=== PATIENT | female | born 1960 | race Caucasian/White ===

== ENCOUNTER 2016-03-16 12:59 | Emergency (ER) | payer MEDICARE, MEDICAID ==
[2016-03-16 13:22] VITALS: BP 153/80
--- NOTE | 2016-03-16 13:22 | UC ---
Respiratory Complaint HPI - HPI Summary HPI Summary: Sob and pain with inspiration for 2 days. Patient reports fever of 102/101 last night and this morning. States she got a flu vaccine in November - History of Current Complaint Chief Complaint: UCRespiratory Stated Complaint: RESP Time Seen by Provider: 03/16/16 13:15 Hx Obtained From: Patient Hx Last Menstrual Period: MENOPAUSE ?: No Onset/Duration: Gradual Onset, Lasting Days - 2, Still Present Timing: Constant Severity Initially: Moderate Severity Currently: Moderate Pain Intensity: 5 Character: Cough: Nonproductive Aggravating Factors: Deep Breaths Alleviating Factors: Bronchodilator - neb Associated Signs And Symptoms: Positive: Fever, Chills, Pleuritic Chest Pain, URI, Sinus Discomfort - Allergies/Home Medications Allergies/Adverse Reactions: Allergies Allergy/AdvReac Type Severity Reaction Status Date / Time Codeine Allergy Difficulty Verified 03/16/16 13:23 Breathing, FACE RED AND SWOLLEN Levofloxacin [From Levaquin] Allergy STOP Verified 03/16/16 13:23 BREATHING Penicillins Allergy Rash Verified 03/16/16 13:23 Sulfa Drugs Allergy Rash Verified 03/16/16 13:23 Tetracycline Allergy Rash Verified 03/16/16 13:23 Azithromycin AdvReac Diarrhea Verified 03/16/16 13:23 Home Medications: Home Medications Acetaminophen [Acetaminophen Extra Stren] 1,000 mg PO PRN 03/16/16 [History] Dextromethorphan Polistirex [Robitussin 12 Hour Cough] 30 mg PO PRN 03/16/16 [ History] PMH/Surg Hx/FS Hx/Imm Hx Previously Healthy: No Endocrine History Of: Reports: Dyslipidemia Denies: Diabetes Cardiovascular History Of: Reports: Hypertension - ON MEDS Denies: Pacemaker/ICD, Congestive Heart Failure Respiratory History Of: Reports: COPD, Asthma GI/ History Of: Reports: Gastrointestinal Bleed Denies: Renal Disease Psychological History Of: Reports: Anxiety, Depression, Bipolar Disorder Cancer History Of: Denies: Breast Cancer Other History Of: Negative For: Anticoagulant Therapy - Surgical History Surgical History: Yes Surgery Procedure, Year, and Place: fusion cervical spine(PART OF METAL REMOVED BUT DOES STILL HAVE METAL IN NECK),. BILATERAL SHOULDER REPAIRS 4 YRS AGO,. laparoscopy of bowel,. both elbows PINCHED NERVES - Family History Known Family History: Positive: Cardiac Disease - father [place] >55 y/o, Hypertension, Respiratory Disease - COPD in mother - Social History Occupation: Disabled Lives: Alone Alcohol Use: Rare Substance Use Type: None Smoking Status (MU): Heavy Every Day Tobacco Smoker Type: Cigarettes Have You Smoked in the Last Year: Yes - "I smoked my last cigarette this morning 03/16/16" "I have patches" Household Exposure Type: Cigarettes - Immunization History Most Recent Influenza Vaccination: 11/2015 Most Recent Tetanus Shot: last 10 years Most Recent Pneumonia Vaccination: none Review of Systems Constitutional: Fever, Chills, Fatigue Skin: Negative Eyes: Negative ENT: Nasal Discharge Respiratory: Shortness Of Breath, Cough Cardiovascular: Chest Pain Gastrointestinal: Negative Genitourinary: Negative Motor: Negative Neurovascular: Negative Musculoskeletal: Negative Neurological: Negative Psychological: Negative All Other Systems Reviewed And Are Negative: Yes Physical Exam Triage Information Reviewed: Yes Appearance: Well-Appearing, No Pain Distress, Obese Vital Signs Reviewed: Yes Eye Exam: Normal Eyes: Positive: Conjunctiva Clear ENT Exam: Normal ENT: Positive: Normal ENT inspection, Hearing grossly normal, Pharynx normal, TMs normal. Negative: Nasal congestion, Nasal drainage, Tonsillar swelling, Tonsillar exudate, Trismus, Muffled/hoarse voice Dental Exam: Normal Neck exam: Normal Neck: Positive: Supple, Nontender, No Lymphadenopathy Respiratory Exam: Normal Respiratory: Positive: Chest non-tender, No respiratory distress, No accessory muscle use, Decreased breath sounds Cardiovascular Exam: Normal Cardiovascular: Positive: RRR, No Murmur, Pulses Normal, Brisk Capillary Refill Musculoskeletal Exam: Normal Musculoskeletal: Positive: Strength Intact, ROM Intact, No Edema Neurological Exam: Normal Neurological: Positive: Alert, Muscle Tone Normal Psychological Exam: Normal Skin Exam: Normal Respiratory Course/Dx - Course Course Of Treatment: biaxin, prednisone, continue nebs, smoking cesation information and support, follow with pcp - Differential Dx/Diagnosis Differential Diagnosis/HQI/PQRI: Asthma, Bronchitis, Exacerbation Of COPD, Influenza, Laryngitis, Lower Resp Infection Provider Diagnoses: Acute exacebation of chronic bronchitis, Nicotine Dependant Discharge - Discharge Plan Condition: Stable Disposition: HOME Prescriptions: Clarithromycin TAB* [Biaxin TAB*] 500 mg PO BID #14 tab predniSONE TAB* [Deltasone TAB*] 10 mg PO DAILY #20 tab Patient Education Materials: How to Stop Smoking (ED), Cigarette Smoking and Your Health (GEN), COPD (Chronic Obstructive Pulmonary Disease) (ED), Chronic Bronchitis (ED), How to Use a Nebulizer (ED) Referrals: Yvoana Montoya MD [Primary Care Provider] - 7 Days Additional Instructions: Good [place] on continuing to be cigarette Free!!! Great Job!!!
--- NOTE | 2016-03-16 14:06 | RAD ---
INDICATION: Fever, shortness of breath, chest congestion. Anterior and posterior chest pain multiple days. COMPARISON: February 04, 2016 chest radiograph and October 31, 2015 CT. TECHNIQUE: Dual energy PA and routine lateral views of the chest were obtained. REPORT: Negative for alveolar consolidation, focal pulmonary lesions, pleural effusion, pneumothorax. Negative for cardiomegaly. Unremarkable central pulmonary vasculature. Mild RIGHT hilar fullness corresponds with borderline enlarged lymph nodes on prior CT. LEFT posterior cervical fusion hardware noted. Multilevel mild thoracic degenerative spondylosis. IMPRESSION: 1. No evidence for pneumonia or pulmonary edema. 2. Mild RIGHT hilar fullness corresponds with borderline enlarged lymph nodes on prior CT.
== END 2016-03-16 14:25 | disposition home or self-care (01) ==
LOC: UCEAST 12:59
DX: J42 Unspecified chronic bronchitis (principal); I10 Essential (primary) hypertension; Z88.5 Allergy status to narcotic agent; Z88.1 Allergy status to other antibiotic agents; Z88.0 Allergy status to penicillin; Z88.2 Allergy status to sulfonamides; F17.210 Nicotine dependence, cigarettes, uncomplicated
CPT/HCPCS: 71020; 99212; G0463

== ENCOUNTER → 2016-05-21 06:59 | Day surgery (SDC) | payer MEDICARE, MEDICAID ==
[~2016-05-21 06:59] MED LIST: Buffered Lidocaine 1% SYRIN* 3 ML/SYR SYRINGE INTRADERM ONE; Dexamethasone IV* 4 MG/ML 1 ML (4 MG) IV SLOW PU ONE; Dexamethasone IV* 4 MG/ML 1 ML (4 MG) ONE; DiMENhydriNATE IV* 50 MG/ML VIAL IV PUSH PRN; Famotidine IV* 10 MG/ML 2 ML (20 mg) IV ONE; Famotidine IV* 10 MG/ML 2 ML (20 mg) ONE; HYDROmorphone* 1 MG/ML 1 ML SYR ONE; Ketorolac INJ* 30 MG/ML 1 ML VIAL ONE; Levalbuterol 1.25MG/0.5ML NEB ONE; Lidocaine 2% PF* 5 ML VIAL ONE; Midazolam* 1 MG/ML 2 ML VIAL (2 MG) ONE; Ondansetron INJ* 2 MG/ML VIAL IV PRN; Ondansetron INJ* 2 MG/ML VIAL ONE; PROCHLORPERAZINE INJ 5 MG/ML 2 ML VIAL IV PRN; Propofol* 10 MG/ML 20 ML BTL IV PUSH ONE; Scopolamine 1.5 mg* PATCH TRANSDERM PRN; Scopolomine PATCH Remove* 1 NOTE MISC PATCH OFF ONE; ceFOXitin 2 GM IVPREMIX* 2 GM/50 ML BAG ONE; fentaNYL* 50 MCG/ML 2 ML VIAL (100 MCG VIAL) IV PRN; fentaNYL* 50 MCG/ML 2 ML VIAL (100 MCG VIAL) ONE
[2016-05-21 11:55] VITALS: BP 121/68
--- NOTE | 2016-05-21 16:16 | OP ---
OPERATIVE REPORT: DATE OF OPERATION: 05/21/16 DATE OF : 62 SURGEON: Brittney Figueroa MD ANESTHESIOLOGIST: Dr. Zavala. ANESTHESIA: General endotracheal. PRE-OP DIAGNOSIS: Endometrial mass. POST-OP DIAGNOSIS: Endometrial polyp. OPERATIVE PROCEDURE: Dilation and curettage, hysteroscopic resection of endometrial polyp. ESTIMATED BLOOD LOSS: Minimal. URINE OUTPUT: 200 cc of yellow urine. FLUIDS: A 1000 cc of crystalloid. Deficit 185 cc. FINDINGS: Reveal normal tubal ostia bilaterally. Normal-appearing fundus. A small endometrial polyp extending off the left posterolateral uterine wall. Normal- appearing cervix. COMPLICATIONS: None apparent. DISPOSITION: Stable to recovery room. SPECIMENS: Endometrial polyp and curettings. DESCRIPTION OF PROCEDURE: The patient was placed in dorsal lithotomy position. Legs were placed in universal Tavon stirrups. The perineum and vagina were prepped and dapped in the sterile standard fashion. The patient was then identified with universal protocol for correct procedure, patient, and position. A straight cath was then used to drain the bladder for approximately 200 cc of yellow urine. Straight cath was removed, sterile speculum was inserted. Cervix was visualized and the anterior lip grasped with a single- tooth tenaculum and dilated to a #23 Prat dilator. A MyoSure hysteroscope was then inserted conforming normal tubal ostia and small 1 cm endometrial polyp. The resection of the polyp was carried out with standard technique. The hysteroscope was then removed. A curettage was performed with good sampling in all 4 quadrants. Single-tooth tenaculum was removed. Hemostasis noted. Sterile speculum removed. All sponge, instrument, and blade counts were correct throughout the case. The patient tolerated the procedure well and went to recovery room in stable condition. [id number]/[facility] #: [id number] [facility]
== END | disposition home or self-care (01) ==
LOC: OR 06:59
PROVIDERS: ATTEND Obstetrics & Gynecology
DX: N84.0 Polyp of corpus uteri (principal); F17.210 Nicotine dependence, cigarettes, uncomplicated; I10 Essential (primary) hypertension; J45.909 Unspecified asthma, uncomplicated
CPT/HCPCS: 88305; A9270-GY; J0694; J1100; J1170; J1885; J2250; J2405; J2704; J3010

== ENCOUNTER 2016-08-13 18:33 | Emergency (ER) | payer MEDICARE, MEDICAID ==
[2016-08-13] MEDS ORDERED: Ketorolac INJ* 60 MG/2 ML VIAL IM ONE (20:03)
[2016-08-13 20:14] LABS: Hematocrit 43 % (35-47); Hemoglobin 14.2 g/dl (12.0-16.0); Mean Corpuscular HGB Conc 33 g/dl (31-36); Mean Corpuscular Hemoglobin 30 pg (27-31); Mean Corpuscular Volume 91 fL (80-97); Mean Platelet Volume 8 um3 (7.4-10.4); Red Blood Count 4.72 10^6/ul (4.0-5.4); Red Cell Distribution Width 15 % (10.5-15); White Blood Count 13.1 10^3/ul (3.5-10.8)
--- NOTE | 2016-08-13 20:34 | RAD ---
Indication: Chest pain for the last month. Shortness of breath. History of COPD and tobacco use. Comparison: August 06, 2016 Technique: Sitting AP and lateral chest views. Report: Elevated lung volumes and both diffuse mild prominence of the interstitial markings and patchy rarefaction of the mid to upper lung zone interstitial markings. No alveolar consolidation, focal pulmonary lesion, pleural effusion, pneumothorax. The heart, pulmonary vasculature, and mediastinal contours are unremarkable. LEFT posterior element spinal fixation hardware at C6-C7. Chronic postsurgical or gross traumatic osteolysis change at the distal clavicles. IMPRESSION: Stigmata of obstructive lung disease. No acute pulmonary or cardiac process evident.
[2016-08-13] MEDS ORDERED: Ondansetron ODT TAB* 4 MG ONE (20:41)
[2016-08-13 20:49] LABS: Albumin 3.7 g/dL (3.2-5.2); BUN/Creatinine Ratio 17.6 (8-20); Calcium 9.1 mg/dL (8.6-10.3); EGFR African American 105.2 (>60); EGFR Non-African American 81.8 (>60); Total Bilirubin 0.2 mg/dL (0.2-1.0); Total Protein 6.7 g/dL (6.4-8.9)
[2016-08-13 20:52] LABS: Potassium 3.9 mmol/L (3.5-5.0)
[2016-08-13] MEDS ORDERED: Ondansetron ODT TAB* 4 MG PO ONE (20:52)
--- NOTE | 2016-08-13 20:54 | ED ---
Fredi Pack Thomas, scribed for Nael Caballero MD on 08/13/16 at 2000 . HPI Chest Pain - HPI Summary HPI Summary: The pt is a 55 y/o F presenting to the ED c/o CP that began 1 month ago. Her pain is described as "pressure, knotlike" and is worse since this AM. The pt takes Tylenol, Advil and Oxycodone for her pain, and she claims that her pain is unaffected by these Tx. She additionally c/o fevers at night, Tmax 102. Recently she went to her PCP who diagnosed her with Lyme Disease and treated her with Abx. She was called by her PCP today and told that she was negative for Lyme Disease. The pt took Advil earlier in the day. SHx: tobacco use, 1 PPD. - History of Current Complaint Chief Complaint: EDChestPainROMI Time Seen by Provider: 08/13/16 19:54 Hx Obtained From: Patient Onset/Duration: Started Weeks Ago - 1 month ago, Still Present, Worse Since - this AM Timing: Constant Current Severity: Severe Pain Intensity: 10 Pain Scale Used: 0-10 Numeric Character: Pressure/Squeezing, Other: - "knotlike" Aggravating Factor(s): Nothing Alleviating Factor(s): Nothing, Other: - NEG: Oxycodone, Tylenol, Advil Associated Signs and Symptoms: Positive: Fever - at night, Tmax 102 - Additional Pertinent History Primary Care Physician: [id number] - Allergy/Home Medications Allergies/Adverse Reactions: Allergies Allergy/AdvReac Type Severity Reaction Status Date / Time Codeine Allergy Difficulty Verified 08/13/16 20:22 Breathing, FACE RED AND SWOLLEN Levofloxacin [From Levaquin] Allergy STOP Verified 08/13/16 20:22 BREATHING Penicillins Allergy Rash Verified 08/13/16 20:22 Sulfa Drugs Allergy Rash Verified 08/13/16 20:22 Tetracycline Allergy Rash Verified 08/13/16 20:22 Azithromycin AdvReac Diarrhea Verified 08/13/16 20:22 PMH/Surg Hx/FS Hx/Imm Hx Previously Healthy: No Endocrine/Hematology History: Denies: Hx Anticoagulant Therapy, Hx Blood Disorders, Hx Diabetes Cardiovascular History: Reports: Hx Hypercholesterolemia, Hx Hypertension - ON MEDICATION Denies: Hx Congestive Heart Failure, Hx Pacemaker/ICD, Other Cardiovascular Problems/Disorders Respiratory History: Reports: Hx Asthma, Hx Chronic Obstructive Pulmonary Disease (COPD), Other Respiratory Problems/Disorders - PNEUMONIA Denies: Hx Sleep Apnea GI History: Reports: Hx Diverticulosis, Hx Gastroesophageal Reflux Disease, Hx Gastrointestinal Bleed, Hx Hiatal Hernia Denies: Other GI Disorders History: Reports: Other Problems/Disorders - UTI's in past Denies: Hx Renal Disease Musculoskeletal History: Reports: Hx Arthritis - bilateral SHOULDER Denies: Other Musculoskeletal History Sensory History: Reports: Hx Cataracts - tammy, Hx Contacts or Glasses - for reading Denies: Hx Hearing Aid Opthamlomology History: Reports: Hx Cataracts - tammy, Hx Contacts or Glasses - for reading Neurological History: Denies: Other Neuro Impairments/Disorders Psychiatric History: Reports: Hx Anxiety, Hx Depression, Hx Bipolar Disorder Denies: Hx Panic Disorder - Cancer History Hx Chemotherapy: No Hx Radiation Therapy: No - Surgical History Surgery Procedure, Year, and Place: fusion cervical spine(PART OF METAL REMOVED BUT DOES STILL HAVE METAL IN NECK),. BILATERAL SHOULDER REPAIRS 4 YRS AGO,. laparoscopy of bowel,. both elbows PINCHED NERVES Hx Anesthesia Reactions: No Infectious Disease History: Reports: Hx of Known/Suspected MRSA - 10 yrs ago- pt states in urine Denies: Traveled Outside the [place] in Last 30 Days - Family History Known Family History: Positive: Cardiac Disease - father [place] >55 y/o, Hypertension, Respiratory Disease - COPD in mother - Social History Alcohol Use: Rare Alcohol Amount: 2 per year Substance Use Type: Reports: None Hx Tobacco Use: Yes Smoking Status (MU): Heavy Every Day Tobacco Smoker Type: Cigarettes Amount Used/How Often: 1/2 ppd Length of Time of Smoking/Using Tobacco: since age 17 Have You Smoked in the Last Year: Yes - "I smoked my last cigarette this morning 03/16/16" "I have patches" Review of Systems Positive: Fever - at night, Tmax 102 Eyes: Negative ENT: Negative Positive: Chest Pain - onset 1 month ago, "pressure and knotlike" Respiratory: Negative Gastrointestinal: Negative Genitourinary: Negative Musculoskeletal: Negative Skin: Negative Neurological: Negative Psychological: Normal All Other Systems Reviewed And Are Negative: Yes Physical Exam Triage Information Reviewed: Yes Vital Signs On Initial Exam: Initial Vitals Temp Pulse Resp BP Pulse Ox 98.5 F 96 20 162/81 92 08/13/16 18:34 08/13/16 18:34 08/13/16 18:34 08/13/16 18:34 08/13/16 18:34 Vital Signs Reviewed: Yes Appearance: Positive: Well-Appearing, Pain Distress - mild discomfort Skin: Positive: Warm, Mottled @ Eyes: Positive: BRYANNA ENT: Positive: Hearing grossly normal Neck: Positive: Supple, Nontender Respiratory/Lung Sounds: Positive: Clear to Auscultation, Breath Sounds Present Cardiovascular: Positive: RRR Abdomen Description: Positive: Nontender, Soft Bowel Sounds: Positive: Present Musculoskeletal: Positive: Strength/ROM Intact Neurological: Positive: Alert, Oriented to Person Place, Time, Normal Gait Psychiatric: Positive: Affect/Mood Appropriate Diagnostics - Vital Signs Vital Signs Temp Pulse Resp BP Pulse Ox 08/13/16 18:34 98.5 F 96 20 162/81 92 - Laboratory Lab Results: Lab Results 08/13/16 08/13/16 08/13/16 Range/Units 20:06 20:06 20:06 WBC 13.1 H (3.5-10.8) 10^3/ul RBC 4.72 (4.0-5.4) 10^6/ul Hgb 14.2 (12.0-16.0) g/dl Hct 43 (35-47) % MCV 91 (80-97) fL MCH 30 (27-31) pg MCHC 33 (31-36) g/dl RDW 15 (10.5-15) % Plt Count 304 (150-450) 10^3/ul MPV 8 (7.4-10.4) um3 Neut % (Auto) 69.7 (38-83) % Lymph % (Auto) 20.9 L (25-47) % [place] % (Auto) 8.1 (1-9) % Eos % (Auto) 0.6 (0-6) % Baso % (Auto) 0.7 (0-2) % Absolute Neuts (auto) 9.2 H (1.5-7.7) 10^3/ul Absolute Lymphs (auto) 2.7 (1.0-4.8) 10^3/ul Absolute Monos (auto) 1.1 H (0-0.8) 10^3/ul Absolute Eos (auto) 0.1 (0-0.6) 10^3/ul Absolute Basos (auto) 0.1 (0-0.2) 10^3/ul Absolute Nucleated RBC 0.01 10^3/ul Nucleated RBC % 0.1 Sodium 137 (133-145) mmol/L Potassium 3.9 (3.5-5.0) mmol/L Chloride 107 (101-111) mmol/L Carbon Dioxide 26 (22-32) mmol/L Anion Gap 4 (2-11) mmol/L BUN 13 (6-24) mg/dL Creatinine 0.74 (0.51-0.95) mg/dL Est GFR ( Amer) 105.2 (>60) Est GFR (Non-Af Amer) 81.8 (>60) BUN/Creatinine Ratio 17.6 (8-20) Glucose 91 (70-100) mg/dL Lactic Acid 0.6 (0.5-2.0) mmol/L Calcium 9.1 (8.6-10.3) mg/dL Total Bilirubin 0.20 (0.2-1.0) mg/dL AST 18 (13-39) U/L ALT 12 (7-52) U/L Alkaline Phosphatase 68 (34-104) U/L Troponin I 0.00 (<0.04) ng/mL Total Protein 6.7 (6.4-8.9) g/dL Albumin 3.7 (3.2-5.2) g/dL Globulin 3.0 (2-4) g/dL Albumin/Globulin Ratio 1.2 (1-3) Result Diagrams: 08/13/16 20:06 08/13/16 20:06 Lab Statement: Any lab studies that have been ordered have been reviewed, and results considered in the medical decision making process. - Radiology CXR Xray Interpretation: No Acute Changes - Stigmata of obstructive lung disease. No acute pulmonary or cardiac process evident. Radiology Interpretation Completed By: Radiologist - EKG 18:44 Cardiac Rate: NL - 88 EKG Interpretation: RBBB Re-Evaluation - Re-Evaluation First Eval Re-Evaluation Time: 20:58 Change: Improved - results d/w pt Chest Pain Course/Dx - Diagnoses Provider Diagnoses: Chest pain Discharge - Discharge Plan Condition: Stable Disposition: HOME Patient Education Materials: Chest Pain (ED) Referrals: Yovana Montoya MD [Primary Care Provider] - 3 Days The documentation as recorded by the Fredi hagan Thomas accurately reflects the service I personally performed and the decisions made by me, Nael Caballero MD.
[2016-08-13 22:58] LABS: Urine Bacteria Absent (Absent); Urine Bilirubin Negative (Negative); Urine Glucose Negative (Negative); Urine Nitrite Negative (Negative)
[2016-08-13 23:55] VITALS: BP 162/80
== END 2016-08-13 23:50 | disposition home or self-care (01) ==
LOC: ED 18:33
DX: R07.9 Chest pain, unspecified (principal); F17.210 Nicotine dependence, cigarettes, uncomplicated
CPT/HCPCS: 36415; 71020; 80053; 81003; 81015; 83605; 84484; 85025; 93005; 96372; 99283; A9270-GY; J1885

== ENCOUNTER 2017-03-09 15:48 | Emergency (ER) | payer MEDICARE, MEDICAID ==
[2017-03-09 16:01] VITALS: BP 150/72
--- NOTE | 2017-03-09 16:11 | UC ---
Upper Extremity HPI - HPI Summary HPI Summary: Pt presents with left shoulder, elbow, and wrist pain s/p fall yesterday. She tells me that yesterday she was downtown waiting for her cab and stepped off the curb onto a patch of ice, her foot slipped forward and she fell onto her left side. Did not hit her head. Woke up this morning with pain in left shoulder , elbow, and wrist. She takes oxycodone for other pain and says this has been helping for this new injury. Denies SOB, chest pain, headaches, dizziness, numbness, tingling, or weakness. - History of Current Complaint Chief Complaint: UCUpperExtremity Stated Complaint: ARM INJURY Time Seen by Provider: 03/09/17 16:04 Hx Obtained From: Patient Hx Last Menstrual Period: MENOPAUSE Onset/Duration: Sudden Onset Severity Initially: Severe Severity Currently: Severe Pain Intensity: 9 Pain Scale Used: 0-10 Numeric Aggravating Factor(s): Movement, Lifting - Allergies/Home Medications Allergies/Adverse Reactions: Allergies Allergy/AdvReac Type Severity Reaction Status Date / Time Codeine Allergy Difficulty Verified 03/09/17 15:57 Breathing, FACE RED AND SWOLLEN Levofloxacin [From Levaquin] Allergy STOP Verified 03/09/17 15:57 BREATHING Penicillins Allergy Rash Verified 03/09/17 15:57 Sulfa Drugs Allergy Rash Verified 03/09/17 15:57 Tetracycline Allergy Rash Verified 03/09/17 15:57 Azithromycin AdvReac Diarrhea Verified 03/09/17 15:57 PMH/Surg Hx/FS Hx/Imm Hx Cardiovascular History: Hypertension Respiratory History: COPD Psychological History: Anxiety, Depression, Bipolar Disorder Other History Of: Negative For: Anticoagulant Therapy - Surgical History Surgical History: Yes Surgery Procedure, Year, and Place: fusion cervical spine(PART OF METAL REMOVED BUT DOES STILL HAVE METAL IN NECK),. BILATERAL SHOULDER REPAIRS 4 YRS AGO,. laparoscopy of bowel,. both elbows PINCHED NERVES - Family History Known Family History: Positive: Cardiac Disease - father [place] >55 y/o, Hypertension, Respiratory Disease - COPD in mother - Social History Alcohol Use: Rare Alcohol Amount: 2 per year Substance Use Type: None Smoking Status (MU): Heavy Every Day Tobacco Smoker Type: Cigarettes Amount Used/How Often: 1/2 ppd Length of Time of Smoking/Using Tobacco: since age 17 Have You Smoked in the Last Year: Yes - "I smoked my last cigarette this morning 03/16/16" "I have patches" Household Exposure Type: Cigarettes Cessation Counseling: Counseled 3+Min - 10 Min - Immunization History Most Recent Influenza Vaccination: 11/2015 Most Recent Tetanus Shot: last 10 years Most Recent Pneumonia Vaccination: none Review of Systems Constitutional: Negative Skin: Negative Respiratory: Negative Cardiovascular: Negative Gastrointestinal: Negative Musculoskeletal: Decreased ROM - Left shoulder and wrist, Other: - Pain left shoulder, elbow, and wrist Neurological: Negative Psychological: Negative All Other Systems Reviewed And Are Negative: Yes Physical Exam Triage Information Reviewed: Yes Appearance: Well-Appearing, No Pain Distress, Well-Nourished Vital Signs: Initial Vital Signs Temp 98 F 03/09/17 15:57 Pulse 87 03/09/17 15:57 Resp 15 03/09/17 15:57 BP 150/72 03/09/17 15:57 Pulse Ox 97 03/09/17 15:57 Vital Signs Reviewed: Yes Neck: Positive: Supple, No Lymphadenopathy, Other: - NTTP. FROM. Respiratory: Positive: No respiratory distress, No accessory muscle use Cardiovascular: Positive: RRR, No Murmur, Pulses Normal - Left UE Musculoskeletal: Positive: ROM Intact - Left wrist and elbow, No Edema, Strength Limited @ - Left shoulder due to pain, ROM Limited @ - Left shoulder due to pain, Other: - TTP over volar aspect of left wrist. TTP over lateral aspect of proximal left forearm. TTP over lateral left shoulder. No obvious bony deformities. Neurological: Positive: Alert, Other: - Sensations intact C4-T1 left UE Psychological: Positive: Age Appropriate Behavior Skin: Positive: Other - No ecchymosis or abrasions left UE Upper Extremity Course/Dx - Course Course Of Treatment: Wrist XR: IMPRESSION: NO FRACTURE OF THE WRIST IS NOTED. PROBABLE OLD ULNAR STYLOID PROCESS FRACTURE. Shoulder XR: IMPRESSION: Widening of AC joint likely due to old injury. No fracture of the left shoulder is noted. Elbow XR: IMPRESSION: No fracture of the left elbow is noted. Suspect her pain is due to soft tissue contusions. Advised to continue taking her at home pain medication as needed. Sling and wrist brace were provided for use for comfort. - Differential Dx/Diagnosis Provider Diagnoses: Left shoulder pain. Left elbow pain. Left wrist pain. Fall Discharge - Discharge Plan Condition: Stable Disposition: HOME Patient Education Materials: Wrist Sprain (ED) Referrals: Yovana Montoya MD [Primary Care Provider] - Additional Instructions: If you develop a fever, shortness of breath, chest pain, new or worsening symptoms - please call your PCP or go to the ED. Your blood pressure was high at todays visit. Please see your primary provider within 4 weeks for recheck and re-evaluation. 1) Rest, Ice, and Elevate your wrist and arm as much as possible over the next 24-48hours 2) Use the brace and sling as needed for discomfort, but try to be out of the sling when at home or when relaxing. Activities as tolerated. 3) May take ibuprofen 400mg every 6-8 hours as needed for pain.
--- NOTE | 2017-03-09 17:05 | RAD ---
Indication: Fall, left elbow pain. 4 views of left elbow demonstrates no fracture. No joint effusion is noted. No other bone or joint abnormality is noted. IMPRESSION: No fracture of the left elbow is noted.
--- NOTE | 2017-03-09 17:07 | RAD ---
Indication: Fall, left shoulder injury. 4 views of left shoulder demonstrates no fracture. There is evidence of prior AC joint surgery. IMPRESSION: Widening of AC joint likely due to old injury. No fracture of the left shoulder is noted.
--- NOTE | 2017-03-09 17:07 | RAD ---
Indication: Left wrist injury 3 views of the wrist demonstrates no fracture. There is likely degenerative changes of the radiocarpal joint. Evidence of old ulnar styloid fracture is noted.. IMPRESSION: NO FRACTURE OF THE WRIST IS NOTED. PROBABLE OLD ULNAR STYLOID PROCESS FRACTURE.
== END 2017-03-09 17:40 | disposition home or self-care (01) ==
LOC: UCEAST 15:48
DX: M25.512 Pain in left shoulder (principal); M25.522 Pain in left elbow; M25.532 Pain in left wrist; W00.0XXA Fall on same level due to ice and snow, initial encounter; Y92.480 Sidewalk as the place of occurrence of the external cause; I10 Essential (primary) hypertension; J44.9 Chronic obstructive pulmonary disease, unspecified; F31.9 Bipolar disorder, unspecified
CPT/HCPCS: 99213; G0463

== ENCOUNTER 2017-05-08 11:56 | Emergency (ER) | payer MEDICARE, MEDICAID ==
[2017-05-08 12:05] VITALS: BP 152/71
--- NOTE | 2017-05-08 12:37 | UC ---
Respiratory Complaint HPI - HPI Summary HPI Summary: This is a 56 yo female with COPD who presents with c/o 4d of cough, fever and mild SOB. She has been using her inhalers as prescribed including Breo and Incruse. She has a nebulizer machine at home, which she has been using but reports little improvement in symptoms. She had fever x 2d up to 102. No body aches. No n/v/d. Current smoker. - History of Current Complaint Chief Complaint: UCRespiratory Stated Complaint: COUGH,FEVER Hx Last Menstrual Period: MENOPAUSE Pain Intensity: 7 - Allergies/Home Medications Allergies/Adverse Reactions: Allergies Allergy/AdvReac Type Severity Reaction Status Date / Time azithromycin Allergy Diarrhea Verified 05/08/17 12:08 codeine Allergy Difficulty Verified 05/08/17 12:08 Breathing levofloxacin [From Levaquin] Allergy See Comment Verified 05/08/17 12:08 MS Codeine [Codeine] Allergy Difficulty Verified 04/26/17 15:49 Breathing, FACE RED AND SWOLLEN MS Levofloxacin Allergy STOP Verified 04/26/17 15:49 [From Levaquin] BREATHING MS Penicillins [Penicillins] Allergy Rash Verified 04/26/17 15:49 MS Sulfa Drugs [Sulfa Drugs] Allergy Rash Verified 04/26/17 15:49 MS Tetracycline Allergy Rash Verified 04/26/17 15:49 [Tetracycline] Penicillins Allergy Rash Verified 05/08/17 12:08 Sulfa (Sulfonamide Allergy Rash Verified 05/08/17 12:08 Antibiotics) tetracycline Allergy Rash Verified 05/08/17 12:08 MS Azithromycin AdvReac Diarrhea Verified 04/26/17 15:49 [Azithromycin] Home Medications: Home Medications Mirtazapine 7.5 mg PO 05/08/17 [History] Sertraline HCl [Zoloft] 200 mg PO 05/08/17 [History] PMH/Surg Hx/FS Hx/Imm Hx Respiratory History: COPD Other History Of: Negative For: Anticoagulant Therapy - Surgical History Surgical History: Yes Surgery Procedure, Year, and Place: fusion cervical spine(PART OF METAL REMOVED BUT DOES STILL HAVE METAL IN NECK),. BILATERAL SHOULDER REPAIRS 4 YRS AGO,. laparoscopy of bowel,. both elbows PINCHED NERVES REPAIRED. UTERINE POLYP REMOVED- - Family History Known Family History: Positive: Cardiac Disease - father [place] >55 y/o, Hypertension, Respiratory Disease - COPD in mother - Social History Alcohol Use: Rare Alcohol Amount: 2 per year Substance Use Type: None Smoking Status (MU): Light Every Day Tobacco Smoker Type: Cigarettes Amount Used/How Often: 1/2 ppd Length of Time of Smoking/Using Tobacco: since age 17 Have You Smoked in the Last Year: Yes - "I smoked my last cigarette this morning 03/16/16" "I have patches" Household Exposure Type: Cigarettes - Immunization History Most Recent Influenza Vaccination: 11/2015 Most Recent Tetanus Shot: last 10 years Most Recent Pneumonia Vaccination: none Review of Systems Constitutional: Fever, Fatigue Skin: Negative Eyes: Negative ENT: Sore Throat Respiratory: Shortness Of Breath, Cough Cardiovascular: Negative Gastrointestinal: Negative Genitourinary: Negative Motor: Negative Neurovascular: Negative Musculoskeletal: Negative Neurological: Negative Psychological: Negative Is Patient Immunocompromised?: No All Other Systems Reviewed And Are Negative: Yes Physical Exam Triage Information Reviewed: Yes Appearance: Ill-Appearing - mildly Vital Signs: Initial Vital Signs Temp 98.3 F 05/08/17 12:02 Pulse 92 05/08/17 12:02 Resp 18 05/08/17 12:02 BP 152/71 05/08/17 12:02 Pulse Ox 97 05/08/17 12:02 Vital Signs Reviewed: Yes Eye Exam: Normal ENT: Positive: Pharyngeal erythema - mild, TM dull Neck: Positive: Supple, Nontender, No Lymphadenopathy Respiratory: Positive: Wheezing - faint in upper airways. Negative: Crackles, Rhonchi Cardiovascular: Positive: RRR, No Murmur Abdomen Description: Positive: Nontender Musculoskeletal Exam: Normal Neurological Exam: Normal Psychological Exam: Normal Skin Exam: Normal UC Diagnostic Evaluation - Laboratory O2 Sat by Pulse Oximetry: 97 Diagnostic Studies Comment: Rapid flu - neg. CXR - no evidence of PNA or other acute process Respiratory Course/Dx - Course Course Of Treatment: 56 yo female with cough/fever. CXR neg for PNA, influenza testing neg. Treat for COPD exacerbation with doxycycline and short course of prednisone - Differential Dx/Diagnosis Differential Diagnosis/HQI/PQRI: Bronchitis, Exacerbation Of COPD, Lower Resp Infection Provider Diagnoses: COPD exacerbation Discharge - Sign-Out/Discharge Documenting (check all that apply): Discharge - Discharge Plan Condition: Stable Disposition: HOME Prescriptions: DOXYcycline CAP(*) [DOXYcycline 100MG CAP(*)] 100 mg PO BID #14 cap predniSONE TAB* [Deltasone TAB*] 40 mg PO DAILY #10 tab Patient Education Materials: Acute Bronchitis (ED) Referrals: Yovana Montoya MD [Primary Care Provider] - If Needed Additional Instructions: Instructions: 1. Cont your usual inhaled medications 2. Take antibiotics and prednisone as directed 3. Follow up with your PCP if symptoms do not improve - Billing Disposition and Condition Condition: STABLE Disposition: HOME
--- NOTE | 2017-05-08 13:04 | RAD ---
INDICATION: Cough, fever, chest pain. COMPARISON: January 10, [address] TECHNIQUE: Dual energy PA and routine lateral views of the chest were obtained. REPORT: Elevated lung volumes and both diffuse mild prominence of the interstitial markings and patchy rarefaction of the mid to upper lung zone interstitial markings. No focal pulmonary lesion, compelling alveolar consolidation, pleural effusion, pneumothorax. The heart, pulmonary vasculature, and mediastinal contours are unremarkable. LEFT side cervical spine posterior element fusion hardware. IMPRESSION: Stigmata of obstructive lung disease. No acute pulmonary or cardiac process evident.
== END 2017-05-08 13:23 | disposition home or self-care (01) ==
LOC: UCEAST 11:56
DX: J44.1 Chronic obstructive pulmonary disease with (acute) exacerbation (principal); Z88.1 Allergy status to other antibiotic agents; Z88.5 Allergy status to narcotic agent; Z88.0 Allergy status to penicillin; Z88.2 Allergy status to sulfonamides; F17.210 Nicotine dependence, cigarettes, uncomplicated
CPT/HCPCS: 71046; 87502; 99212; G0463

== ENCOUNTER 2017-07-10 18:47 | Emergency (ER) | payer MEDICARE, MEDICAID ==
[2017-07-10] MEDS ORDERED: diPHENhydraMINE IV* 50 MG/ML 1 ml VIAL (BENADRYL) IV ONE (19:08)
[2017-07-10] MEDS ORDERED: methylPREDNISolone 125 MG* 2 ML VIAL IV ONE (19:08)
[2017-07-10] MEDS ORDERED: Metoclopramide IV* 5 MG/ML 2 ML VIAL IV ONE (19:13)
[2017-07-10 19:29] LABS: ABS Basophils 0.2 10^3/ul (0-0.2); ABS Eosinophils 0.4 10^3/ul (0-0.6); ABS Monocytes 0.9 10^3/ul (0-0.8); ABS Neutrophils 6.8 10^3/ul (1.5-7.7); ABS Nucleated RBC 0 10^3/ul; Eosinophil % 3.4 % (0-6); Hematocrit 38 % (35-47); Hemoglobin 12.8 g/dl (12.0-16.0); Mean Corpuscular HGB Conc 34 g/dl (31-36); Mean Corpuscular Hemoglobin 30 pg (27-31); Mean Corpuscular Volume 90 fL (80-97); Mean Platelet Volume 6.9 um3 (7.4-10.4); Nucleated Red Blood Cells % 0.2; Platelet Count 284 10^3/ul (150-450); Red Blood Count 4.24 10^6/ul (4.0-5.4); Red Cell Distribution Width 14 % (10.5-15); White Blood Count 11.2 10^3/ul (3.5-10.8)
--- NOTE | 2017-07-10 19:39 | RAD ---
INDICATION: Headaches COMPARISON: July 17, 2008 TECHNIQUE: Noncontrast axial source images were acquired from the skull base to the vertex. FINDINGS: Ventricles/sulci: The ventricles and cisterns are normal in size and configuration for age. Brain parenchyma: There is no focal parenchymal finding, evidence of intracranial mass, or intracranial mass effect. Intracranial hemorrhage:None. Extra-axial spaces: There are no abnormal extra axial fluid collections or evidence of extra-axial mass. Calvarium: There is no calvarial fracture or other calvarial abnormality. Scalp: There is no evidence of scalp or extracalvarial soft tissue abnormality. Paranasal sinuses/mastoid: The paranasal sinuses and mastoid air cells are clear. Other: None. IMPRESSION: No acute intracranial findings or significant changes relative to the 2009 examinations
[2017-07-10 19:44] LABS: EGFR Non-African American 68.5 (>60)
--- NOTE | 2017-07-10 19:46 | RAD ---
INDICATION: Short of breath COMPARISON: May 08, 2017 TECHNIQUE: PA and lateral dual-energy views were obtained. FINDINGS: Bones/Soft Tissues: There are no acute bony findings. Cardiomediastinal: The cardiomediastinal silhouette is normal. Lungs: There are no infiltrates. Pleura: There are no pleural effusions. Other: None IMPRESSION: NO ACTIVE DISEASE.
[2017-07-10] MEDS ORDERED: Albuterol/Ipratropium NEB.SOL* Albuterol 2.5 MG/Ipratropium 0.5 MG 3 ML INH SCH (20:00)
[2017-07-10] MEDS ORDERED: oxyCODONE TAB* 5 MG TAB PO ONE (20:42)
[2017-07-10 21:05] VITALS: BP 154/91
--- NOTE | 2017-07-10 21:07 | ED ---
Iron Pack Stephanie, scribed for Allen Moreno MD on 07/10/17 at 1917 . Complex/Multi-Sys Presentation - HPI Summary HPI Summary: The pt is a 56 y/o F presenting to the ED with c/o SHEN that began 2 weeks ago. Symptoms include SOB, nausea, fever (101 F on 07/09/17) and L ear ache. She reports her prolactin was 7.5. - History Of Current Complaint Chief Complaint: EDHeadache Time Seen by Provider: 07/10/17 19:02 Hx Obtained From: Patient Onset/Duration: Gradual Onset, Lasting Weeks - 2, Still Present Timing: Constant Severity Currently: Moderate Character: Migraine Associated Signs And Symptoms: Positive: Headache, SOB, Nausea, Fever, Other - L ear ache - Allergies/Home Medications Allergies/Adverse Reactions: Allergies Allergy/AdvReac Type Severity Reaction Status Date / Time azithromycin Allergy Diarrhea Verified 05/08/17 12:08 codeine Allergy Difficulty Verified 05/08/17 12:08 Breathing levofloxacin [From Levaquin] Allergy See Comment Verified 05/08/17 12:08 Penicillins Allergy Rash Verified 05/08/17 12:08 Sulfa (Sulfonamide Allergy Rash Verified 05/08/17 12:08 Antibiotics) tetracycline Allergy Rash Verified 05/08/17 12:08 PMH/Surg Hx/FS Hx/Imm Hx Endocrine/Hematology History: Denies: Hx Anticoagulant Therapy, Hx Blood Disorders, Hx Diabetes Cardiovascular History: Reports: Hx Hypercholesterolemia, Hx Hypertension - ON MEDICATION Denies: Hx Congestive Heart Failure, Hx Pacemaker/ICD, Other Cardiovascular Problems/Disorders Respiratory History: Reports: Hx Asthma, Hx Chronic Obstructive Pulmonary Disease (COPD), Other Respiratory Problems/Disorders - PNEUMONIA Denies: Hx Sleep Apnea GI History: Reports: Hx Diverticulosis, Hx Gastroesophageal Reflux Disease, Hx Gastrointestinal Bleed, Hx Hiatal Hernia Denies: Other GI Disorders History: Reports: Other Problems/Disorders - UTI's in past Denies: Hx Renal Disease Musculoskeletal History: Reports: Hx Arthritis - bilateral SHOULDER Denies: Other Musculoskeletal History Sensory History: Reports: Hx Cataracts - tammy, Hx Contacts or Glasses - for reading Denies: Hx Hearing Aid Opthamlomology History: Reports: Hx Cataracts - tammy, Hx Contacts or Glasses - for reading Neurological History: Denies: Other Neuro Impairments/Disorders Psychiatric History: Reports: Hx Anxiety, Hx Depression, Hx Bipolar Disorder Denies: Hx Panic Disorder - Cancer History Hx Chemotherapy: No Hx Radiation Therapy: No - Surgical History Surgery Procedure, Year, and Place: fusion cervical spine(PART OF METAL REMOVED BUT DOES STILL HAVE METAL IN NECK),. BILATERAL SHOULDER REPAIRS 4 YRS AGO,. laparoscopy of bowel,. both elbows PINCHED NERVES REPAIRED. UTERINE POLYP REMOVED- Hx Anesthesia Reactions: No - Immunization History Date of Tetanus Vaccine: due now Date of Influenza Vaccine: utd Infectious Disease History: Yes Infectious Disease History: Reports: Hx of Known/Suspected MRSA - 10 yrs ago- pt states in urine Denies: Traveled Outside the [place] in Last 30 Days - Family History Known Family History: Positive: Cardiac Disease - father [place] >55 y/o, Hypertension, Respiratory Disease - COPD in mother - Social History Occupation: Disabled Lives: Alone Alcohol Use: Rare Alcohol Amount: 2 per year Substance Use Type: Reports: None Hx Tobacco Use: Yes Smoking Status (MU): Light Every Day Tobacco Smoker Type: Cigarettes Amount Used/How Often: 1/2 ppd Length of Time of Smoking/Using Tobacco: since age 17 Have You Smoked in the Last Year: Yes - "I smoked my last cigarette this morning 03/16/16" "I have patches" Review of Systems Positive: Fever Positive: Ear Ache - L Positive: Shortness Of Breath Positive: Nausea Positive: Headache All Other Systems Reviewed And Are Negative: Yes Physical Exam - Summary Physical Exam Summary: VITAL SIGNS: Reviewed. GENERAL: Patient is a well-developed and nourished FEMALE who is lying comfortable in the stretcher. Patient is not in any acute respiratory distress. HEAD AND FACE: No signs of trauma. No ecchymosis, hematomas or skull depressions. No sinus tenderness. EYES: PERRLA, EOMI x 2, No injected conjunctiva, no nystagmus. EARS: Hearing grossly intact. Ear canals and tympanic membranes are within normal limits. MOUTH: Oropharynx within normal limits. NECK: Supple, trachea is midline, no adenopathy, no JVD, no carotid bruit, no c- spine tenderness, neck with full ROM. CHEST: Symmetric, no tenderness at palpation LUNGS: Wheezing, decreased breath sounds bilaterally CVS: Regular rate and rhythm, S1 and S2 present, no murmurs or gallops appreciated. ABDOMEN: Soft, non-tender. No signs of distention. No rebound no guarding, and no masses palpated. Bowel sounds are normal. EXTREMITIES: FROM in all major joints, no edema, no cyanosis or clubbing. NEURO: Alert and oriented x 3. No acute neurological deficits. Speech is normal and follows commands. SKIN: Dry and warm Triage Information Reviewed: Yes Vital Signs On Initial Exam: Initial Vitals Temp Pulse Resp BP Pulse Ox 98.5 F 77 22 164/105 96 07/10/17 18:56 07/10/17 18:56 07/10/17 18:56 07/10/17 18:56 07/10/17 18:56 Vital Signs Reviewed: Yes Diagnostics - Vital Signs Vital Signs Temp Pulse Resp BP Pulse Ox 07/10/17 18:56 98.5 F 77 22 164/105 96 - Laboratory Lab Results: Lab Results 07/10/17 07/10/17 07/10/17 Range/Units 19:21 19:21 19:21 WBC 11.2 H (3.5-10.8) 10^3/ul RBC 4.24 (4.0-5.4) 10^6/ul Hgb 12.8 (12.0-16.0) g/dl Hct 38 (35-47) % MCV 90 (80-97) fL MCH 30 (27-31) pg MCHC 34 (31-36) g/dl RDW 14 (10.5-15) % Plt Count 284 (150-450) 10^3/ul MPV 6.9 L (7.4-10.4) um3 Neut % (Auto) 60.5 (38-83) % Lymph % (Auto) 27.0 (25-47) % [place] % (Auto) 7.7 H (0-7) % Eos % (Auto) 3.4 (0-6) % Baso % (Auto) 1.4 (0-2) % Absolute Neuts (auto) 6.8 (1.5-7.7) 10^3/ul Absolute Lymphs (auto) 3.0 (1.0-4.8) 10^3/ul Absolute Monos (auto) 0.9 H (0-0.8) 10^3/ul Absolute Eos (auto) 0.4 (0-0.6) 10^3/ul Absolute Basos (auto) 0.2 (0-0.2) 10^3/ul Absolute Nucleated RBC 0 10^3/ul Nucleated RBC % 0.2 APTT 29.7 (26.0-36.3) seconds Sodium 137 L (139-145) mmol/L Potassium 3.7 (3.5-5.0) mmol/L Chloride 105 (101-111) mmol/L Carbon Dioxide 23 (22-32) mmol/L Anion Gap 9 (2-11) mmol/L BUN 16 (6-24) mg/dL Creatinine 0.86 (0.51-0.95) mg/dL Est GFR ( Amer) 88.1 (>60) Est GFR (Non-Af Amer) 68.5 (>60) BUN/Creatinine Ratio 18.6 (8-20) Glucose 112 H (70-100) mg/dL Calcium 9.1 (8.6-10.3) mg/dL Total Bilirubin 0.20 (0.2-1.0) mg/dL AST 16 (13-39) U/L ALT 16 (7-52) U/L Alkaline Phosphatase 70 (34-104) U/L Troponin I 0.00 (<0.04) ng/mL C-Reactive Protein 5.58 H (< 5.00) mg/L B-Natriuretic Peptide ( - 100) pg/mL Total Protein 7.1 (6.4-8.9) g/dL Albumin 3.9 (3.2-5.2) g/dL Globulin 3.2 (2-4) g/dL Albumin/Globulin Ratio 1.2 (1-3) //18 Range/Units 19:21 WBC (3.5-10.8) 10^3/ul RBC (4.0-5.4) 10^6/ul Hgb (12.0-16.0) g/dl Hct (35-47) % MCV (80-97) fL MCH (27-31) pg MCHC (31-36) g/dl RDW (10.5-15) % Plt Count (150-450) 10^3/ul MPV (7.4-10.4) um3 Neut % (Auto) (38-83) % Lymph % (Auto) (25-47) % [place] % (Auto) (0-7) % Eos % (Auto) (0-6) % Baso % (Auto) (0-2) % Absolute Neuts (auto) (1.5-7.7) 10^3/ul Absolute Lymphs (auto) (1.0-4.8) 10^3/ul Absolute Monos (auto) (0-0.8) 10^3/ul Absolute Eos (auto) (0-0.6) 10^3/ul Absolute Basos (auto) (0-0.2) 10^3/ul Absolute Nucleated RBC 10^3/ul Nucleated RBC % APTT (26.0-36.3) seconds Sodium (139-145) mmol/L Potassium (3.5-5.0) mmol/L Chloride (101-111) mmol/L Carbon Dioxide (22-32) mmol/L Anion Gap (2-11) mmol/L BUN (6-24) mg/dL Creatinine (0.51-0.95) mg/dL Est GFR ( Amer) (>60) Est GFR (Non-Af Amer) (>60) BUN/Creatinine Ratio (8-20) Glucose (70-100) mg/dL Calcium (8.6-10.3) mg/dL Total Bilirubin (0.2-1.0) mg/dL AST (13-39) U/L ALT (7-52) U/L Alkaline Phosphatase (34-104) U/L Troponin I (<0.04) ng/mL C-Reactive Protein (< 5.00) mg/L B-Natriuretic Peptide 14 ( - 100) pg/mL Total Protein (6.4-8.9) g/dL Albumin (3.2-5.2) g/dL Globulin (2-4) g/dL Albumin/Globulin Ratio (1-3) Result Diagrams: 07/10/17 19:21 07/10/17 19:21 Lab Statement: Any lab studies that have been ordered have been reviewed, and results considered in the medical decision making process. - Radiology CXR Xray Interpretation: No Acute Changes Radiology Interpretation Completed By: Radiologist - NO ACTIVE DISEASE. ED physician has reviewed this report. - CT Brain CT Interpretation: No Acute Changes CT Interpretation Completed By: Radiologist - No acute intracranial findings or significant changes relative to the 2009 examinations. ED physician has reviewed this report. - EKG 20:16 Cardiac Rate: NL EKG Rhythm: Sinus Rhythm - 95 BPM EKG Interpretation: RBBB EKG Comparison: No Significant Change - unchanged from 08/13/16 Complex Multi-Symp Course/Dx Assessment/Plan: This patient is a 56-year-old female who presents to the emergency room with a chief complaint of having headache especially in the left temporal area. The patient reports that shes been having these symptoms for the last couple weeks. She has seen the primary care physician who thinks that she shell follow with solutions market consultant for possible workup with an MRI. She also reports that she is having shortness of breath secondary to a COPD exacerbation. He denies any fever, denies any chills. Denies any blurred vision, denies any fever, denies any neck pain or photophobia. She also denies any chest pain or palpitations. In the ED course initially we obtained IV access the patient was given Reglan, Benadryl for the headache as well as for nausea. She was also given duonebs and Solu-Medrol for COPD exacerbation. Blood test results without any significant abnormality except for Webrils account of 11.2, sodium 137, glucose of 112 and CRP of 5.5. Chest x-ray impression: no active disease. Head CT impression: No acute intracranial findings or significant changes relative to 2009 examination. After the patient was given medications the symptoms have improved. Since all results and images are within normal limits the patient will be discharged home with follow-up with PCP. I discussed all the findings and test results with the patient. Patient was instructed to return to the emergency room immediately if any of the symptoms return or worsens. Plan of care was discussed with the patient and understands and agrees. All questions were answered at patient satisfaction. There were no further complaints or concerns. Lung exam before discharge: CTA B/L. Good air exchange. No wheezing or crackles heard. CVS: S1 and S2 present. No murmurs appreciated. Patient is alert and oriented x 3. Patient is hemodynamically stable. Patient will be discharged home with follow up PCP in the next 2-3 days - Diagnoses Provider Diagnoses: Headache, COPD exacerbation Discharge - Sign-Out/Discharge Documenting (check all that apply): Discharge/Admit/Transfer - Discharge - Discharge Plan Condition: Stable Disposition: HOME Patient Education Materials: COPD (Chronic Obstructive Pulmonary Disease) (DC) , Acute Headache (ED) Referrals: Yovana Montoya MD [Primary Care Provider] - 3 Days Additional Instructions: Follow-up with primary care physician. Attending with oxygen at home Return to the emergency department if she develops any other symptoms. - Billing Disposition and Condition Condition: STABLE Disposition: HOME The documentation as recorded by the Iron hagan Stephanie accurately reflects the service I personally performed and the decisions made by , Allen Moreno MD.
== END 2017-07-10 21:03 | disposition home or self-care (01) ==
LOC: ED 18:47
DX: J44.1 Chronic obstructive pulmonary disease with (acute) exacerbation (principal); R51 Headache; F31.9 Bipolar disorder, unspecified; F41.9 Anxiety disorder, unspecified; E78.00 Pure hypercholesterolemia, unspecified; I10 Essential (primary) hypertension; F17.210 Nicotine dependence, cigarettes, uncomplicated; I45.10 Unspecified right bundle-branch block
CPT/HCPCS: 36415; 70450; 71046; 80053; 83880; 84484; 85025; 85730; 86140; 93005; 96374; 96375; 99284; A9270-GY; J1200; J2765; J2930

== ENCOUNTER 2017-08-21 21:52 | Emergency (ER) | payer MEDICARE, MEDICAID ==
[2017-08-21] MEDS ORDERED: Magnesium Sulfate 2 GM IV* 2 GM/50 ML BAG IVPB ONE (22:18)
[2017-08-21] MEDS ORDERED: methylPREDNISolone 125 MG* 2 ML VIAL IV ONE (22:18)
--- OUTSIDE RECORDS SUMMARY | 2017-08-21 22:34 | XMS REPORT ---
:1960 External Reference #:[id number] Author Organization [facility] Address [address] [place] [address] Phone [phone] Care Team Providers Name Role Phone Yovana Montoya M.D. Primary Care Physician Unavailable Payers Type Date Identification Numbers Payment Provider Subscriber Medicare Primary Policy Number: [id number] Medicare - [facility] Kat Umanzor PayID: [id number] [address] [place] [address] Medicaid Policy Number: [id number] Medicaid Kat Umanzor PayID: [id number] [address] [place] [address] Problems Date Description Provider Status Onset: Asthma Active Onset: Right bundle branch block Active Onset: Bipolar disorder Active Onset: Environmental allergy Active Onset: 06/05/2014 Toxic diffuse goiter with no crisis Jolie Kilgore O.D. Active Onset: 06/05/2014 Nuclear senile cataract Jolie Kilgore O.D. Active Onset: 06/05/2014 Tear film insufficiency Jolie Kilgore O.D. Active Onset: 06/05/2014 Presbyopia Jolie Kilgore O.D. 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 Active Onset: 08/31/2016 Exophthalmos Bouchra Wen O.D. 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 Hydration 016 both eyes Oltz, O.D. 3-4 times a day Clonazepam Active Tablets 0.5mg take 1 Unknown 000 tablet three times a day Oxycodone HCL Active Tablets 10mg Jan, 000 Yovana M.D. Sertraline HCL Active Tablets 200mg take 1 Unknown 000 tablet once daily Ziprasidone Active Capsules 100mg Take 1 Unknown HCL 000 Capsule Before Bed Daily Trazodone HCL Active Tablets 100mg take 1 Unknown 000 tablet by mouth at bedtime Lisinopril Active Tablets 20mg Jan, 000 Yovana M.D. Amlodipine Active Tablets 5mg Jan, Besylate 000 Yovana M.DKamla Restasis Hx Emulsion 0.05% 180uni 1 drops H04.123 Jolie C. 016 - ts both eyes Oltz, O.D. twice a 016 day Restasis Hx Emulsion 0.05% 90Day 1 drops Jolie C. 015 - both eyes Oltz, O.D. twice a 016 day Vesicare 0 Hx Tablets 10mg take 1 Unknown 000 - tablet at bedtime 016 Omeprazole 0 Hx Capsules 20mg Unknown 000 - DR 017 Simvastatin 0 Hx Tablets 20mg take 1 Unknown 000 - tablet at bedtime 016 Tizanidine HCL 0 Hx Tablets 4mg Unknown 000 - 016 Proair HFA Hx Aerosol 108(90Base Inhale 2 Unknown 000 - ) mcg/Act Puffs Every 2 016 To 4 Hours as Needed For Cough, Wheeze And Shor Vital Signs Date Vital Result Comment 08/18/2017 BP Systolic 143 mmHg BP Diastolic 83 mmHg Heart Rate 63 /min Results Description No Information Procedures Date CPT Code Description Status 09/17/2016 31743 Determination Of Refractive State Completed 08/31/2016 02900 Est Patient Comprehensive Exam Completed 08/31/2016 46370 Close Lacrimal Punctum, Plug Completed 05/14/2015 49931 Est Patient Intermediate Exam Completed 03/25/2015 19876 Est Patient Comprehensive Exam Completed 06/05/2014 48465 Determination Of Refractive State Completed 06/05/2014 04303 New Patient Comprehensive Exam Completed 02/21/2009 99101 New Patient Comprehensive Exam Completed Plan of Care No Information Available
--- OUTSIDE RECORDS SUMMARY | 2017-08-21 22:34 | XMS REPORT ---
:1960 External Reference #:[id number] Author Organization [facility] Address [address] [place] [address] [place] [address] Phone [phone] Care Team Providers Name Role Phone Yovana Montoya MD Primary Care Physician Unavailable Payers Type Date Identification Numbers Payment Provider Subscriber Medicare Primary Effective: Policy Number: Medicare Kat Umanzor 2000 [id number] PayID: [id number] [address] [place] [address] [place] Policy Number: [id number] Medicaid Kat Umanzor Group Name: 1 1 [address] PayID: [id number] [place] [address] Problems Date Description Provider Status Onset: 10/29/2014 Dyspnea Melania Morfin MD Active Onset: 10/29/2014 Chronic obstructive lung disease Melania Morfin MD Active Onset: 10/29/2014 Tobacco user Melania Morfin MD Active Onset: 10/29/2014 Sleep disorder Melania Morfin MD Active Onset: 01/20/2015 Neck pain Eugenio Villegas M.D. 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 Active myelopathy Family History Date Family Member(s) Problem(s) Comments General Heart Disease Father Lung Cancer Father Emphysema Father Heart Disease Mother due to at age 67 COPD () Siblings 3 Siblings 1 Brother COPD , Others Healthy Social History Type Date Description Comments Lives With Son Occupation Disabled Cigarette Use Currently smokes 1-5 Cigarettes Daily Smokeless Tobacco Never Used Smokeless Tobacco ETOH Use Occasionally consumes alcohol Recreational Drug Use Denies Drug Use Smoking Light tobacco smoker (10 or fewer 3 per day cigarettes/day) Daily Caffeine Consumes on average 3 cups of regular coffee per day Exercise Type/Frequency Does not exercise Allergies, Adverse Reactions, Alerts Date Description Reaction Status Severity Comments 11/02/2011 Sulfa active 10/29/2014 Codeine active 10/29/2014 Levofloxacin active 10/29/2014 Penicillin active 10/29/2014 Sulfa Antibiotics active 10/29/2014 Tetracycline active 10/29/2014 Zithromax active 10/29/2014 Buspirone active 10/29/2014 Tetracycline active 08/11/2017 Bee Sting Anaphylaxis active Severe Medications Medication Date Status Form Strength Qnty SIG Indications Ordering Provider Cogentin 08/11/ Active Solution 1mg/ml 1 mg by mouth Melania 2018 two times per Shelbie, day Doxycycline 08/11/ Active Capsules 100mg 14caps 1 tablet by J44.1 Melania Monohydrate 2018 mouth every Shelbie, 12 hours Prednisone 08/11/ Active Tablets 10mg 30tabs 30mg daily J44.1 Melania 2018 for 1 week, Shelbie, 20mg daily MD for 1 week, 10 mg daily for 1 week Voltaren 07/12/ Active Gel 1% 900gm apply 4 gm to M25.561 Brock 2018 the affected F area 4 times Vickie, a day as MD needed for pain Chantix 05/11/ Active Tablets 0.5mg X 11 53tabs take 0.5 mg F17.210 Melania Starting 2018 & 1 mg X tab days 1-3, Shelbie, Month Kai 42 0.5 mg twice MD daily days 4-7, day 8 to end of pack take 1 mg twice daily Oxygen 10/27/ Active Misc 1units please use o2 J44.9 Melaina 2017 at 2l/min Shelbie, with exertion. pls provide pt with simply Pocket portable concentrator R09.02 Incruse 10/08/2016 Active Aerosol 62.5mcg/Inh 30units inhale one Melania Ellipta puff by Shelbie, mouth every MD day Besolate 09/21/2016 Active 2mg bid Melania Morfin MD Albuterol 06/24/2015 Active Nebulizer (2.5mg/3ML) 4units 1 unit nebl Melania Sulfate 0.083% every 6 Shelbie, hours as MD needed Epipen 2-Kai 10/28/2014 Active Solution 0.3mg/0.3ML use as Unknown Auto-Inject directed Oxycodone HCL 10/28/2014 Active Tablets 10mg 1 by mouth Unknown every 6 hours as needed pain Miralax 10/28/2014 Active Packet 3350NF 17 gm every Unknown day as needed Amlodipine 10/28/2014 Active Tablets 5mg 1 by mouth Unknown Besylate every day Clonazepam 10/28/2014 Active Tablets 0.5mg tid Unknown Lisinopril 10/28/2014 Active Tablets 20mg 1 by mouth Unknown every day Trazodone HCL 10/28/2014 Active Tablets 150mg 1 by mouth Unknown every night at bedtime Sertraline 10/28/2014 Active Tablets 200mg 1 by mouth Unknown HCL every day Ventolin HFA Active Aerosol 108(90Base) 2 puffs by Unknown mcg/Act mouth four times a day as needed Breo Ellipta Active Aerosol 200-25mcg/Inh inhale 1 Unknown puff by mouth once daily Baclofen Active Tablets 10mg take 1/2 tab Unknown every tid Detrol LA Active Caps ER 4mg take one Unknown 24HR capsule by mouth every hs Geodon Active 1 tab qhs Unknown Mirtazapine Active Tablets 7.5mg one tab at Unknown hs Spiriva 05/05/2015 - Hx Aerosol 2.5mcg/Act 4gm 2 puffs Melania Respimat 05/06/2015 every day MD Shelbie Incruse 05/05/2015 - Hx Aerosol 62.5mcg/Inh 30units 1 inhalation Melania Ellipta 09/20/2016 once daily MD Shelbie Symbicort 01/20/2015 - Hx Aerosol 80-4.5mcg/Act 3units 2 puff twice J Melania 09/20/2016 a day 4 Renan Morfin MD . 9 R06.02 Tudorvivian Pressair 01/20/2015 - Hx Aerosol 400mcg/Act 2units 1 puff Melania 05/06/2015 puff Shelbie twice a MD day Cogentin 10/29/2014 - Hx Solution 2mg 1 bid Melania 08/10/2017 MD Rupa Morfin Pressair 10/29/2014 - Hx Aerosol 400mcg/Act 2units 1 puff 496 Melania 01/20/2015 puff Shelbie, twice a MD day Symbicort 10/29/2014 - Hx Aerosol 80-4.5mcg/Ac 3units 2 puff 496 Melania 01/20/2015 t twice a Shelbie, day Nicotine Polacrilex 10/29/2014 - Hx Lozenges 4mg 60units 1 by 305. Melania 01/20/2015 mouth 1 Shelbie, every 4 MD hours as needed Prozac 10/28/2014 - Hx Capsules 20mg 1 by Unknown 10/29/2014 mouth every day Prilosec 10/28/2014 - Hx Capsules 20mg 1 by Unknown 09/20/2016 DR mouth every day Vesicare 10/28/2014 - Hx Tablets 10mg 1 by Unknown 09/20/2016 mouth every day Tizanidine HCL 10/28/2014 - Hx Capsules 4mg 1 three Unknown 09/20/2016 times a day as needed Proair HFA 10/28/2014 - Hx Aerosol 108(90Base) 2 puffs Unknown 09/20/2016 mcg/Act by mouth every 4 hours as needed Equate 10/28/2014 - Hx Tablet As Unknown 10/11/2016 Directed Flovent HFA 10/28/2014 - Hx Aerosol 110mcg/Act 2 puffs Unknown 09/20/2016 twice daily Simvastatin 10/28/2014 - Hx Tablets 20mg 1 by Unknown 10/28/2014 mouth every day Restasis 10/28/2014 - Hx Emulsion 0.05% one drops Unknown 09/20/2016 both eyes twice a day Zocor 10/28/2014 - Hx Tablets 20mg 1 by Unknown 09/20/2016 mouth every night at bedtime Norvasc 10/28/2014 - Hx Tablets 5mg 1 by Unknown 10/11/2016 mouth every day Naproxen 04/06/2013 - Hx Tablets 500mg 40tabs 1 tablet Kerry 09/20/2016 with food Segundo, po bid M.D. Percocet 10/26/2011 - Hx Tablets 5-325mg 60tabs 1-2 tabs Eliu 09/20/2016 po q4-6 Young, prn pain M.D. Cefdinir - Hx Capsules 300mg take 1 Unknown 10/30/2016 capsule by mouth twice a day Methylprednisolone - Hx TBPK 4mg take as Unknown 05/10/2017 directed Benztropine Mesylate - Hx Tablets 2mg Take 1 Unknown 05/10/2017 Tablet Twice Daily Ziprasidone HCL - Hx Capsules 80mg Sheila, 05/10/2017 MD Flaco Ranitidine HCL - Hx Tablets 150mg Jan, 05/10/2017 Yovana Henson MD Trazodone HCL - Hx Tablets 150mg Sheila, 05/10/2017 MD Flaco Sertraline HCL - Hx Tablets 100mg Sheila, 05/10/2017 MD Flaco Clarithromycin - Hx Tablets 500mg Jan, 05/10/2017 Yovana Henson MD 2ND Skin Scargel - Hx Gel Unknown 04/06/2017 Doxycycline Hyclate - Hx Capsules 100mg take 1 Unknown 08/10/2017 capsule by mouth twice a day for 7 days Prednisone - Hx Tablets 20mg take 2 Unknown 08/10/2017 tablets by mouth once daily for 5 days Medications Administered in Office Medication Date Status Form Strength Qnty SIG Indications Ordering Provider No Injection Administered Injection Brock F 018 MD Vickie Depomedrol Administered Injection Brock F 40MG 018 MD Vickie Depomedrol Administered Injection Kerry 80MG 014 Keya Raymond Depomedrol Administered Injection Eliu 80MG 012 Keya Busch Depomedrol Administered Injection Eliu 80MG 012 Keya Busch Depomedrol Administered Injection Eliu 40MG 012 Keya Busch Depomedrol Administered Injection Eliu 80MG 011 Keya Busch Depomedrol Administered Injection Eliu 40MG 011 Keya Busch Depomedrol Administered Injection Eliu 80MG 011 Keya Busch Depomedrol Administered Injection Eliu 80MG Olga Busch M.D. Immunizations CPT Code Status Date Vaccine Lot # [id number] Given 01/24/2008 Influenza Virus 3Yrs & Over 98376 Given 01/24/2008 Influenza Virus 3Yrs & Over 47480 Given 04/26/2007 Tdap - Tetanus/Diptheria/Acellular Pertussis 66098 Given 12/06/2006 Influenza Virus 3Yrs & Over 29181 Given 12/03/2005 Influenza Virus 3Yrs & Over Vital Signs Date Vital Result Comment 08/11/2017 Height 60 inches 5'0" Weight 158.38 lb Heart Rate 76 /min BP Systolic Sitting 152 mmHg Lue reg cuff BP Diastolic Sitting 92 mmHg Lue reg cuff Respiratory Rate 20 /min O2 % BldC Oximetry 93 % On 2L O2 BMI (Body Mass Index) 30.9 kg/m2 07/12/2017 Height 60 inches 5'0" Heart Rate 75 /min BP Systolic 124 mmHg BP Diastolic 84 mmHg Respiratory Rate 16 /min Body Temperature 98.0 F Pain Level 8 05/12/2017 Height 60 inches 5'0" Heart Rate 94 /min BP Systolic 136 mmHg BP Diastolic 90 mmHg Respiratory Rate 16 /min Body Temperature 98.0 F Pain Level 5 05/11/2017 Height 60 inches 5'0" Weight 160.00 lb Heart Rate 80 /min BP Systolic Sitting 132 mmHg BP Diastolic Sitting 78 mmHg Respiratory Rate 14 /min O2 % BldC Oximetry 95 % on 2L BMI (Body Mass Index) 31.2 kg/m2 04/07/2017 Height 60 inches 5'0" Weight 164.00 lb Heart Rate 97 /min Respiratory Rate 16 /min Body Temperature 97.6 F Pain Level 9 BMI (Body Mass Index) 32.0 kg/m2 12/30/2016 Height 60 inches 5'0" Weight 165.00 lb w/ shoes Heart Rate 90 /min reg BP Systolic Sitting 114 mmHg Lue, reg cuff BP Diastolic Sitting 70 mmHg Lue, reg cuff Respiratory Rate 16 /min Pain Level 7 right clavicle BMI (Body Mass Index) 32.2 kg/m2 11/11/2016 Height 60 inches 5'0" Weight 160.00 lb w/ shoes Heart Rate 70 /min reg BP Systolic Sitting 124 mmHg Rue, reg cuff BP Diastolic Sitting 84 mmHg Rue, reg cuff Respiratory Rate 16 /min O2 % BldC Oximetry 91 % on Ra BMI (Body Mass Index) 31.2 kg/m2 11/03/2016 Height 60 inches 5'0" Weight 160.00 lb Heart Rate 78 /min BP Systolic Sitting 134 mmHg BP Diastolic Sitting 82 mmHg Pain Level 7 BMI (Body Mass Index) 31.2 kg/m2 09/21/2016 Height 60 inches 5'0" Weight 160.00 lb Heart Rate 76 /min BP Systolic Sitting 116 mmHg BP Diastolic Sitting 64 mmHg Respiratory Rate 14 /min O2 % BldC Oximetry 95 % BMI (Body Mass Index) 31.2 kg/m2 01/20/2015 Height 60 inches 5'0" Weight 155.00 lb Heart Rate 82 /min BP Systolic Sitting 160 mmHg BP Diastolic Sitting 100 mmHg Pain Level 8 BMI (Body Mass Index) 30.3 kg/m2 10/29/2014 Height 60 inches 5'0" Weight 154.50 lb Heart Rate 98 /min BP Systolic 128 mmHg BP Diastolic 70 mmHg Respiratory Rate 14 /min Body Temperature 98.9 F O2 % BldC Oximetry 96 % BMI (Body Mass Index) 30.2 kg/m2 Neck Circumference in inches 15 04/06/2013 Height 60 inches 5'0" Weight 148.00 lb Heart Rate 120 /min BMI (Body Mass Index) 28.9 kg/m2 Results Test Date Test Result H/L Range Note Xray 09/23/2016 CT Lung Screening-Low Dose <pending> Procedures Date CPT Code Description Status 04/07/201765255 Inject/Drain Joint/Bursa Major W/O US Completed 10/27/2016 48661 Diffusing Capacity Completed 10/27/2016 14928 Plethysmography Determination Lung Volumes & Per Airway Completed Resist 10/27/2016 91145 Pulmonary Stress Test Simple Completed 10/27/2016 39546 Pulmonary Function><Bronchodil Completed 02/05/2016 88359 EKG, Interpretation Only Completed 10/27/2015 41009 Treadmill Interp/Report Only Completed 10/27/2015 03310 Stress Test Supervsn W/Out I/R Completed 04/06/2013 76230 Inject/Drain Joint/Bursa Major W/O US Completed 04/06/2013 66438 Xray Knee 3 Views Completed 01/19/2012 24780 Arthroscopy Shoulder Debridement Extensive Completed 01/19/2012 25168 Arthroscopy Shoulder Debridement Extensive Completed 01/11/2012 16195 EKG, Interpretation Only Completed 11/12/2011 26856 Inject/Drain Joint/Bursa Major W/O US Completed 11/03/2011 83416 Arthroscopy,Shoulder,Distal Claviculectomy Incl Dist Completed Articular SR 11/03/2011 96399 Arthroscopy,Shoulder,Distal Claviculectomy Incl Dist Completed Articular SR 11/03/2011 59573 Arthroscopy,Shoulder Decompression Of Subacromial Space Completed W/Acromio 11/03/2011 31571 Arthroscopy,Shoulder Decompression Of Subacromial Space Completed W/Acromio 11/03/2011 29922 Arthroscopy,Unlisted Procedure Completed 11/03/2011 04623 Arthroscopy,Unlisted Procedure Completed 09/02/2011 87466 Inject/Drain Joint/Bursa Major W/O US Completed 09/02/2011 51017 Inject/Drain Joint/Bursa Intermediate W/O US Completed 08/21/2011 31011 Treadmill Interp/Report Only Completed 08/21/2011 00780 Stress Test Supervsn W/Out I/R Completed 01/14/201151963 Inject/Drain Joint/Bursa Intermediate W/O US Completed 12/02/2010 37225 Inject/Drain Joint/Bursa Intermediate W/O US Completed 11/04/2010 82381 Inject/Drain Joint/Bursa Major W/O US Completed 09/30/2010 18070 Rad Shoulder Comp, Min. 2 Views Completed 04/26/2007 42916 EKG Tracing & Interpretation Completed 04/26/2007 98965 EKG Tracing & Interpretation Completed Encounters Type Date Location Provider CPT E/M Dx Office Visit 05/12/2017 [facility] 64604 M25.511 11:00a Senia ROBERTSON Office Visit 05/11/2017 [facility] [address] J44.9 10:45a [facility] R09.02 Z01.811 F17.210 Office Visit 04/07/2017 2:00p [facility] Johnston 47260 M25.511 Of Senia ROBERTSON M75.51 Office Visit 12/30/2016 10:00a [facility] Mcintsoh 22250 M25.511 Senia Johnston MD Office Visit 11/11/2016 10:00a [facility] [address] J44.9 Services [facility] R09.02 F17.210 Office Visit 11/03/2016 1:20p Neurosurgery Services Tim Bradley, 47290 M47.812 Of [facility] Keya Z98.1 Office Visit 09/21/2016 12:30p [facility] Melania Morfin MD G9695 R06.02 Services [facility] J44.9 F17.210 Z12.2 R05 Office Visit 02/05/2016 11:01a [facility] Denita Lackey, 66992 R07.89 Assoc, Hospitalists [place] J41.0 F41.9 Office Visit 02/04/2016 11:00a [facility] Denita Lackey, 63483 R07.89 Assoc,pc Hospitalists [place] J41.0 F41.9 Office Visit 10/27/2015 [facility] Morelia Jones, 27688 D72.829 9:49a Assoc,[facility] Hospitalists J44.1 R07.9 I10 Office Visit 01/20/2015 2:00p Neurosurgery Services Eugenio Villegas, 61473 M54.2 Of [facility] [place] Office Visit 10/29/2014 10:15a [facility] [place] [address] 786.05 Services Of [facility] 496 305.1 307.49 Office Visit 10/25/2014 1:33p [facility] Assoc,pc Luis Carlos Rivera M.D. 45702 578.9 Hospitalists Office Visit 04/06/2013 2:45p [facility] Kerry Raymond M.D. 77386 715.36 C.M.A. 727.51 844.1 Office Visit 10/20/2012 9:27a [facility] [place], [address] 557.1 Assoc,pc Hospitalists [place] 578.9 296.60 305.1 Office Visit 10/19/2012 9:25a [facility] Assoc,pc Lina Palacios, 42573 557.1 Hospitalists [place] 578.9 296.60 305.1 Office Visit 10/18/2012 9[facility] 25120 562.11 Assoc, Hospitalists M.Lidia 578.9 296.60 305.1 Office Visit 12/21/2011 10:15a [facility] Eliu Busch M.D. 15942 719.81 C.M.A. Office Visit 12/10/2011 11:15a [facility] Busch M.D. 64923 726.61 C.M.A. Office Visit 11/12/2011 11:30a [facility] Busch M.D. 21365 716.91 C.M.A. 726.10 719.41 Office Visit 09/14/2011 10:00a [facility] Eliu Busch M.D. 28569 726.2 C.M.A. Office Visit 09/02/2011 9:15a [facility] Busch M.D. 72034 726.2 C.M.A. 716.91 Office Visit 01/14/2011 9:00a [facility] Busch M.D. 12546 726.10 C.M.A. 716.91 Office Visit 12/02/2010 8:30a [facility] Busch M.D. 08446 726.10 C.M.A. 716.91 Office Visit 11/04/2010 10:45a [facility]u Busch M.D. 23284 726.10 C.M.A. Office Visit 09/30/2010 8:00a [facility]u Busch M.D. 75873 726.10 C.M.A. Office Visit 02/20/2009 3:45a [facility] Assoc, Lina Palacios, 43301 372.30 Hospitalists M.DKamla V72.83 Office Visit 06/27/2008 2:15a [facility] Assoc, Jewel Thomson, 58995 780.2 Hospitalists M.D. Office Visit 06/26/2008 2:15a [facility] Assoc, Jewel Thomson, 90376 780.2 Hospitalists M.D. Office Visit 06/25/2008 3:30a [facility], Jewel Thomson, 74716 780.2 Hospitalists M.D. Office Visit 06/17/2008 4:00p DO Not Use Jodi Martinez M.D., 46164 719.41 [employer] FACP 782.3 Office Visit 06/14/2008 3:30p DO Not Use RadAme jenkins, 40270 719.42 [employer] [place] M.D. 300.00 Office Visit 06/06/2008 10:15a DO Not Use RadAme jenkins, 89095 782.3 [employer] [place] M.D. 300.00 Office Visit 05/24/2008 4:15p DO Not Use [employer] Lisa Stoner, 93270 461.9 N.P. 719.42 719.41 401.1 Office Visit 01/17/2008 1:30p DO Not Use RadAme jenkins, 41982 461.9 [employer] [place] M.D. Office Visit 12/27/2007 10:15a DO Not Use RadAme jenkins, 62692 461.9 [employer] [place] M.D. 401.1 780.52 Office Visit 08/28/2007 10:45a DO Not Use RadAme jenkins, 02431 780.52 [employer] [place] M.D. Office Visit 08/01/2007 11:30a DO Not Use RadAme jenkins, 86485 780.52 [employer] [place] M.D. 311 Office Visit 07/19/2007 11:30a DO Not Use Ame Torres, 08426 786.50 [employer] [place] M.D. 311 Office Visit 04/26/2007 10:45a DO Not Use RadAme jenkins, 25170 719.46 [employer] [place] M.D. 722.52 722.4 272.4 401.1 V06.1 Office Visit 03/20/2007 11:30a DO Not Use Ame Torres, 29154 466.0 [employer] [place] M.D. 461.9 493.92 Office Visit 02/27/2007 9:30a DO Not Use RadAme jenkins, 19415 272.0 [employer] [place] M.D. 401.1 959.7 Office Visit 01/13/2007 11:30a DO Not Use [employer] [place] Jodi Martinez, 92396 380.10 M.D., FACP 466.0 Office Visit 12/28/2006 3:45p DO Not Use RadomsAme pichardo, 80340 461.9 [employer] [place] M.D. 380.10 Office Visit 12/08/2006 1:30p [facility]surgery Services Christiano Ugarte, 53332 338.29 Of [employer] M.D. Office Visit 11/24/2006 3:15p DO Not Use RadomsKenya pichardoa, 24164 724.2 [employer] [place] M.D. 461.9 Office Visit 11/09/2006 1:45p DO Not Use RadAme jenkins, 39395 724.2 [employer] [place] M.D. 724.4 788.41 Office Visit 11/04/2006 3:45p DO Not Use RadAme jenkins, 48355 729.5 [employer] [place] M.D. 786.50 Office Visit 07/27/2006 9:30a DO Not Use RadomsAme pichardo, 93248 401.1 [employer] [place] M.D. 272.0 253.1 Office Visit 04/25/2006 11:15a DO Not Use RadAme jenkins, 61238 401.1 [employer] [place] M.D. 722.4 311 300.00 Office Visit 02/23/2006 10:15a DO Not Use RadAme jenkins, 87852 461.9 [employer] [place] M.D. 401.1 786.50 Office Visit 01/13/2006 1:15p DO Not Use RadomsAme pichardo, 80431 401.1 [employer] [place] M.D. 300.00 311 Office Visit 12/15/2005 11:15a DO Not Use RadAme jenkins, 25121 401.1 [employer] [place] M.D. Office Visit 11/03/2005 11:45a DO Not Use RadAme jenkins, 45299 461.9 [employer] [place] M.D. Plan of Care Future Appointment(s):09/12/2017 11:30 am - Mireya Casillas N.P. at [facility]09/13/2017 11:15 am - Brock Johnston MD at [facility].08/11/2017 - Melania Morfin MDJ44.1 Chronic obstructive pulmonary disease w (acute) exacerbationNew Medication:Doxycycline Monohydrate 100 mgPrednisone 10 mgNew Labs:CBC Auto DiffC Reactive ProteinNew Xrays:Chest PA & Lat 2 VWSFollow up:2 diavwF59.210 Nicotine dependence, cigarettes, zbbwzaomsapsuN76.02 Hypoxemia
[2017-08-21] MEDS ORDERED: Levofloxacin 750 MG IVPREMIX(* 750 MG/150 ML BAG IVPB ONE (22:51)
[2017-08-21] MEDS ORDERED: Magnesium Sulfate IV* 2 GM in NS 0.9% 100 ML* 100 ML IVPB ONE (23:00)
[2017-08-21 23:43] LABS: INR 0.78 (0.77-1.02)
[2017-08-21 23:45] LABS: ABS Basophils 0 10^3/ul (0-0.2); ABS Eosinophils 0 10^3/ul (0-0.6); ABS Lymphocytes 3.3 10^3/ul (1.0-4.8); ABS Monocytes 1.2 10^3/ul (0-0.8); ABS Neutrophils 10.4 10^3/ul (1.5-7.7); ABS Nucleated RBC 0 10^3/ul; Eosinophil % 0.1 % (0-6); Hematocrit 38 % (35-47); Hemoglobin 12.7 g/dl (12.0-16.0); Lymphocyte % 22.1 % (25-47); Mean Corpuscular HGB Conc 33 g/dl (31-36); Mean Corpuscular Hemoglobin 30 pg (27-31); Mean Corpuscular Volume 90 fL (80-97); Mean Platelet Volume 7.1 um3 (7.4-10.4); Nucleated Red Blood Cells % 0; Platelet Count 301 10^3/ul (150-450); Red Blood Count 4.26 10^6/ul (4.00-5.40); Red Cell Distribution Width 14 % (10.5-15); White Blood Count 14.9 10^3/ul (3.5-10.8)
[2017-08-21 23:51] LABS: EGFR Non-African American 77.8 (>60)
[2017-08-22] MEDS ORDERED: Ketorolac INJ* 30 MG/ML 1 ML VIAL IV PUSH ONE (00:08)
[2017-08-22] MEDS: Albuterol 2.5 MG/3 ML NEB.SOL* (0.083%) INH SCH ×2 (00:12→00:23)
[2017-08-22] MEDS ORDERED: ceFUROXime 500 mg TAB(NF) 500 MG TAB PO ONE (00:58)
[2017-08-22] MEDS ORDERED: Ondansetron INJ* 2 MG/ML VIAL IV ONE (00:59)
[2017-08-22] MEDS ORDERED: ceFUROXime TAB(*) 250 MG PO ONE (01:15)
[2017-08-22 03:20] VITALS: BP 144/73
--- NOTE | 2017-08-22 03:57 | ED ---
Anthony Pack Tariq, scribed for Efren Morel MD on 08/21/17 at 2223 . HPI Chest Pain - HPI Summary HPI Summary: A 56 y/o female MONIQUE presents to ED c/o chest pain. According to the patient, the sharp chest pain started around 1500. The pain has radiated to her left shoulder and left leg. Additional symptoms include cough and SOB. Currently, her chest pain is 10/10 in severity. It was noted that the patient is on oxygen at home. The patient stated that the sharp pain has been present for a couple months, but it has not been as bad as it is today. PMHx of COPD. EMS gave Albuterol x2. SHx of smoking, however, is trying to quit. - History of Current Complaint Chief Complaint: EDChestPainROMI Time Seen by Provider: 08/21/17 21:57 Hx Obtained From: Patient Hx Last Menstrual Period: MENOPAUSE Onset/Duration: Still Present, Worse Since - Couple months ago Timing: Constant Initial Severity: Severe Current Severity: Severe Pain Intensity: 10 Pain Scale Used: 0-10 Numeric Chest Pain Radiates: Yes Chest Pain Radiates To:: Shoulder - Left, Other - Left leg Character: Sharp/Stabbing Aggravating Factor(s): Nothing Alleviating Factor(s): Nothing Associated Signs and Symptoms: Positive: Chest Pain, Shortness of Breath, Cough - Additional Pertinent History Primary Care Physician: [id number] - Allergy/Home Medications Allergies/Adverse Reactions: Allergies Allergy/AdvReac Type Severity Reaction Status Date / Time azithromycin Allergy Diarrhea Verified 08/22/17 00:59 codeine Allergy Difficulty Verified 08/22/17 00:59 Breathing Penicillins Allergy Rash Verified 08/22/17 00:59 Sulfa (Sulfonamide Allergy Rash Verified 08/22/17 00:59 Antibiotics) tetracycline Allergy Rash Verified 08/22/17 00:59 levofloxacin [From Levaquin] AdvReac Unknown Verified 08/22/17 03:03 Reaction Details PMH/Surg Hx/FS Hx/Imm Hx Endocrine/Hematology History: Denies: Hx Anticoagulant Therapy, Hx Blood Disorders, Hx Diabetes Cardiovascular History: Reports: Hx Hypercholesterolemia, Hx Hypertension - ON MEDICATION Denies: Hx Congestive Heart Failure, Hx Pacemaker/ICD, Other Cardiovascular Problems/Disorders Respiratory History: Reports: Hx Asthma, Hx Chronic Obstructive Pulmonary Disease (COPD), Other Respiratory Problems/Disorders - PNEUMONIA Denies: Hx Sleep Apnea GI History: Reports: Hx Diverticulosis, Hx Gastroesophageal Reflux Disease, Hx Gastrointestinal Bleed, Hx Hiatal Hernia Denies: Other GI Disorders History: Reports: Other Problems/Disorders - UTI's in past Denies: Hx Renal Disease Musculoskeletal History: Reports: Hx Arthritis - bilateral SHOULDER Denies: Other Musculoskeletal History Sensory History: Reports: Hx Cataracts - tammy, Hx Contacts or Glasses - for reading Denies: Hx Hearing Aid Opthamlomology History: Reports: Hx Cataracts - tammy, Hx Contacts or Glasses - for reading Neurological History: Denies: Other Neuro Impairments/Disorders Psychiatric History: Reports: Hx Anxiety, Hx Depression, Hx Bipolar Disorder Denies: Hx Panic Disorder - Cancer History Hx Chemotherapy: No Hx Radiation Therapy: No - Surgical History Surgery Procedure, Year, and Place: fusion cervical spine(PART OF METAL REMOVED BUT DOES STILL HAVE METAL IN NECK),. BILATERAL SHOULDER REPAIRS 4 YRS AGO,. laparoscopy of bowel,. both elbows PINCHED NERVES REPAIRED. UTERINE POLYP REMOVED- Hx Anesthesia Reactions: No - Immunization History Date of Tetanus Vaccine: due now Date of Influenza Vaccine: utd Infectious Disease History: No Infectious Disease History: Reports: Hx of Known/Suspected MRSA - 10 yrs ago- pt states in urine Denies: Traveled Outside the [place] in Last 30 Days - Family History Known Family History: Positive: Cardiac Disease - father [place] >55 y/o, Hypertension, Respiratory Disease - COPD in mother - Social History Alcohol Use: Rare Alcohol Amount: 2 per year Substance Use Type: Reports: None Hx Tobacco Use: Yes Smoking Status (MU): Light Every Day Tobacco Smoker Type: Cigarettes Amount Used/How Often: 1/2 ppd Length of Time of Smoking/Using Tobacco: since age 17 Have You Smoked in the Last Year: Yes - "I smoked my last cigarette this morning 03/16/16" "I have patches" Review of Systems Negative: Fever Positive: Chest Pain Positive: Shortness Of Breath, Cough All Other Systems Reviewed And Are Negative: Yes Physical Exam - Summary Physical Exam Summary: VITAL SIGNS: Reviewed. GENERAL: Patient is a well-developed and nourished FEMALE who is lying comfortable in the stretcher. Patient is not in any acute respiratory distress. HEAD AND FACE: No signs of trauma. No ecchymosis, hematomas or skull depressions. No sinus tenderness. EYES: PERRLA, EOMI x 2, No injected conjunctiva, no nystagmus. EARS: Hearing grossly intact. Ear canals and tympanic membranes are within normal limits. MOUTH: Oropharynx within normal limits. NECK: Supple, trachea is midline, no adenopathy, no JVD, no carotid bruit, no c- spine tenderness, neck with full ROM. CHEST: Symmetric, no tenderness at palpation LUNGS: Decreased breathe sounds bilaterally. CVS: Regular rate and rhythm, S1 and S2 present, no murmurs or gallops appreciated. ABDOMEN: Soft, non-tender. No signs of distention. No rebound no guarding, and no masses palpated. Bowel sounds are normal. EXTREMITIES: FROM in all major joints, no edema, no cyanosis or clubbing. NEURO: Alert and oriented x 3. No acute neurological deficits. Speech is normal and follows commands. SKIN: Dry and warm Triage Information Reviewed: Yes Vital Signs On Initial Exam: Initial Vitals Temp Pulse Resp BP Pulse Ox 97.6 F 80 18 143/75 95 08/21/17 22:03 08/21/17 22:03 08/21/17 22:03 08/21/17 22:03 08/21/17 22:03 Vital Signs Reviewed: Yes Diagnostics - Vital Signs Vital Signs Temp Pulse Resp BP Pulse Ox 08/21/17 22:03 97.6 F 80 18 143/75 95 - Laboratory Lab Results: Lab Results 08/21/17 08/21/17 08/21/17 Range/Units 23:18 23:18 23:18 WBC 14.9 H (3.5-10.8) 10^3/ul RBC 4.26 (4.00-5.40) 10^6/ul Hgb 12.7 (12.0-16.0) g/dl Hct 38 (35-47) % MCV 90 (80-97) fL MCH 30 (27-31) pg MCHC 33 (31-36) g/dl RDW 14 (10.5-15) % Plt Count 301 (150-450) 10^3/ul MPV 7.1 L (7.4-10.4) um3 Neut % (Auto) 69.6 (38-83) % Lymph % (Auto) 22.1 L (25-47) % [place] % (Auto) 7.9 H (0-7) % Eos % (Auto) 0.1 (0-6) % Baso % (Auto) 0.3 (0-2) % Absolute Neuts (auto) 10.4 H (1.5-7.7) 10^3/ul Absolute Lymphs (auto) 3.3 (1.0-4.8) 10^3/ul Absolute Monos (auto) 1.2 H (0-0.8) 10^3/ul Absolute Eos (auto) 0 (0-0.6) 10^3/ul Absolute Basos (auto) 0 (0-0.2) 10^3/ul Absolute Nucleated RBC 0 10^3/ul Nucleated RBC % 0 INR (Anticoag Therapy) 0.78 (0.77-1.02) APTT 26.2 (26.0-36.3) seconds D-Dimer, Quantitative < 200 (Less Than 230) ng/mL Sodium 136 (135-145) mmol/L Potassium 3.9 (3.5-5.0) mmol/L Chloride 102 (101-111) mmol/L Carbon Dioxide 29 (22-32) mmol/L Anion Gap 5 (2-11) mmol/L BUN 21 (6-24) mg/dL Creatinine 0.77 (0.51-0.95) mg/dL Est GFR ( Amer) 94.2 (>60) Est GFR (Non-Af Amer) 77.8 (>60) BUN/Creatinine Ratio 27.3 H (8-20) Glucose 149 H (70-100) mg/dL Lactic Acid (0.5-2.0) mmol/L Calcium 9.5 (8.6-10.3) mg/dL Magnesium 2.5 (1.9-2.7) mg/dL Total Bilirubin 0.20 (0.2-1.0) mg/dL AST 15 (13-39) U/L ALT 18 (7-52) U/L Alkaline Phosphatase 76 (34-104) U/L Troponin I 0.00 (<0.04) ng/mL Total Protein 6.7 (6.4-8.9) g/dL Albumin 3.8 (3.2-5.2) g/dL Globulin 2.9 (2-4) g/dL Albumin/Globulin Ratio 1.3 (1-3) 08/21/17 Range/Units 23:18 WBC (3.5-10.8) 10^3/ul RBC (4.00-5.40) 10^6/ul Hgb (12.0-16.0) g/dl Hct (35-47) % MCV (80-97) fL MCH (27-31) pg MCHC (31-36) g/dl RDW (10.5-15) % Plt Count (150-450) 10^3/ul MPV (7.4-10.4) um3 Neut % (Auto) (38-83) % Lymph % (Auto) (25-47) % [place] % (Auto) (0-7) % Eos % (Auto) (0-6) % Baso % (Auto) (0-2) % Absolute Neuts (auto) (1.5-7.7) 10^3/ul Absolute Lymphs (auto) (1.0-4.8) 10^3/ul Absolute Monos (auto) (0-0.8) 10^3/ul Absolute Eos (auto) (0-0.6) 10^3/ul Absolute Basos (auto) (0-0.2) 10^3/ul Absolute Nucleated RBC 10^3/ul Nucleated RBC % INR (Anticoag Therapy) (0.77-1.02) APTT (26.0-36.3) seconds D-Dimer, Quantitative (Less Than 230) ng/mL Sodium (135-145) mmol/L Potassium (3.5-5.0) mmol/L Chloride (101-111) mmol/L Carbon Dioxide (22-32) mmol/L Anion Gap (2-11) mmol/L BUN (6-24) mg/dL Creatinine (0.51-0.95) mg/dL Est GFR ( Amer) (>60) Est GFR (Non-Af Amer) (>60) BUN/Creatinine Ratio (8-20) Glucose (70-100) mg/dL Lactic Acid 1.3 (0.5-2.0) mmol/L Calcium (8.6-10.3) mg/dL Magnesium (1.9-2.7) mg/dL Total Bilirubin (0.2-1.0) mg/dL AST (13-39) U/L ALT (7-52) U/L Alkaline Phosphatase (34-104) U/L Troponin I (<0.04) ng/mL Total Protein (6.4-8.9) g/dL Albumin (3.2-5.2) g/dL Globulin (2-4) g/dL Albumin/Globulin Ratio (1-3) Result Diagrams: 08/21/17 23:18 08/21/17 23:18 Lab Statement: Any lab studies that have been ordered have been reviewed, and results considered in the medical decision making process. - Radiology CXR Radiology Interpretation Completed By: ED Physician - RIGHT LOWER LOBE INFILTRATE. Pending official report - EKG 9605 Cardiac Rate: NL - 89 BPM EKG Rhythm: Sinus Rhythm EKG Interpretation: Right Bundle Branch Block Re-Evaluation - Re-Evaluation First Eval Re-Evaluation Time: 00:29 Comment: DISCUSSED RESULTS AND DISCHARGE WITH PATIENT. Chest Pain Course/Dx - Course Course Of Treatment: A 56 y/o female MONIQUE presents to ED c/o chest pain. According to the patient, the sharp chest pain started around 1500. The pain has radiated to her left shoulder and left leg. Additional symptoms include cough and SOB. Currently, her chest pain is 10/10 in severity. It was noted that the patient is on oxygen at home. The patient stated that the sharp pain has been present for a couple months, but it has not been as bad as it is today. A CXR reveals right lower lobe infiltrate. A EKG reveals a rate of 89 BPM , normal rhythm and right bundle branch block. In the ED course, patient was given Albuterol, Toradol, Levaquin, Magnesium Sulfate in Sodium Chloride, Methylprednisolone . Patient stated that Levaquin makes her nauseous , Levaquin stopped. Patient was given Ceftin by mouth. Patient will be discharged with a diagnosis of COPD and pneumonia. Patient was prescribed Ceftin and prednisone. Pt is agreeable with this plan. - Diagnoses Provider Diagnoses: COPD (chronic obstructive pulmonary disease), Pneumonia Discharge - Sign-Out/Discharge Documenting (check all that apply): Discharge/Admit/Transfer - DISCHARGE - Discharge Plan Condition: Stable Disposition: HOME Prescriptions: ceFUROXime TAB(*) [Ceftin TAB 250 MG(*)] 500 mg PO BID 10 Days tab ceFUROXime TAB(*) [Ceftin TAB 250 MG(*)] 500 mg PO BID #40 tab predniSONE TAB* [Deltasone 20 MG TAB*] 40 mg PO DAILY #10 tab Patient Education Materials: Viral Pneumonia (ED), COPD (Chronic Obstructive Pulmonary Disease) (ED) Referrals: Yovana Montoya MD [Primary Care Provider] - 2 Days (FOLLOW UP WITH PRIMARY CARE PHYSICIAN IN 1-2 DAYS.) Additional Instructions: RETURN TO ED FOR ANY NEW OR WORSENING SYMPTOMS. - Billing Disposition and Condition Condition: STABLE Disposition: Home The documentation as recorded by the Anthony hagan Tariq accurately reflects the service I personally performed and the decisions made by , Efren Morel MD.
--- NOTE | 2017-08-22 07:34 | RAD ---
INDICATION: Shortness of breath. COMPARISON: Comparison is made with a prior study from August 11, 2017. TECHNIQUE: A portable view of the chest was obtained. FINDINGS: Cardiac and mediastinal contours appear to be within normal limits. The lungs are underinflated. There is a small infiltrate at the medial right lung base. No pleural effusion is seen. IMPRESSION: SMALL RIGHT BASILAR INFILTRATE. NO DISCREPANCY
== END 2017-08-22 03:30 | disposition home or self-care (01) ==
LOC: ED 21:52
DX: J18.9 Pneumonia, unspecified organism (principal); J44.9 Chronic obstructive pulmonary disease, unspecified; R07.9 Chest pain, unspecified; I45.10 Unspecified right bundle-branch block; I10 Essential (primary) hypertension; F17.210 Nicotine dependence, cigarettes, uncomplicated; Z99.81 Dependence on supplemental oxygen; Z79.899 Other long term (current) drug therapy; Z82.49 Family history of ischemic heart disease and other diseases of the circulatory system; Z88.3 Allergy status to other anti-infective agents; Z88.5 Allergy status to narcotic agent; Z88.0 Allergy status to penicillin; Z88.2 Allergy status to sulfonamides
CPT/HCPCS: 36415; 71045; 80053; 83605; 83735; 84484; 85025; 85379; 85610; 85730; 87040; 93005; 96374; 96375; 99285; J1885; J2405; J2930; J3475

== ENCOUNTER 2017-10-28 18:12 | Emergency (ER) | payer MEDICARE, MEDICAID ==
--- NOTE | 2017-10-28 18:25 | UC ---
Respiratory Complaint HPI - HPI Summary HPI Summary: 56 yo female presents with sinus pain/pressure/congestion, sore throat, and cough for the last 5 days. She tells me that her symptoms began with sinus symptoms with a sore throat. Since that time has developed a dry cough and feels tightness in her chest when she breathes. Has not been taking anything OTC. Denies fever, chills, SOB, chest pain, n/v. Hx of COPD. - History of Current Complaint Chief Complaint: UCRespiratory Stated Complaint: URI Time Seen by Provider: 10/28/17 18:24 Hx Obtained From: Patient Hx Last Menstrual Period: MENOPAUSE Onset/Duration: Gradual Onset Severity Initially: Moderate Severity Currently: Moderate Pain Intensity: 7 Pain Scale Used: 0-10 Numeric Character: Cough: Nonproductive - Allergies/Home Medications Allergies/Adverse Reactions: Allergies Allergy/AdvReac Type Severity Reaction Status Date / Time azithromycin Allergy Diarrhea Verified 10/28/17 18:24 codeine Allergy Difficulty Verified 10/28/17 18:24 Breathing Penicillins Allergy Rash Verified 10/28/17 18:24 Sulfa (Sulfonamide Allergy Rash Verified 10/28/17 18:24 Antibiotics) tetracycline Allergy Rash Verified 10/28/17 18:24 levofloxacin [From Levaquin] AdvReac Unknown Verified 10/28/17 18:24 Reaction Details Bees Allergy Anaphylatic Uncoded 09/21/17 14:25 Shock PMH/Surg Hx/FS Hx/Imm Hx - Additional Past Medical History Additional PMH: Chronic pain Endocrine History: Dyslipidemia Cardiovascular History: Hypertension Respiratory History: COPD Psychological History: Bipolar Disorder Other History Of: Negative For: Anticoagulant Therapy - Surgical History Surgical History: Yes Surgery Procedure, Year, and Place: fusion cervical spine(PART OF METAL REMOVED BUT DOES STILL HAVE METAL IN NECK),. BILATERAL SHOULDER REPAIRS 4 YRS AGO,. laparoscopy of bowel,. both elbows PINCHED NERVES REPAIRED. UTERINE POLYP REMOVED- - Family History Known Family History: Positive: Cardiac Disease - father [place] >55 y/o, Hypertension, Respiratory Disease - COPD in mother - Social History Lives: With Family Alcohol Use: None Alcohol Amount: 2 per year Substance Use Type: None Smoking Status (MU): Light Every Day Tobacco Smoker Type: Cigarettes Amount Used/How Often: 5 cigarettes/day Length of Time of Smoking/Using Tobacco: since age 17 Have You Smoked in the Last Year: Yes - "I smoked my last cigarette this morning 03/16/16" "I have patches" Household Exposure Type: Cigarettes - Immunization History Most Recent Influenza Vaccination: 11/2015 Most Recent Tetanus Shot: last 10 years Most Recent Pneumonia Vaccination: none Review of Systems Constitutional: Negative Skin: Negative Eyes: Negative ENT: Sore Throat, Nasal Discharge, Sinus Congestion, Sinus Pain/Tenderness Respiratory: Cough Cardiovascular: Negative Gastrointestinal: Negative Neurological: Negative Psychological: Negative All Other Systems Reviewed And Are Negative: Yes Physical Exam - Summary Physical Exam Summary: GENERAL: NAD. WDWN. No pain distress. SKIN: No rashes, sores, lesions, or open wounds. HEENT: Head: AT/NC Eyes: Conjunctiva clear without inflammation or discharge. Ears: Hearing grossly normal. TMs intact, no bulging, erythema, or edema. Nose: Nasal mucosa pink and moist without erythema or edema. TTP maxillary and frontal sinus. Throat: Posterior oropharynx without exudates, erythema, or tonsillar enlargement. Uvula midline. NECK: Supple. Nontender. No lymphadenopathy. CHEST: Decreased and distant breath sounds throughout. No r/r appreciated. No accessory muscle use. Breathing comfortably and in no distress. CV: RRR. Without m/r/g. Pulses intact. Cap refill <2seconds NEURO: Alert. PSYCH: Age appropriate behavior. Triage Information Reviewed: Yes Vital Signs: Initial Vital Signs Temp 98.5 F 10/28/17 18:18 Pulse 80 10/28/17 18:18 Resp 18 10/28/17 18:18 BP 136/57 10/28/17 18:18 Pulse Ox 94 10/28/17 18:18 Vital Signs Reviewed: Yes Diagnostic Evaluation - Laboratory O2 Sat by Pulse Oximetry: 94 Respiratory Course/Dx - Course Course Of Treatment: CXR: IMPRESSION: SMALL RIGHT BASILAR INFILTRATE. Pt states that the only antibiotics she can take without reaction are Ceclor and Biaxin. Therefore will rx Biaxin and have her f/u with her PCP for recheck - Differential Dx/Diagnosis Provider Diagnoses: RLL PNA Discharge - Sign-Out/Discharge Documenting (check all that apply): Patient Departure All imaging exams completed and their final reports reviewed: No - Discharge Plan Condition: Stable Disposition: HOME Prescriptions: Clarithromycin TAB* [Biaxin 250 MG TAB*] 250 mg PO BID #20 tab Patient Education Materials: Sinusitis (ED), Acute Cough (ED) Referrals: Yovana Montoya MD [Primary Care Provider] - 1 Week Additional Instructions: If you develop a fever, shortness of breath, chest pain, new or worsening symptoms - please call your PCP or go to the ED. 1) Please schedule a follow up appointment with your PCP in 1-2weeks for a recheck - Billing Disposition and Condition Condition: STABLE Disposition: Home
[2017-10-28 18:30] VITALS: BP 136/57
[2017-10-28] MEDS ORDERED: Albuterol/Ipratropium NEB.SOL* Albuterol 2.5 MG/Ipratropium 0.5 MG 3 ML INH ONE (18:37)
--- NOTE | 2017-10-28 19:04 | RAD ---
INDICATION: Cough. COMPARISON: Comparison is made with a prior chest x-ray study from August 11, 2017. TECHNIQUE: Dual-energy PA and lateral views of the chest were obtained. FINDINGS: The heart is within normal limits in size. Mediastinal and hilar contours appear within normal limits. There is a small infiltrate at the medial right lung base which appears new. No pleural effusion is seen. IMPRESSION: SMALL RIGHT BASILAR INFILTRATE.
--- NOTE | 2017-10-31 10:52 | UC ---
Discharge - Sign-Out/Discharge Documenting (check all that apply): Post-Discharge Follow Up All imaging exams completed and their final reports reviewed: Yes - Discharge Plan Condition: Stable Disposition: HOME Prescriptions: Clarithromycin TAB* [Biaxin 250 MG TAB*] 250 mg PO BID #20 tab Patient Education Materials: Sinusitis (ED), Acute Cough (ED) Referrals: Yovana Montoya MD [Primary Care Provider] - 1 Week Additional Instructions: If you develop a fever, shortness of breath, chest pain, new or worsening symptoms - please call your PCP or go to the ED. 1) Please schedule a follow up appointment with your PCP in 1-2weeks for a recheck - Billing Disposition and Condition Condition: STABLE Disposition: Home
== END 2017-10-28 19:23 | disposition home or self-care (01) ==
LOC: UCEAST 18:12
DX: J18.9 Pneumonia, unspecified organism (principal); J44.9 Chronic obstructive pulmonary disease, unspecified; F17.210 Nicotine dependence, cigarettes, uncomplicated; Z88.3 Allergy status to other anti-infective agents; Z88.0 Allergy status to penicillin; Z88.2 Allergy status to sulfonamides; Z88.5 Allergy status to narcotic agent
CPT/HCPCS: 71046; 99212; A9270-GY; G0463

== ENCOUNTER 2018-04-25 13:26 | Emergency (ER) | payer MEDICARE, MEDICAID ==
--- OUTSIDE RECORDS SUMMARY | 2018-04-25 13:38 | XMS REPORT | Continuity of Care Document ---
:1960 External Reference #:[id number] Author Name Jolie Canseco Care Team Providers Name Role Phone Yovana Montoya MD Primary Care Physician Unavailable Payers Date Identification Numbers Payment Provider Subscriber Policy Number: [id number] Medicare Kat Umanzor PayID: [id number] [address] [place] [address] Effective: 2000 Policy Number: [id number] Medicare Kat Umanzor Expires: 2017 PayID: [id number] [address] [place] [address] Policy Number: [id number] Medicaid Kat Umanzor Group Name: 1 1 [address] PayID: [id number] [place] [address] Advance Directives Description No Information Available Problems Date Description Provider Status Onset: 10/29/2014 Dyspnea Melania Morfin MD Active Onset: 10/29/2014 Chronic obstructive lung disease Melania Morfin MD Active Onset: 10/29/2014 Tobacco user Melania Morfin MD Active Onset: 10/29/2014 Sleep disorder Melania Morfin MD Active Onset: 01/20/2015 Neck pain Eugenio Villegas M.D. 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 Active myelopathy Onset: 11/16/2017 Closed fracture of phalanx of foot Gus Godinez MD Active Family History Date Family Member(s) Observation Comments General Heart Disease Father Lung Cancer Father Emphysema Father Heart Disease Mother due to at age 67 COPD () Siblings 3 Siblings 1 Brother COPD , Others Healthy Social History Type Date Description Comments Sex Unknown Lives With Son Occupation Disabled Tobacco Use Start: Unknown Currently smokes 1-5 Cigarettes Daily Smokeless Tobacco Never Used Smokeless Tobacco ETOH Use Occasionally consumes alcohol Recreational Drug Use Denies Drug Use Tobacco Use Start: Unknown Light tobacco smoker (10 or 3 per day fewer cigarettes/day) Smoking Used to smoke 1 pack per day prior to this past year. Tobacco Use Start: Unknown Patient is getting ready to quit smoking Smoking Status Reviewed: 04/05/18 Patient is getting ready to quit smoking Exercise Type/Frequency Does not exercise Allergies, Adverse Reactions, Alerts Date Description Reaction Status Severity Comments 11/02/2011 Sulfa Active 10/29/2014 Codeine Active 10/29/2014 Levofloxacin Active 10/29/2014 Penicillin Active 10/29/2014 Sulfa Antibiotics Active 10/29/2014 Tetracycline Active 10/29/2014 Zithromax Active 10/29/2014 Buspirone Active 10/29/2014 Tetracycline Active 08/11/2017 Bee Sting Anaphylaxis Active Severe Medications Medication Date Status Form Strength Qnty SIG Indications Ordering Provider Fco Ovalle 12/26/ Active Aerosol 200-25mcg/ 60unit inhale 1 puff Melania 2018 Inh s by mouth once MD Shelbie daily Voltaren 07/12/ Active Gel 1% 900gm apply 4 gm to M25.561 Brock F 2018 the affected Vickie, area 4 times a MD day as needed for pain Oxygen 10/27/ Active Misc 1units please use o2 J44.9 Melania 2016 at 2l/min with MD Shelbie exertion. pls provide pt with simply mini portable concentrator R09.02 Incruse Ellipta 10/08/2016 Active Aerosol 62.5mcg/Inh 30units inhale one Melania puff by Shelbie, mouth every MD day Besolate 09/21/2016 Active 2mg bid Melania MD Shelbie Albuterol 06/24/2015 Active Nebulizer (2.5mg/3ML) 4units 1 unit nebl Melania Sulfate 0.083% every 6 Shelbie, hours as MD needed Epipen 2-Kai 10/28/2014 Active Solution 0.3mg/0.3ML use as Unknown Auto-Injec directed t Oxycodone HCL 10/28/2014 Active Tablets 10mg 1 [...] mouth Unknown every night at bedtime Sertraline HCL 10/28/2014 Active Tablets 200mg 1 by mouth Unknown every day Ventolin HFA Active Aerosol 108(90Base) 2 puffs by Unknown mcg/Act mouth four times a day as needed Baclofen Active Tablets 10mg take 1/2 Unknown tab every tid Detrol LA Active Caps ER 4mg take one Unknown 24HR capsule by mouth every hs Mirtazapine Active Tablets 7.5mg one tab at Unknown hs Latuda Active Tablets 40mg 1 by mouth Unknown every, day after dinner Embeda Active Capsules 20-0.8mg 1 by mouth Unknown ER every day Clarithromycin 02/20/2018 - Hx Tablets ER 500mg 7tabs 1 tab daily Cinthia Velázquez ER 03/20/2018 24HR 4 Sheblie, 4 MD . 9 Cogentin 08/11/2017 - Hx Solution 1mg/ml 1 mg by Melania 11/20/2017 mouth two Shelbie, times per MD day Doxycycline 08/11/2017 - Hx Capsules 100mg 14caps 1 tablet by Cinthia Velázquez Monohydrate 11/20/2017 mouth every 4 Shelbie, 12 hours 4 MD . 1 Prednisone 08/11/2017 - Hx Tablets 10mg 30tabs 30mg daily Cinthia Velázquez 11/20/2017 for 1 week, 4 Shelbie, 20mg daily 4 MD for 1 week, . 10 mg daily 1 for 1 week Chantix Starting 05/11/2017 - Hx Tablets 0.5mg X 11 & 53tabs take 0.5 mg Dayna Christian Kai 11/20/2017 1 mg X 42 tab days 1 Shelbie, 1-3, 0.5 mg 7 MD twice daily . days 4-7, 2 day 8 to 1 end of pack 0 take 1 mg twice daily Spiriva Respimat 05/05/2015 - Hx Aerosol 2.5mcg/Act 4gm 2 puffs Emlania 05/06/2015 every day MD Shelbie Incruse Ellipta 05/05/2015 - Hx Aerosol 62.5mcg/Inh 30units 1 Melania 09/20/2016 inhalation Shelbie, once daily Symbico 01/20/2015 - Hx Aerosol 80-4.5mcg/Ac 3units 2 puff J Melania 09/20/2016 t twice a day 4 Shelbie, Renan ROBERTSON . 9 R06.02 Rupa Pressair 01/20/2015 - Hx Aerosol 400mcg/Act 2units 1 puff Melania 05/06/2015 puff Shelbie, twice a MD day Cogentin 10/29/2014 - [...] Hx Capsules 20mg 1 by Unknown 09/20/2016 mouth every day Vesicare 10/28/2014 - Hx [...] 09/20/2016 po q4-6 Young, prn pain M.D. Geodon - Hx 1 tab qhs Unknown 11/20/2017 Cefdinir - Hx Capsules 300mg take 1 [...] Form Strength Qnty SIG Indications Ordering Provider Dexamethasone 07/12/ Administered Injection Brock F Sodium 2018 Oniel Johnston, 1 MG Depomedrol 40MG 04/07/ Administered Injection Brock F 2017 MD Vickie Depomedrol 80MG 04/06/ Administered Injection Kerry 2013 Keya Raymond Depomedrol 80MG 11/11/ Administered Injection Eliu 2011 Keya Busch Depomedrol 80MG 09/01/ Administered Injection Eliu 2011 [place]a Busch Depomedrol 40MG 09/01/ Administered Injection Eliu 2011 [place]a Busch Depomedrol 80MG 01/14/ Administered Injection Eliu 2010 [place]a Busch Depomedrol 40MG 01/14/ Administered Injection Eliu 2010 [place]a Busch Depomedrol 80MG 12/02/ Administered Injection Eliu 2010 [place] Busch Depomedrol 80MG 11/04/ Administered Injection Eliu 2010 [place] Busch Immunizations CPT Code Status Date Vaccine Lot # [id number] Given 01/24/2008 Influenza Virus 3Yrs & Over 38926 Given 01/24/2008 Influenza Virus 3Yrs & Over 38815 Given 04/26/2007 Tdap - Tetanus/Diptheria/Acellular Pertussis 38726 Given 12/06/2006 Influenza Virus 3Yrs & Over 38301 Given 12/03/2005 Influenza Virus 3Yrs & Over Vital Signs Date Vital Result Comment 04/05/2018 11:32am Height 60 inches 5'0" Heart Rate 80 /min BP Systolic 122 mmHg BP Diastolic 78 mmHg Body Temperature 98.2 F Pain Level 5 03/21/2018 9:33am Height 60 inches 5'0" Weight 186.00 lb Heart Rate 81 /min BP Systolic Sitting 118 mmHg BP Diastolic Sitting 82 mmHg O2 % BldC Oximetry 92 % 2L BMI (Body Mass Index) 36.3 kg/m2 03/02/2018 10:06am Height 60 inches 5'0" Heart Rate 84 /min BP Systolic 140 mmHg BP Diastolic 78 mmHg Respiratory Rate 19 /min Pain Level 5 02/20/2018 12:44pm Height 60 inches 5'0" Weight 183.25 lb Heart Rate 88 /min BP Systolic Sitting 130 mmHg Lue regular cuff BP Diastolic Sitting 80 mmHg Lue regular cuff Respiratory Rate 12 /min O2 % BldC Oximetry 93 % 2LPM BMI (Body Mass Index) 35.8 kg/m2 01/26/2018 10:34am Height 60 inches 5'0" Weight 173.00 lb Heart Rate 102 /min BP Systolic 140 mmHg BP Diastolic 72 mmHg Respiratory Rate 22 /min Body Temperature 97.2 F Pain Level 9 BMI (Body Mass Index) 33.8 kg/m2 12/28/2017 1:56pm Height 60 inches 5'0" Weight 170.00 lb BP Systolic 134 mmHg BP Diastolic 84 mmHg Body Temperature 97.6 F BMI (Body Mass Index) 33.2 kg/m2 11/21/2017 10:42am Height 60 inches 5'0" Weight 177.00 lb Heart Rate 76 /min BP Systolic Sitting 122 mmHg BP Diastolic Sitting 80 mmHg Respiratory Rate 14 /min O2 % BldC Oximetry 95 % 2 L pules BMI (Body Mass Index) 34.6 kg/m2 11/16/2017 1:44pm Weight 174.00 lb Heart Rate 88 /min BP Systolic 136 mmHg BP Diastolic 74 mmHg Respiratory Rate 16 /min Body Temperature 98.0 F Pain Level 7 08/11/2017 11:15am Height 60 inches 5'0" Weight 158.38 lb Heart Rate 76 /min BP Systolic Sitting 152 mmHg Lue reg cuff BP Diastolic Sitting 92 mmHg Lue reg cuff Respiratory Rate 20 /min O2 % BldC Oximetry 93 % On 2L O2 BMI (Body Mass Index) 30.9 kg/m2 07/12/2017 1:26pm Height 60 inches 5'0" Heart Rate 75 /min BP Systolic 124 mmHg BP Diastolic 84 mmHg Respiratory Rate 16 /min Body Temperature 98.0 F Pain Level 8 05/12/2017 10:59am Height 60 inches 5'0" Heart Rate 94 /min BP Systolic 136 mmHg BP Diastolic 90 mmHg Respiratory Rate 16 /min Body Temperature 98.0 F Pain Level 5 05/11/2017 10:15am Height 60 inches 5'0" Weight 160.00 lb Heart Rate 80 /min BP Systolic Sitting 132 mmHg BP Diastolic Sitting 78 mmHg Respiratory Rate 14 /min O2 % BldC Oximetry 95 % on 2L BMI (Body Mass Index) 31.2 kg/m2 04/07/2017 1:47pm Height 60 inches 5'0" Weight 164.00 lb Heart Rate 97 /min Respiratory Rate 16 /min Body Temperature 97.6 F Pain Level 9 BMI (Body Mass Index) 32.0 kg/m2 12/30/2016 10:06am Height 60 inches 5'0" Weight 165.00 lb w/ shoes Heart Rate 90 /min reg BP Systolic Sitting 114 mmHg Lue, reg cuff BP Diastolic Sitting 70 mmHg Lue, reg cuff Respiratory Rate 16 /min Pain Level 7 right clavicle BMI (Body Mass Index) 32.2 kg/m2 11/11/2016 10:03am Height 60 inches 5'0" Weight 160.00 lb w/ shoes Heart Rate 70 /min reg BP Systolic Sitting 124 mmHg Rue, reg cuff BP Diastolic Sitting 84 mmHg Rue, reg cuff Respiratory Rate 16 /min O2 % BldC Oximetry 91 % on Ra BMI (Body Mass Index) 31.2 kg/m2 11/03/2016 1:08pm Height 60 inches 5'0" Weight 160.00 lb Heart Rate 78 /min BP Systolic Sitting 134 mmHg BP Diastolic Sitting 82 mmHg Pain Level 7 BMI (Body Mass Index) 31.2 kg/m2 09/21/2016 12:33pm Height 60 inches 5'0" Weight 160.00 lb Heart Rate 76 /min BP Systolic Sitting 116 mmHg BP Diastolic Sitting 64 mmHg Respiratory Rate 14 /min O2 % BldC Oximetry 95 % BMI (Body Mass Index) 31.2 kg/m2 01/20/2015 1:28pm Height 60 inches 5'0" Weight 155.00 lb Heart Rate 82 /min BP Systolic Sitting 160 mmHg BP Diastolic Sitting 100 mmHg Pain Level 8 BMI (Body Mass Index) 30.3 kg/m2 10/29/2014 10:05am Height 60 inches 5'0" Weight 154.50 lb Heart Rate 98 /min BP Systolic 128 mmHg BP Diastolic 70 mmHg Respiratory Rate 14 /min Body Temperature 98.9 F O2 % BldC Oximetry 96 % BMI (Body Mass Index) 30.2 kg/m2 Neck Circumference in inches 15 04/06/2013 2:57pm Height 60 inches 5'0" Weight 148.00 lb Heart Rate 120 /min BMI (Body Mass Index) 28.9 kg/m2 Results Test Date Facility Test Result H/L Range Note Laboratory test 08/11/2017 [facility] C Reactive 4.98 mg/L N < 8.[address] [place] [address] [phone] CBC Auto Diff 08/11/2017 [facility] White Blood 10.0 10^3/uL N 3.5-10.[address] [place] [address] [phone] Red Blood Count 4.37 10^6/uL N 4.00-5.40 Hemoglobin 13.3 g/dL N 12.0-16.0 Hematocrit 39 % N 35-47 Mean Corpuscular Volume 88 fL N 80-97 Mean Corpuscular Hemoglobin 30 pg N 27-31 Mean Corpuscular HGB Conc 34 g/dL N 31-36 Red Cell Distribution Width 14 % N 10.5-15 Platelet Count 316 10^3/uL N 150-450 Mean Platelet Volume 6.7 um3 Low 7.4-10.4 Abs Neutrophils 6.7 10^3/uL N 1.5-7.7 Abs Lymphocytes 2.2 10^3/uL N 1.0-4.8 Abs Monocytes 0.8 10^3/uL N 0-0.8 Abs Eosinophils 0.3 10^3/uL N 0-0.6 Abs Basophils 0 10^3/uL N 0-0.2 Abs Nucleated RBC 0 10^3/uL Granulocyte % 66.8 % N 38-83 Lymphocyte % 22.2 % Low 25-47 Monocyte % 8.1 % High 0-7 Eosinophil % 2.6 % N 0-6 Basophil % 0.3 % N 0-2 Nucleated Red Blood Cells % 0 Xray 09/23/2016 [facility] CT Lung Screening-Low Dose <pending> [address] [place] [address] [phone] Procedures Date Code Description Status 03/24/2018 98016 Neuroplasty/Transposition, Ulnar Nerve AT Wrist Completed 03/24/2018 44809 Neuroplasty/Transposition, Ulnar Nerve AT Wrist Completed 01/11/2018 80435 Polysomnography Sleep Staging 4+ Parameters W/Cpap Completed 10/23/2017 46315 Polysomnography Sleep Staging 4+ Parameters Completed 07/12/2017 35093 Admin Of Inj Completed 04/07/2017 62459 Inject/Drain Joint/Bursa Major W/O US Completed 10/27/2016 03560 Pulmonary Function><Bronchodil Completed 10/27/2016 09008 Pulmonary Stress Test Simple Completed 10/27/2016 67652 Plethysmography Determination Lung Volumes & Per Airway Completed Resist 10/27/2016 63844 Diffusing Capacity Completed 02/05/2016 68987 EKG, Interpretation Only Completed 10/27/2015 03621 Treadmill Interp/Report Only Completed 10/27/2015 84134 Stress Test Supervsn W/Out I/R Completed 04/06/2013 85966 Xray Knee 3 Views Completed 04/06/2013 15806 Inject/Drain Joint/Bursa Major W/O US Completed 01/19/2012 67011 Arthroscopy Shoulder Debridement Extensive Completed 01/19/2012 16153 Arthroscopy Shoulder Debridement Extensive Completed 01/11/2012 68499 EKG, Interpretation Only Completed 11/12/2011 76631 Inject/Drain Joint/Bursa Major W/O US Completed 11/03/2011 80480 Arthroscopy,Unlisted Procedure Completed 11/03/2011 17099 Arthroscopy,Unlisted Procedure Completed 11/03/2011 29966 Arthroscopy,Shoulder Decompression Of Subacromial Space Completed W/Acromio 11/03/2011 31437 Arthroscopy,Shoulder Decompression Of Subacromial Space Completed W/Acromio 11/03/2011 77441 Arthroscopy,Shoulder,Distal Claviculectomy Incl Dist Completed Articular SR 11/03/2011 39280 Arthroscopy,Shoulder,Distal Claviculectomy Incl Dist Completed Articular SR 09/02/2011 61512 Inject/Drain Joint/Bursa Intermediate W/O US Completed 09/02/2011 32694 Inject/Drain Joint/Bursa Major W/O US Completed 08/21/2011 88529 Treadmill Interp/Report Only Completed 08/21/2011 24159 Stress Test Supervsn W/Out I/R Completed 01/14/2011 66797 Inject/Drain Joint/Bursa Intermediate W/O US Completed 12/02/2010 93346 Inject/Drain Joint/Bursa Intermediate W/O US Completed 11/04/2010 79449 Inject/Drain Joint/Bursa Major W/O US Completed 09/30/2010 34898 Rad Shoulder Comp, Min. 2 Views Completed 04/26/2007 28477 EKG Tracing & Interpretation Completed 04/26/2007 58632 EKG Tracing & Interpretation Completed Encounters Type Date Location Provider Dx Diagnosis Office Visit 03/21/2018 Pulmonology And Cinthia Gonzalez44.9 Chronic obstructive 9:30a Sleep Services Of pulmonary disease, Journeyman Lineman unspecified R09.02 Hypoxemia F17.210 Nicotine dependence, cigarettes, uncomplicated E66.09 Other obesity due to excess calories Z12.2 Encntr screen for malignant neoplasm of respiratory organs Z01.811 Encounter for preprocedural respiratory examination Office Visit 03/02/2018 Orthopedic Michelle G56.22 Lesion of ulnar 10:45a Services Of [place] Rashid nerve, left upper C.M.A. limb Office Visit 02/20/2018 Pulmonology And Cinthia Gonzalez44.9 Chronic 1:15p Sleep Services Of MD gee Journeyman Lineman pulmonary disease, unspecified R09.02 Hypoxemia F17.210 Nicotine dependence, cigarettes, uncomplicated E66.09 Other obesity due to excess calories Z12.2 Encntr screen for malignant neoplasm of respiratory organs G47.33 Obstructive sleep apnea (adult) (pediatric) Office Visit 01/26/2018 10:30a Orthopedic Michelle Rashid G56.22 Lesion of Services Of [place]ia Laura ulnar nerve, left upper limb M67.432 Ganglion, left wrist Office Visit 12/28/2017 Orthopedic Gus Godinez, S92.534A Nondisp fx of 2:15p Services Of distal phalanx C.M.A. of right lesser toe(s), init Office Visit 11/21/2017 Pulmonology And Cinthia Gonzalez44.9 Chronic 11:00a Sleep Services Of MD gerard Diallo pulmonary disease, unspecified R09.02 Hypoxemia F17.210 Nicotine dependence, cigarettes, uncomplicated G47.33 Obstructive sleep apnea (adult) (pediatric) E66.09 Other obesity due to excess calories Z12.2 Encntr screen for malignant neoplasm of respiratory organs Office Visit 11/16/2017 Roxanne Godinez, S92.534A Nondisp fx of 1:30p Services Of distal phalanx of C.M.A. right lesser toe(s), init Office Visit 08/11/2017 PulmonPoly Vicente44.1 Chronic 11:30a Sleep Services Of MD gerard Morfin Journeyman Lineman pulmonary disease w (acute) exacerbation F17.210 Nicotine dependence, cigarettes, uncomplicated R09.02 Hypoxemia R06.83 Snoring Office Visit 07/12/2017 Orthopedic Brock Mcintosh M25.561 Pain in right 1:15p Services Of MD Vickie knee C.M.A. Office Visit 05/12/2017 Orthopedic Brock Mcintosh M25.511 Pain in right 11:00a Services Of MD Vickie shoulder C.M.A. Office Visit 05/11/2017 Pulmonology And Melania J44.9 Chronic 10:45a Sleep Services Of MD Shelbie obstructive Journeyman Lineman pulmonary disease, unspecified R09.02 Hypoxemia Z01.811 Encounter for preprocedural respiratory examination F17.210 Nicotine dependence, cigarettes, uncomplicated Office Visit 04/07/2017 2:00p Orthopedic Brock Mcintosh M25.511 Pain in right Services Of MD Vickie shoulder C.M.A. M75.51 Bursitis of right shoulder Office Visit 12/30/2016 Orthopedic Brock Mcintosh M25.511 Pain in right 10:00a Services Of MD Vickie shoulder C.M.A. Office Visit 11/11/2016 Pulmonology And Melania J44.9 Chronic 10:00a Sleep Services Of MD Shelbie obstructive Journeyman Lineman pulmonary disease, unspecified R09.02 Hypoxemia F17.210 Nicotine dependence, cigarettes, uncomplicated Office Visit 11/03/2016 Neurosurgery Tim M47.812 Spondylosis w/o 1:20p Services Of Yoel Bradley M.D. myelopathy or radiculopathy, cervical region Z98.1 Arthrodesis status Office Visit 09/21/2016 12:30p Pulmonology And Melania R06.02 Shortness of Sleep Services Of MD Shelbie breath Journeyman Lineman J44.9 Chronic obstructive pulmonary disease, unspecified F17.210 Nicotine dependence, cigarettes, uncomplicated Z12.2 Encntr screen for malignant neoplasm of respiratory organs R05 Cough Office Visit 02/05/2016 11:01a [facility] Denita Lackey, R07.89 Other chest Assoc,pc M.D. pain Hospitalists J41.0 Simple chronic bronchitis F41.9 Anxiety disorder, unspecified Office Visit 02/04/2016 11:00a [facility] Denita Lackey, R07.89 Other chest Assoc,pc M.D. 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 Office Visit 10/29/2014 Pulmonology And Melania 786.05 Shortness Of 10:15a Sleep Services Of MD Shelbie Breath [facility] 496 COPD Airway Obstruction Chronic Not Class Elsewhere 305.1 Tobacco Use Disorder 307.49 Sleep Disorder Other Office Visit 10/25/2014 [facility] Luis Carlos Jesusko, 578.9 Hemorrhage 1:33p Assoctimothy M.D. Gastrointestinal Hospitalists Tract Unspec Office Visit 04/06/2013 Orthopedic Kerry 715.36 Osteoarthrosis 2:45p Services Of [place] Raymond Localzd Not Spec C.M.A. Prime Or 2Ndy Lower Leg 727.51 Cyst Synovial Popliteal Space 844.1 Sprains & Strains Knee Medial Collateral Ligament Office Visit 10/20/2012 [facility] Paul Alexenberg 557.1 Vascular 9:27a Assoctimothy II, M.D. Insufficiency Of Hospitalists Intestine Chronic 578.9 Hemorrhage Gastrointestinal Tract Unspec 296.60 Bipolar I Disorder Current Mixed NOS 305.1 Tobacco Use Disorder Office Visit 10/19/2012 [facility] Lina 557.1 Vascular 9:25a Assoctimothy M.D. Insufficiency Of Hospitalists Intestine Chronic 578.9 Hemorrhage Gastrointestinal Tract Unspec 296.60 Bipolar I Disorder Current Mixed NOS 305.1 Tobacco Use Disorder Office Visit 10/18/2012 [facility] Denita 562.11 Diverticulitis 9:25a Assoctimothy M.D. Colon W/O Hospitalists Hemorrhage 578.9 Hemorrhage Gastrointestinal Tract Unspec 296.60 Bipolar I Disorder Current Mixed NOS 305.1 Tobacco Use Disorder Office Visit 12/21/2011 10:15a Orthopedic Eliu Busch, 719.81 Joint Disorder Services Of [place] Other Spec C.M.AKamla Shoulder Region Office Visit 12/10/2011 11:15a Orthopedic Eliu Busch 726.61 Bursitis Services Of [place] Tendinitis Pes Senia Anserinus Office Visit 11/12/2011 11:30a Roxanne Busch, 716.91 Arthropathy Unspec Services Of [place] Shoulder Region Senia 726.10 Bursae & Tendon Disorders Shoulder Region Unspec 719.41 Pain Joint Shoulder Region Office Visit 09/14/2011 10:00a Roxanne Busch 726.2 Shoulder Region Services Of Adria.Kiko Laura Affections Other Not Elsewhere Class Office Visit 09/02/2011 9:15a Roxanne Busch 726.2 Shoulder Region Services Of Senia Laura Affections Other Not Elsewhere Class 716.91 Arthropathy Unspec Shoulder Region Office Visit 01/14/2011 9:00a Roxanne Busch 726.10 Bursae & Tendon Services Of Adria.Kiko Laura Disorders Shoulder Region Unspec 716.91 Arthropathy Unspec Shoulder Region Office Visit 12/02/2010 8:30a Roxanne Busch 726.10 Bursae & Tendon Services Of C.Kiko Laura Disorders Shoulder Region Unspec 716.91 Arthropathy Unspec Shoulder Region Office Visit 11/04/2010 Roxanne Busch 726.10 Bursae & Tendon 10:45a Services Of CDayna Laura Disorders Shoulder Region Unspec Office Visit 09/30/2010 Roxanne Busch 726.10 Bursae & Tendon 8:00a Services Of CDayna Laura Disorders Shoulder Region Unspec Office Visit 02/20/2009 [facility] 372.30 Conjunctivitis 3:45a Assoc,timothy Palacios M.D. Unspec Hospitalists V72.83 Examination Preoperative Other Spec [facility]ync[facility] & Assoc,timothy Thomson M.D. Collapse Hospitalists Office Visit 06/26/2008 2:15a [facility] Jewel 780.2 Syncope & Assoc,timothy Thomson M.D. Collapse Hospitalists Office Visit 06/25/2008 3:30a [facility] Jewel 780.2 Syncope & Assoc,timothy Thomson M.D. Collapse Hospitalists Office Visit 06/17/2008 4:00p DO Not Use Jodijessica Martinez, 719.41 Pain Joint [employer] M.DKamla, FACP Shoulder Region 782.3 Edema Office Visit 06/14/2008 3:30p DO Not Use Ame Torres, 719.42 Pain Joint [employer] M.D. Upper Arm 300.00 Anxiety State Unspec Office Visit 06/06/2008 10:15a DO Not Use Ame Torres, 782.3 Edema [employer]ne[employer] M.D. 300.00 Anxiety State Unspec Office Visit 05/24/2008 4:15p DO Not Use Lisa Varn, 461.9 Sinusitis Acute [employer]ne[employer] N.P. Unspec 719.42 Pain Joint Upper Arm 719.41 Pain Joint Shoulder Region 401.1 Hypertension Benign Office Visit 01/17/2008 1:30p DO Not Use Brian 461.9 Sinusitis Acute Arvind Mccloud M.D. Unspec Office Visit 12/27/2007 10:15a DO Not Use Brian 461.9 Sinusitis Acute Yoel-Sole Mccloud M.D. Unspec 401.1 Hypertension Benign 780.52 Insomnia Unspecified Office Visit 08/28/2007 DO Not Use Brian 780.52 Insomnia 10:45a Arvind Mccloud M.D. Unspecified Office Visit 08/01/2007 DO Not Use Brian 780.52 Insomnia 11:30a Arvind Mccloud M.D. Unspecified 311 Depressive Disorder Not Elsewhere Spec Office Visit 07/19/2007 11:30a DO Not Use Ame Torres, 786.50 Pain Chest Arvind Laura Unspec 311 Depressive Disorder Not Elsewhere Spec Office Visit 04/26/2007 10:45a DO Not Use Ame Torres 719.46 Pain Joint Yoel-Sole BonillaDKamla Lower Leg 722.52 Intervertebral Disc Degeneration Lumbar 722.4 Intervertebral Disc Degeneration Cervical 272.4 Hyperlipidemia Other Unspec 401.1 Hypertension Benign V06.1 Uiuomyuapv-Siackvk-Jybwzbcv Combined (DTaP) Office Visit 03/20/2007 DO Not Use Radalice, 466.0 Bronchitis Acute 11:30a Arvind Mccloud M.D. 461.9 Sinusitis Acute Unspec 493.92 Asthma Unspec W/ Acute Exacerbation Office 02/27/2007 DO Not Use Radalice, 272.0 Hypercholesterolemia Visit 9:30a Arvind Mccloud M.D. Pure 401.1 Hypertension Benign 959.7 Injury Knee Leg Ankle & Foot Other & Unspec Office Visit 01/13/2007 11:30a DO Not Use Jodi Michelle, 380.10 Otitis Externa Arvind Laura, FACP Infective Unspec 466.0 Bronchitis Acute Office Visit 12/28/2006 3:45p DO Not Use Prince Torres1.9 Sinusitis Acute Arvind Mccloud M.D. Unspec 380.10 Otitis Externa Infective Unspec Office Visit 12/08/2006 1:30p Neurosurgery Christiano Bonilla 338.29 Other Chronic Services Of Yoel Ugarte M.D. Pain Office Visit 11/24/2006 3:15p DO Not Use Marcie Torres4.2 Lumbago Arvind Mccloud M.D. 461.9 Sinusitis Acute Unspec Office Visit 11/09/2006 1:45p DO Not Use Ame Torres 724.2 Lumbago Arvind Laura 724.4 Neuritis Or Radiculitis Thoracic Or Lumbosacral Unspec 788.41 Urinary Frequency Office Visit 11/04/2006 3:45p DO Not Use Ame Torres, 729.5 Pain In Arvind Laura Limb 786.50 Pain Chest Unspec Office Visit 07/27/2006 DO Not Use Radalice, 401.1 Hypertension 9:30a Arvind Mccloud M.D. 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 Benign 722.4 Intervertebral Disc Degeneration Cervical 311 Depressive Disorder Not Elsewhere Spec 300.00 Anxiety State Unspec Office Visit 02/23/2006 10:15a DO Not Use Brian 461.9 Sinusitis Acute Arvind Mccloud M.D. Unspec 401.1 Hypertension Benign 786.50 Pain Chest Unspec Office Visit 01/13/2006 DO Not Use [place], 401.1 Hypertension 1:15p Arvind Mccloud M.D. Benign 300.00 Anxiety State Unspec 311 Depressive Disorder Not Elsewhere Spec Office Visit 12/15/2005 DO Not Use [place], 401.1 Hypertension 11:15a Arvind Mccloud M.D. Benign Office Visit 11/03/2005 DO Not Use [place], 461.9 Sinusitis Acute 11:45a Arvind Mccloud M.D. Unspec Plan of Treatment Future Appointment(s):04/27/2018 11:15 am - Michelle Rashid M[facility] at [facility]/2018 10:45 am - Melania Morfin MD at [facility]04/05/2018 - Michelle Rashid M.D.G56.22 Lesion of ulnar nerve, left upper limbFollow up:Follow up: 3 weeks
--- OUTSIDE RECORDS SUMMARY | 2018-04-25 13:38 | XMS REPORT | Continuity of Care Document ---
:1960 External Reference #:[id number] Author Name Sophia Wolff Care Team Providers Name Role Phone Yovana Montoya M.D. Primary Care Physician Unavailable Payers Date Identification Numbers Payment Provider Subscriber Policy Number: [id number] Medicare - NGS Kat Umanzor PayID: [id number] [address] [place] [address] Policy Number: [id number] Medicaid Kat Umanzor PayID: [id number] [address] [place] [address] Advance Directives Description No Information Available Problems Date Description Provider Status Onset: Asthma Active Onset: Right bundle branch block Active Onset: Bipolar disorder Active Onset: Environmental allergy Active Onset: 06/05/2014 Toxic diffuse goiter with no crisis Jolie Kilgore O.D. Active Onset: 06/05/2014 Nuclear senile cataract Jolie Kilgore O.D. Active Onset: 06/05/2014 Tear film insufficiency Jolie Kilgore O.D. Active Onset: 06/05/2014 Presbyopia Jolie Kilgore O.D. Active Onset: 08/31/2016 Exophthalmos Bouchra Wen O.D. 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 Restasis Hx Emulsion 0.05% 180uni 1 drops [...] as Needed For Cough, Wheeze And Shor Immunizations Description No Information Available Vital Signs Date Vital Result Comment 08/18/2017 3:14pm BP Systolic 143 mmHg BP Diastolic 83 mmHg Heart Rate 63 /min Results Description No Information Available Procedures Date Code Description Status 04/04/2018 24403 Determination Of Refractive State Completed 04/04/2018 03219 Est Patient Intermediate Exam Completed 04/04/2018 56854 Close Lacrimal Punctum, Plug Completed 04/04/2018 18173 Close Lacrimal Punctum, Plug Completed 08/18/2017 81722 Est Patient Comprehensive Exam Completed 08/18/2017 62950 Close Lacrimal Punctum, Plug Completed 08/18/2017 25768 Close Lacrimal Punctum, Plug Completed 09/17/2016 42419 Determination Of Refractive State Completed 08/31/2016 90408 Est Patient Comprehensive Exam Completed 08/31/2016 77086 Close Lacrimal Punctum, Plug Completed 05/14/2015 35515 Est Patient Intermediate Exam Completed 03/25/2015 04630 Est Patient Comprehensive Exam Completed 06/05/2014 70306 Determination Of Refractive State Completed 06/05/2014 09945 New Patient Comprehensive Exam Completed 02/21/2009 07604 New Patient Comprehensive Exam Completed Encounters Type Date Location Provider Dx Diagnosis Office Visit 01/27/2018 [facility] Schwartz, Bouchra Wen, H04.123 Dry eye syndrome 11:00a , pc OPilar of bilateral lacrimal glands Plan of Treatment Future Appointment(s):08/30/2018 11:00 am - Bouchra Wen O.D. at Lobito Schwartz MD, 04/04/2018 - Bouchra Wen O.D.H04.123 Dry eye syndrome of bilateral lacrimal glandsFollow up:08/2018 FOR DFEH52.4 Presbyopia
[2018-04-25 14:07] VITALS: BP 146/78
--- NOTE | 2018-04-25 14:12 | UC ---
Skin Complaint HPI - HPI Summary HPI Summary: 57 yo female presents with right thumb/wrist pain, swelling, and redness for 2 days getting worse. She tells me that she woke up 2 days ago and had mild pain and swelling here, but this has gotten worse. She denies injury, numbness, or tingling. No hx of gout - History of Current Complaint Chief Complaint: UCUpperExtremity Time Seen by Provider: 04/25/18 14:12 Stated Complaint: RT THUMB Hx Obtained From: Patient Hx Last Menstrual Period: MENOPAUSE Onset/Duration: Gradual Onset Onset Severity: Moderate Current Severity: Severe Pain Intensity: 10 - Allergy/Home Medications Allergies/Adverse Reactions: Allergies Allergy/AdvReac Type Severity Reaction Status Date / Time azithromycin Allergy Severe Diarrhea Verified 04/25/18 14:07 codeine Allergy Severe Difficulty Verified 04/25/18 14:07 Breathing, facial swelling Penicillins Allergy Severe Rash, Verified 04/25/18 14:07 facial swelling Sulfa (Sulfonamide Allergy Severe Rash And Verified 04/25/18 14:07 Antibiotics) Itching tetracycline Allergy Severe Rash Verified 04/25/18 14:07 levofloxacin [From Levaquin] AdvReac Severe Anaphylatic Verified 04/25/18 14:07 Shock Bees Allergy Severe Anaphylatic Uncoded 04/25/18 14:07 Shock PMH/Surg Hx/FS Hx/Imm Hx - Additional Past Medical History Additional PMH: Chronic pain Cardiovascular History: Hypertension Psychological History: Anxiety, Depression, Bipolar Disorder Other History Of: Negative For: Anticoagulant Therapy - Surgical History Surgical History: Yes Surgery Procedure, Year, and Place: fusion cervical spine(PART OF METAL REMOVED BUT DOES STILL HAVE METAL IN NECK),. BILATERAL SHOULDER REPAIRS 4 YRS AGO,. laparoscopy of bowel,. both elbows PINCHED NERVES REPAIRED. UTERINE POLYP REMOVED-CARPAL TUNNEL RIGHT WRIST - Family History Known Family History: Positive: Cardiac Disease - father [place] >55 y/o, Hypertension, Respiratory Disease - COPD in mother - Social History Alcohol Use: None Alcohol Amount: 2 per year Substance Use Type: None Smoking Status (MU): Light Every Day Tobacco Smoker Type: Cigarettes Amount Used/How Often: 1/2 PPD Length of Time of Smoking/Using Tobacco: since age 17 Have You Smoked in the Last Year: Yes - "I smoked my last cigarette this morning 03/16/16" "I have patches" When Did the Patient Quit Smoking/Using Tobacco: will be stopping in a couple days has gum and patches Household Exposure Type: Cigarettes - Immunization History Most Recent Influenza Vaccination: 11/2015 Most Recent Tetanus Shot: last 10 years Most Recent Pneumonia Vaccination: none Review of Systems All Other Systems Reviewed And Are Negative: Yes Constitutional: Positive: Negative Respiratory: Positive: Negative Cardiovascular: Positive: Negative Neurovascular: Positive: Negative Musculoskeletal: Positive: Other: - Right wrist/thumb pain Neurological: Positive: Negative Psychological: Positive: Negative Physical Exam - Summary Physical Exam Summary: GENERAL: NAD. WDWN. No pain distress. SKIN: No rashes, sores, lesions, or open wounds. CHEST: No accessory muscle use. Breathing comfortably and in no distress. CV: Pulses intact radial and ulnar. Cap refill <2seconds MSK: RIGHT WRIST: CMC joint with moderate erythema, edema, and tenderness to light palpation. Movement worsens pain. No pain at thumb IP. NEURO: Alert. Sensations intact hand and all fingers. PSYCH: Age appropriate behavior. Triage Information Reviewed: Yes Vital Signs: Initial Vital Signs Temp 98.5 F 04/25/18 14:04 Pulse 96 04/25/18 14:04 Resp 18 04/25/18 14:04 BP 146/78 04/25/18 14:04 Pulse Ox 94 04/25/18 14:04 Vital Signs Reviewed: Yes Course/Dx - Course Course Of Treatment: XR: IMPRESSION: NO ACUTE OSSEOUS INJURY. IF SYMPTOMS PERSIST, RECOMMEND REPEAT IMAGING. Suspect gout of CMC joint. She is already on multiple pain medications - therefore will rx for prednisone. Strongly encouraged to return or go to the ER if her symptoms do not improve in the next 1-2 days. - Diagnoses Provider Diagnosis: Gout of right wrist Discharge - Sign-Out/Discharge Documenting (check all that apply): Patient Departure All imaging exams completed and their final reports reviewed: Yes - Discharge Plan Condition: Stable Disposition: HOME Prescriptions: predniSONE TAB* [Deltasone 20 MG TAB*] 20 mg PO BID #10 tab Patient Education Materials: Gout (ED) Referrals: Yovana Montoya MD [Primary Care Provider] - Additional Instructions: If you develop a fever, shortness of breath, chest pain, new or worsening symptoms - please call your PCP or go to the ED. Your blood pressure was high at todays visit. Please see your primary provider within 4 weeks for recheck and re-evaluation. 1) Apply ice to your wrist to reduce pain and swelling 2) If the redness worsens or if you develop a fever - please go to the ER - Billing Disposition and Condition Condition: STABLE Disposition: Home
== END 2018-04-25 15:01 | disposition home or self-care (01) ==
LOC: UCEAST 13:26
DX: M10.031 Idiopathic gout, right wrist (principal); I10 Essential (primary) hypertension; F41.9 Anxiety disorder, unspecified; F31.9 Bipolar disorder, unspecified; Z88.5 Allergy status to narcotic agent; Z88.0 Allergy status to penicillin; Z88.2 Allergy status to sulfonamides; Z88.1 Allergy status to other antibiotic agents; Z91.030 Bee allergy status; F17.210 Nicotine dependence, cigarettes, uncomplicated
CPT/HCPCS: 99212; G0463

== ENCOUNTER 2018-10-15 16:54 | Emergency (ER) | payer MEDICARE, MEDICAID ==
--- OUTSIDE RECORDS SUMMARY | 2018-10-15 17:01 | XMS REPORT | Continuity of Care Document ---
:1960 External Reference #:[id number] Author Name Yovana Montoya M.D. Address [address] [place] [address] Care Team Providers Name Role Phone Eliu Busch MD - Orthopaedic Surgery Care Team Information Supervisor Plastics [facility] Hospitalists - Hospitalist Care Team Information Supervisor Plastics [facility] - Care Team Information Supervisor Plastics [phone] Gastroenterology Jolie Miranda - Neurology Care Team Information Supervisor Plastics [phone] Wesley Valle MD - Infectious Care Team Information Supervisor Plastics Disease [employer] [facility] [employer] [employer] Care Team Information Supervisor Plastics [phone] Tim Bradley MD - Neurological Care Team Information Supervisor Plastics Surgery Brock Johnston MD - Orthopaedic Care Team Information Supervisor Plastics Surgery Michelle Rashid ([place] [facility]) - Care Team Information Supervisor Plastics Surgery of the Hand Problems Active Problems Provider Date Anxiety state Yovana Montoya M.D. Onset: 04/29/2010 Asthma without status asthmaticus Yovana Montoya M.D. Onset: 04/29/2010 Chronic pain syndrome Yovana Montoya M.D. Onset: 03/16/2011 Depressive disorder Yovana Montoya M.D. Onset: 04/27/2011 Bipolar disorder Yovana Montoya M.D. Onset: 04/27/2011 Vitamin D deficiency Yovana Montoya M.D. Onset: 04/27/2011 Mixed hyperlipidemia Yovana Montoya M.D. Onset: 04/27/2011 Benign essential hypertension Yovana Montoya M.D. Onset: 06/28/2011 Low back pain Yovana Montoya M.D. Onset: 09/04/2012 Tobacco user Yovana Montoya M.D. Onset: 10/23/2012 History of polyp of colon Yovana Montoya M.D. Onset: 11/13/2012 Dyspnea Yovana Montoya M.D. Onset: 01/24/2015 Urinary incontinence Yovana Montoya M.D. Onset: 01/24/2015 Nicotine dependence, cigarettes, with other Yovana Montoya M.D. Onset: nicotine-induced disorders Chronic obstructive lung disease Yovana Montoya M.D. Onset: 09/07/2016 Bladder muscle dysfunction - overactive Yovana Montoya M.D. Onset: 2016 Essential hypertension Yovana Montoya M.D. Onset: 11/09/2016 Obstructive sleep apnea syndrome Yovana Montoya M.D. Onset: 01/12/2018 Social History Type Date Description Comments Sex Unknown Tobacco Use Start: Unknown Current Cigarette Smoker 1 since teenager. Now Pack Daily 1/2 ppd as 10/2012. ETOH Use Rare 2 drinks a year. Tobacco Use Start: Unknown Patient is a current 1/2 ppd. working on smoker, smokes every day quitting. , down to 2 cigs a day Mostly vapes. Smoking Status Reviewed: 03/20/18 Patient is a current 1/2 ppd. working on smoker, smokes every day quitting. , down to 2 cigs a day Mostly vapes. Allergies, Adverse Reactions, Alerts Active Allergies Reaction Severity Comments Date Codeine 09/10/2009 Levofloxacin 09/10/2009 Penicillins 09/10/2009 Sulfa 09/10/2009 Tetracycline rash 09/10/2009 Bees 09/29/2009 Levaquin Severe Stop Breathing 04/01/2010 Gabitril sick to stomach, for 04/01/2010 anxiety Buspirone Vomiting 04/01/2010 Zithromax rash, diarrhea 06/11/2010 Orphenadrine vomiting/threw it up 02/17/2016 Medications Active Medications SIG Qnty Indications Ordering Date Provider Clarithromycin ER 1 by mouth twice 20tabs J01.90 Yovana Henson 07/14/2018 500mg daily Keya Montoya Tablets ER 24HR Pravastatin Sodium take one tablet 30tabs E78.49 Yovana Henson 07/14/2018 10mg by mouth one Keya Montoya Tablets time at night Detrol LA 1 by mouth 90caps Yovana Henson 11/09/2016 4mg Caps ER daily. Keya Montoya 24HR Breo Ellipta 1 puff a day 60units R07.82 Yovana Henson 08/20/2016 only. Keya Montoya 200-25mcg/Inh Aerosol Ventolin HFA 2 puffs every 4 8.5units R06.02 Mariola Kelsey 07/08/2016 108(90Base) times a day as Valenzuela, NP mcg/Act Aerosol needed Fluticasone Propionate 1 puff each 16units Yovana Henson 10/28/2014 nostril up to Keya Montoya 50mcg/Act Suspension bid. Epipen 2-Kai use as directed 2units Mariola Kelsey 06/21/2013 0.3mg/0.3ML [place] Valenzuela Solution Auto-Inject Oxycodone HCL 1 by mouth up to 120tabs Yovana Henson 06/11/2013 10mg 4 times a day as Keya Montoya Tablets needed for pain mdd 4 Amlodipine Besylate take 1 tablet by 90tabs I10 Yovana Henson 08/10/2011 5mg mouth once daily Keya Montoya Tablets Clonazepam 1 by mouth up to 90tabs F41.9 Yovana Henson 06/28/2011 0.5mg Tablets three times a Keya Montoya day as needed mdd 3 Lisinopril take 1 tablet by 90tabs Yovana Henson 06/28/2011 20mg Tablets mouth once daily Keya Montoya [employer] 1 po daily Yovana Henson 05/13/2010 Multivitamin From Keya Montoya [facility] Trazodone HCL take 1 /2 Unknown 100mg tablet by mouth Tablets at bedtime Sertraline HCL 2 PO qd Unknown 100mg Tablets Ranitidine 150 Maximum 1 by mouth twice 180tabs Yovana Henson Strength a day Keya Montoya 150mg Tablets Incruse Ellipta Unknown 62.5mcg/Inh Aerosol Mirtazapine Unknown Tablets 12 Hour Nasal Vidor Unknown Embeda 1 PO qd Unknown 80-3.2mg Capsules ER Tizanidine HCL take one by Unknown 4mg mouth up to 3 Capsules times per day as needed for pain Latuda 1 by mouth every Unknown 80mg Tablets at night History Medications Carisoprodol 1 by mouth up to 90tabs M54.5 Yovana Henson 04/13/2018 - 350mg three times daily Keya Montoya 06/16/2018 Tablets Physical Therapy evaluate and [id number] Yovana Henson 04/13/2018 - treat low back Keya Montoya 06/16/2018 pain Medications Administered in Office Medication SIG Qnty Indications Ordering Provider Date TB Intradermal Test Yovana Montoya M.D. 12/06/2016 Injection Immunizations CPT Code Status Date Vaccine Lot # [id number] Given 11/11/2017 Influenza Vac, Quadrivalent, Slit Virus, Im [id number] Given 11/25/2016 Influenza Vac, [place], [place] [address] Given 08/20/2016 Tdap Tetanus, W Pertussis [id number] 54141 Given 11/30/2015 Influenza Vac, [place]riv[place], [place] [address] Given 11/12/2014 Influenza Vac, [place]riv[place], [place] [address] Given 12/20/2013 DO Not Use Split Influenza Virus Vaccine 33822 Given 11/21/2012 DO Not Use Split Influenza Virus Vaccine 63206 Given 11/13/2012 Pneumococcal Immunization [id number] 85946 Given 12/10/2011 DO Not Use Split Influenza Virus Vaccine 05501 Given 11/05/2010 DO Not Use Split Influenza Virus Vaccine 02515 Given 11/24/2009 DO Not Use Split Influenza Virus Vaccine [id number] Vital Signs Date Vital Result Comment 09/21/2018 9:35am BP Systolic 130 mmHg BP Diastolic 78 mmHg Heart Rate 76 /min Body Temperature 98.0 F Respiratory Rate 18 /min Weight 178.00 lb 07/14/2018 11:15am BP Systolic 90 mmHg BP Diastolic 58 mmHg Heart Rate 100 /min Body Temperature 98.8 F Respiratory Rate 16 /min Height 60 inches 5'0" per patient Weight 185.00 lb BMI (Body Mass Index) 36.1 kg/m2 Results Test Date Facility Test Result H/L Range Note Laboratory test finding 09/04/2018 Jha Shara(a) CK 77 U/L 26-140 1 Comprehensive Metabolic 09/04/2018 Jha Shara(a) Sodium 139 mEq/L 134-149 Prof Potassium 4.2 mEq/L 3.6-5.5 Chloride 105 mEq/L 94-112 Carbon Dioxide 26 mEq/L 21-32 Glucose 114 mg/dL High 70-105 BUN 18 mg/dL 6-26 Creatinine 0.9 mg/dL 0.6-1.4 BUN/Creat Ratio 20.0 CALC 8.0-36.0 Calcium 9.5 mg/dL 8.6-10.2 Total Protein 7.1 g/dL 6.4-8.3 Albumin 4.4 g/dL 3.8-5.5 Globulin 2.7 g/dL 2.0-4.8 A/G Ratio 1.6 CALC 0.6-2.3 Alk. Phosphatase 113 U/L High 30-110 Alt (SGPT) 25 U/L 7-35 Ast (Sgot) 21 U/L 5-34 Total Bilirubin 0.2 mg/dL 0.2-1.3 GFR Non- >60 ml/min/1.73m^ >=60 GFR >60 ml/min/1.73m^ >=60 Lipid Profile 09/04/2018 Jha Shara(fma) Cholesterol 184 mg/dL 120- 200 Triglycerides 373 mg/dL High 30-200 HDL Cholesterol 44 mg/dL 30-85 LDL (Calculated) 65 CALC 0-129 VLDL Cholesterol 75 mg/dL High 0-50 HDL Risk Factor 4.2 CALC 0.0-4.4 Laboratory test 09/04/2018 Jha Shaar(a) LDL, Direct 83 mg/dL 0- 130 finding Laboratory test 06/26/2018 Jha Shara(fma) TSH 1.83 mIU/L 0.50-6.00 finding Vitamin D25 19 Low 30-100 CBC Electronic a 06/26/2018 Jha Shara([facility]) WBC 11.3 x10^3/UL High 4.0-10.0 RBC 4.89 x10^6/UL 3.93-6.00 HGB 14.4 g/dL 12.0-17.0 HCT 43 % 35-50 MCV 88.8 fL 80.0-95.0 MCH 29.4 pg 25.6-32.2 MCHC 33.2 g/dL 32.2-36.0 RDW-CV 14.2 % 11.6-14.4 PLT 301 x10^3/UL 163-400 MPV 8.8 fL Low 9.4-12.4 Darrion# 6.56 x10^3/UL High 1.56-6.13 Lymph# 3.38 x10^3/UL 1.18-3.74 Noble# 0.88 x10^3/UL High 0.24-0.82 Eos # 0.4 x10^3/UL 0.0-0.5 Baso # 0.03 x10^3/UL 0.01-0.08 Darrion% 58.4 % 34.0-70.0 Lymph % 30.0 % 20.0-52.0 Noble% 7.8 % 5.0-12.0 Eos% 3.1 % 0.7-7.0 Baso% 0.3 % 0.1-1.2 Comprehensive Metabolic 06/26/2018 Jha Shara([facility]) Sodium 141 mEq/L 134-149 Prof Potassium 4.0 mEq/L 3.6-5.5 Chloride 101 mEq/L 94-112 Carbon Dioxide 26 mEq/L 21-32 Glucose 99 mg/dL 70-105 BUN 9 mg/dL 6-26 Creatinine 0.8 mg/dL 0.6-1.4 BUN/Creat Ratio 11.3 CALC 8.0-36.0 Calcium 9.7 mg/dL 8.6-10.2 Total Protein 7.6 g/dL 6.4-8.3 Albumin 4.7 g/dL 3.8-5.5 Globulin 2.9 g/dL 2.0-4.8 A/G Ratio 1.6 CALC 0.6-2.3 Alk. Phosphatase 105 U/L 30-110 Alt (SGPT) 19 U/L 7-35 Ast (Sgot) 15 U/L 5-34 Total Bilirubin 0.3 mg/dL 0.2-1.3 GFR Non- >60 ml/min/1.73m^ >=60 GFR >60 ml/min/1.73m^ >=60 Lipid Profile 06/26/2018 Abhijeet Shara(fma) Cholesterol 242 mg/dL High 120-200 Triglycerides 284 mg/dL High 30-200 HDL Cholesterol 54 mg/dL 30-85 LDL (Calculated) 131 CALC High 0-129 VLDL Cholesterol 57 mg/dL High 0-50 HDL Risk Factor 4.5 CALC High 0.0-4.4 Laboratory test 06/26/2018 Abhijeet Olmedo(fma) LDL, Direct 136 mg/dL High 0-130 finding 1 FASTING august 2018. Procedures Date Code Description Status 05/16/2017 [id number] Mammogram Completed 08/15/2015 [id number] Colonoscopy Completed 06/10/2015 [id number] Mammogram Completed 04/18/2014 [id number] Mammogram Completed 07/04/2012 [id number] Mammogram Completed 03/31/2011 [id number] Mammogram Completed Medical Devices Description No Information Available Encounters Type Date Location Provider Dx Diagnosis Office Visit 07/14/2018 [facility] Yovana Henson J01.90 Acute sinusitis, 11:00a Keya Montoya unspecified E78.49 Other hyperlipidemia E55.9 Vitamin D deficiency, unspecified F41.9 Anxiety disorder, unspecified E78.1 Pure hyperglyceridemia Office Visit 06/23/2018 9:40a [facility] Office Yovana Henson 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 Jan, M54.5 Low back pain Keya M54.31 Sciatica, right side F41.9 Anxiety disorder, unspecified Assessments Date Code Description Provider 09/21/2018 E78.2 Mixed hyperlipidemia Yovana Montoya M.D. 09/21/2018 I10 Essential (primary) hypertension Yovana Montoya M.D. 09/21/2018 Z12.31 Encounter for screening mammogram for Yovana Montoya M.D. malignant neoplasm of breast 09/04/2018 E78.49 Other hyperlipidemia Yovana Montoya M.D. 09/04/2018 E78.1 Pure hyperglyceridemia Yovana Montoya M.D. 07/14/2018 J01.90 Acute sinusitis, unspecified Yovana Montoya M.D. 07/14/2018 E78.49 Other hyperlipidemia Yovana Montoya M.D. 07/14/2018 E55.9 Vitamin D deficiency, unspecified Yovana Montoya M.D. 07/14/2018 F41.9 Anxiety disorder, unspecified Yovana Montoya M.D. 07/14/2018 E78.1 Pure hyperglyceridemia Yovana Montoya M.D. 06/26/2018 E78.49 Other hyperlipidemia Yovana Montoya M.D. 06/26/2018 E55.9 Vitamin D deficiency, unspecified Yovana Montoya M.D. 06/26/2018 I65.23 Occlusion and stenosis of bilateral carotid Yovana Montoya M.D. arteries 06/26/2018 E78.1 Pure hyperglyceridemia Yovana Montoya M.D. 06/23/2018 I65.23 Occlusion and stenosis of bilateral carotid Yovana Montoya M.D. arteries 06/23/2018 E78.49 Other hyperlipidemia Yovana Montoya M.D. 06/23/2018 E55.9 Vitamin D deficiency, unspecified Yovana Montoya M.D. 06/23/2018 J44.9 Chronic obstructive pulmonary disease, Yovana Montoya M.D. unspecified 06/23/2018 M54.5 Low back pain Yovana Montoya M.D. 06/16/2018 G89.4 Chronic pain syndrome Yovana Montoya M.D. 06/16/2018 F41.9 Anxiety disorder, unspecified Yovana Montoya M.D. 06/16/2018 B08.1 Molluscum contagiosum Yovana Montoya M.D. 04/13/2018 M54.5 Low back pain Yovana Montoya M.D. 04/13/2018 M54.31 Sciatica, right side Yovana Montoya M.D. 04/13/2018 F41.9 Anxiety disorder, unspecified Yovana Montoya M.D. Plan of Treatment 07/14/2018 - Yovana Montoya M.D.J01.90 Acute sinusitis, unspecifiedNew Medication:Clarithromycin ER 500 mg - 1 by mouth twice dailyComments:eat yogurt to prevent yeast infections. nasal saline spray.E78.49 Other hyperlipidemiaNew Medication:Pravastatin Sodium 10 mg - take one tablet by mouth one time at nightComments:start pravastatin. will check lipids in 2 months.E55.9 Vitamin D deficiency, unspecifiedComments:take up to 10,000 units a week. continue your xyuihxxsqmnnI43.9 Anxiety disorder, unspecifiedComments:refill clonazepam.E78.1 Pure hyperglyceridemiaComments:Because the triglyceride level was elevated, a LDL-c could not be done, and a LDL direct was performed.AllComments:Medication Management Patient Understands medications she's taking? Yes No Are there Barriers to Adherence? Yes No Has the patient been asked about herbal supplements and therapies, and OTC meds? Yes No Functional Status Description No Information Available Mental Status Description No Information Available Referrals Description No Information Available
--- OUTSIDE RECORDS SUMMARY | 2018-10-15 17:01 | XMS REPORT | Continuity of Care Document ---
:1960 External Reference #:[id number] Author Name Yovana Montoya M.D. Address [address] [place] [address] Care Team Providers Name Role Phone Eliu Busch MD - Orthopaedic Surgery Care Team Information Mat Worker [facility] [place] [facility] - Hospitalist Care Team Information Mat Worker [facility] - Care Team Information Mat Worker [phone] Gastroenterology Jolie Miranda - Neurology Care Team Information Mat Worker [phone] Wesley Valle MD - Infectious Care Team Information Mat Worker [phone] Disease [facility] - Oxygen Equipment [facility] Supplies Care Team Information Mat Worker Tim Bradley MD - Neurological Care Team Information Mat Worker Surgery Brock Johnston MD - Orthopaedic Care Team Information Mat Worker [phone] Surgery Michelle Rashid ([place] [facility]) - Care Team Information Mat Worker Surgery of the Hand Problems Active Problems [...] 10/23/2012 History of polyp of colon Yovana oMntoya M.D. Onset: 11/13/2012 Dyspnea Yovana Montoya M.D. [...] Detrol LA 1 by mouth 90caps Yovana Hneson 11/09/2016 4mg Caps ER daily. [place] Montoya [...] Aerosol Mirtazapine Unknown Tablets 12 Hour Nasal [place] Unknown Embeda 1 PO qd Unknown 80-3.2mg [...] CPT Code Status Date Vaccine Lot # [id number] Given 11/11/2017 Influenza Vac, Quadrivalent, Slit Virus, Im [id number] Given 11/25/2016 Influenza Vac, [place], [place] [address] Given 08/20/2016 Tdap Tetanus, W Pertussis [id number] [id number] Given 11/30/2015 Influenza Vac, [place]riv[place], [place] [address] Given 11/12/2014 Influenza Vac, [place]riv[place], [place] [id number] Given 12/20/2013 DO Not Use Split Influenza Virus Vaccine [id number] Given 11/21/2012 DO Not Use Split Influenza Virus Vaccine 35629 Given 11/13/2012 Pneumococcal Immunization [id number] Given 12/10/2011 DO Not Use Split Influenza Virus Vaccine 28320 Given 11/05/2010 DO Not Use Split Influenza Virus Vaccine 78005 Given 11/24/2009 DO Not Use Split Influenza Virus Vaccine [id number] Vital Signs Date Vital Result Comment 09/21/2018 [...] 4.2 CALC 0.0-4.4 Laboratory test 09/04/2018 Jha Shara(a) LDL, Direct 83 mg/dL 0- 130 finding Laboratory test 06/26/2018 Jha Shara(fma) TSH 1.83 mIU/L 0.50-6.00 finding Vitamin D25 19 Low 30-100 CBC Electronic a 06/26/2018 Jha Shara([facility]) WBC 11.3 x10^3/UL High 4.0-10.0 RBC 4.89 x10^6/UL 3.93-6.00 HGB 14.4 g/dL 12.0-17.0 HCT 43 % 35-50 MCV 88.8 fL 80.0-95.0 MCH 29.4 pg 25.6-32.2 MCHC 33.2 g/dL 32.2-36.0 RDW-CV 14.2 % 11.6-14.4 PLT 301 x10^3/UL 163-400 MPV 8.8 fL Low 9.4-12.4 Darrion# 6.56 x10^3/UL High 1.56-6.13 Lymph# 3.38 x10^3/UL 1.18-3.74 Jenkins# 0.88 x10^3/UL High 0.24-0.82 Eos # 0.4 x10^3/UL 0.0-0.5 Baso # 0.03 x10^3/UL 0.01-0.08 Darrion% 58.4 % 34.0-70.0 Lymph % 30.0 % 20.0-52.0 Jenkins% 7.8 % 5.0-12.0 Eos% 3.1 % 0.7-7.0 Baso% 0.3 % 0.1-1.2 Comprehensive Metabolic 06/26/2018 Jha Shara([facility]) Sodium 141 mEq/L 134-149 Prof Potassium 4.0 [...] 2018. Procedures Date Code Description Status 05/16/2017 [id number] Mammogram Completed 08/15/2015 [id number] Colonoscopy Completed 06/10/2015 [id number] Mammogram Completed 04/18/2014 [id number] Mammogram Completed 07/04/2012 [id number] Mammogram Completed 03/31/2011 [id number] Mammogram Completed Medical Devices Description No Information Available Encounters Type Date Location Provider Dx Diagnosis Office Visit 07/14/2018 [facility] Office Yovana Henson J01.90 Acute sinusitis, 11:00a [place] Mont[place] unspecified E78.49 Other hyperlipidemia E55.9 Vitamin D deficiency, unspecified F41.9 Anxiety disorder, unspecified E78.1 Pure hyperglyceridemia Office Visit 06/23/2018 9:40a 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 Office Yovana L. Jan, M54.5 Low back pain [place] M54.31 Sciatica, right side F41.9 Anxiety disorder, unspecified Assessments Date Code Description Provider 09/21/2018 E78.2 Mixed hyperlipidemia Yovana Montoya M.D. 09/21/2018 I10 Essential (primary) hypertension Yovana Montoya M.D. 09/21/2018 Z12.31 Encounter for screening mammogram for Yovana Montoya M.D. malignant neoplasm of 09/04/2018 E78.49 Other hyperlipidemia Yovana Montoya M.D. [...] unspecified Yovana Montoya M.D. Plan of Treatment Future Appointment(s):12/22/2018 2:00 pm - [facility]09/21/2018 - Yovana Montoya M.D.E78.2 Mixed hyperlipidemiaComments:numbers are good. continue pravastatin.Follow up: complete physical and pap smear.I10 Essential (primary) hypertensionComments: well controlled. continue present meds.Z12.31 Encounter for screening mammogram for malignant neoplasm ofNew Xrays:Mammography Screening, Bilateral; 2 -View Each Breast, Scheduled: 09/26/18Comments:mammogram ordered.AllComments: Medication Management Patient Understands medications she's taking? Yes No Are there Barriers to Adherence? Yes No Has the patient been asked about herbal supplements and therapies, and OTC meds? Yes No Functional Status Description No Information Available Mental Status Description No Information Available Referrals Description No Information Available
--- OUTSIDE RECORDS SUMMARY | 2018-10-15 17:02 | XMS REPORT | Continuity of Care Document ---
:1960 External Reference #:[id number] Author Name Ijeoma Humphrey Care Team Providers Name Role Phone Yovana Montoya MD Primary Care Physician Unavailable Payers Date Identification Numbers Payment Provider Subscriber Policy Number: [id number] Medicare Nicolee L Sloughter PayID: [id number] [address] [place] [address] Effective: 2000 Policy Number: [id number] Medicare Nicolee L Noé Expires: 2017 PayID: [id number] [address] [place] [address] Policy Number: [id number] Medicaid Kat Umanzor Group Name: 1 1 [address] PayID: [id number] [place] [address] Problems Active Problems Provider Date Dyspnea Melania Morfin MD Onset: 10/29/2014 Chronic obstructive lung disease Melania Morfin MD Onset: 10/29/2014 Tobacco user Melania Morfin MD Onset: 10/29/2014 Sleep disorder Melania Morfin MD Onset: 10/29/2014 Neck pain Eugenio Villegas M.D. Onset: 01/20/2015 Cervical spondylosis without myelopathy Tim Bradley M.D. Onset: 11/03/2016 Closed fracture of phalanx of foot Gus Godinez MD Onset: 11/16/2017 Family History Date Family Member(s) Observation Comments [...] ready to quit smoking Smoking Status Reviewed: 09/18/18 Patient is getting ready to quit smoking Exercise Type/Frequency Does not exercise Allergies, Adverse Reactions, Alerts Active Allergies Reaction Severity Comments Date Sulfa 11/02/2011 Codeine 10/29/2014 Levofloxacin 10/29/2014 Penicillin 10/29/2014 Sulfa Antibiotics 10/29/2014 Tetracycline 10/29/2014 Zithromax 10/29/2014 Buspirone 10/29/2014 Tetracycline 10/29/2014 Bee Sting Anaphylaxis Severe 08/11/2017 Medications Active Medications SIG Qnty Indications Ordering Date Provider Fco Ovalle inhale 1 puff by 60units Melania Morfin, 12/26/2017 mouth once daily 200-25mcg/Inh Aerosol Voltaren apply 4 gm to the 900gm M25.561 Brock F 07/12/2017 1% Gel affected area 4 MD Vickie times a day as needed for pain Oxygen please use o2 at 1units J44.9 Melania Morfin, 10/27/2016 Misc 2l/min with MD hernandez. pls provide pt with [employer] portable concentrator R09.02 Incbjorn Ovalle inhale one puff by 30units Melania Morfin MD 10/08/2016 62.5mcg/Inh mouth every day Aerosol Besolate bid Melania Morfin MD 09/21/2016 2mg Albuterol Sulfate 1 unit nebl every 6 4units Melania Morfin MD 2015 (2.5mg/3ML) hours as needed 0.083% Nebulizer Sertraline HCL 1 by mouth every day Unknown 10/28/2014 200mg Tablets Trazodone HCL 1 by mouth every Unknown 10/28/2014 150mg Tablets night at bedtime Lisinopril 1 by mouth every day Unknown 10/28/2014 20mg Tablets Clonazepam tid Unknown 10/28/2014 0.5mg Tablets Amlodipine Besylate 1 by mouth every day Unknown 10/28/2014 5mg Tablets Miralax 17 gm every day as Unknown 10/28/2014 3350NF Packet needed Oxycodone HCL 1 by mouth every 6 Unknown 10/28/2014 10mg Tablets hours as needed pain Epipen 2-Kai use as directed Unknown 10/28/2014 0.3mg/0.3ML Solution Auto-Inject Tizanidine HCL take 1 tablet by Unknown 4mg Tablets mouth three times a day if needed Embeda 1 by mouth every day Unknown 20-0.8mg Capsules ER Latuda 1 by mouth every, day Unknown 40mg Tablets after dinner Mirtazapine one tab at hs Unknown 7.5mg Tablets Detrol LA take one capsule by Unknown 4mg Caps ER 24HR mouth every hs Ventolin HFA 2 puffs by mouth four Unknown 108(90Base) times a day as needed mcg/Act Aerosol History Medications Clarithromycin ER 1 tab daily 7tabs J44.9 Melania 02/20/2018 - 500mg MD Shelbie 03/20/2018 Tablets ER 24HR Cogentin 1 mg by mouth two [facility] 08/11/2017 - 1mg/ml times per day MD Shelbie 11/20/2017 Solution Doxycycline 1 tablet by mouth 14caps J44.1 [facility] 08/11/2017 - Monohydrate every 12 hours MD Shelbie 11/20/2017 100mg Capsules Prednisone 30mg daily for 1 30tabs J44.1 [facility] 08/11/2017 - 10mg Tablets week, 20mg daily MD Shelbie 11/20/2017 for 1 week, 10 mg daily for 1 week Chantix Starting take 0.5 mg tab 53tabs F17.210 Melania 05/11/2017 - Month Kai days 1-3, 0.5 mg MD Shelbie 11/20/2017 0.5mg X 11 & twice daily days 1 mg X 42 Tablets 4-7, day 8 to end of pack take 1 mg twice daily Spiriva Respimat 2 puffs every day 4gm Melnaia 05/05/2015 - MD Shelbie 05/06/2015 2.5mcg/Act Aerosol Incruse Ellipta 1 inhalation once 30units Melania 05/05/2015 - daily MD Shelbie 09/20/2016 62.5mcg/Inh Aerosol Symbicort 2 puff twice a 3units J44.9 Melania 01/20/2015 - 80-4.5mcg/Act day MD Shelbie 09/20/2016 Aerosol R06.02 Tudorza Pressair 1 puff puff 2units Melania 01/20/2015 - 400mcg/Act twice a day MD Shelbie 05/06/2015 Aerosol Nicotine Polacrilex 1 by mouth 60units 305.1 Melania 10/29/2014 - 4mg every 4 hours MD Shelbie 01/20/2015 Lozenges as needed Symbicort 2 puff twice a 3units 496 Melania 10/29/2014 - 80-4.5mcg/Act Aerosol day MD Shelbie 01/20/2015 Tudorza Pressair 1 puff puff 2units 496 Melania 10/29/2014 - 400mcg/Act twice a day MD Shelbie 01/20/2015 Aerosol Cogentin 1 bid Melania 10/29/2014 - 2mg Solution MD Shelbie 08/10/2017 Prozac 1 by mouth Unknown 10/28/2014 - 20mg Capsules every day 10/29/2014 Prilosec 1 by mouth Unknown 10/28/2014 - 20mg Capsules DR every day 09/20/2016 Vesicare 1 by mouth Unknown 10/28/2014 - 10mg Tablets every day 09/20/2016 Tizanidine HCL 1 three times a Unknown 10/28/2014 - 4mg Capsules day as needed 09/20/2016 Proair HFA 2 puffs by Unknown 10/28/2014 - 108(90Base) mcg/Act mouth every 4 09/20/2016 Aerosol hours as needed Equate As Directed Unknown 10/28/2014 - Tablet 10/11/2016 Flovent HFA 2 puffs twice Unknown 10/28/2014 - 110mcg/Act Aerosol daily 09/20/2016 Simvastatin 1 by mouth Unknown 10/28/2014 - 20mg Tablets every day 10/28/2014 Restasis one drops both Unknown 10/28/2014 - 0.05% Emulsion eyes twice a 09/20/2016 day Zocor 1 by mouth Unknown 10/28/2014 - 20mg Tablets every night at 09/20/2016 bedtime Norvasc 1 by mouth Unknown 10/28/2014 - 5mg Tablets every day 10/11/2016 Naproxen 1 tablet with 40tabs Kerry Raymond, 04/06/2013 - 500mg Tablets food po bid M.D. 09/20/2016 Percocet 1-2 tabs po 60tabs Eliu Busch, 10/26/2011 - 5-325mg Tablets q4-6 prn pain M.D. 09/20/2016 Baclofen take 1/2 tab Unknown - 10mg Tablets every tid 09/17/2018 Geodon 1 tab qhs Unknown - 11/20/2017 Cefdinir take 1 capsule Unknown - 300mg Capsules by mouth twice 10/30/2016 a day Methylprednisolone take as Unknown - 4mg TBPK directed 05/10/2017 Benztropine Mesylate Take 1 Tablet Unknown - 2mg Twice Daily 05/10/2017 Tablets Ziprasidone HCL Sheila, - 80mg Capsules MD Flaco 05/10/2017 Ranitidine HCL Jan, - 150mg Tablets Yovana Henson MD 05/10/2017 Trazodone HCL Sheila, - 150mg Tablets MD Flaco 05/10/2017 Sertraline HCL Sheila, - 100mg Tablets MD Flaco 05/10/2017 Clarithromycin Jan, - 500mg Tablets Yovana Henson MD 05/10/2017 2ND Skin Scargel Unknown - Gel 04/06/2017 Doxycycline Hyclate take 1 capsule Unknown - 100mg by mouth twice 08/10/2017 Capsules a day for 7 days Prednisone take 2 tablets Unknown - 20mg Tablets by mouth once 08/10/2017 daily for 5 days Carisoprodol one tab po tid Unknown - 350mg Tablets 09/17/2018 Medications Administered in Office Medication SIG Qnty Indications Ordering Provider Date Dexamethasone Sodium Brock Johnston MD 07/12/2017 Phosphate, 1 MG Injection Depomedrol 40MG Brock Johnston MD 04/07/2017 Injection Depomedrol 80MG Kerry Raymond M.D. 04/06/2013 Injection Depomedrol 80MG Eliu Busch M.D. 11/12/2011 Injection Depomedrol 80MG Eliu Busch M.D. 09/02/2011 Injection Depomedrol 40MG Eliu Busch M.D. 09/02/2011 Injection Depomedrol 80MG Eliu Busch M.D. 01/14/2011 Injection Depomedrol 40MG Eliu Busch M.D. 01/14/2011 Injection Depomedrol 80MG Eliu Busch M.D. 12/02/2010 Injection Depomedrol 80MG lEiu Busch M.D. 11/04/2010 Injection Immunizations CPT Code Status Date Vaccine Lot # [id number] Given 01/24/2008 Influenza Virus 3Yrs & Over 45380 Given 01/24/2008 Influenza Virus 3Yrs & Over 05284 Given 04/26/2007 Tdap - Tetanus/Diptheria/Acellular Pertussis 02100 Given 12/06/2006 Influenza Virus 3Yrs & Over 55107 Given 12/03/2005 Influenza Virus 3Yrs & Over Vital Signs Date Vital Result Comment 09/18/2018 10:11am Height 60 inches 5'0" Weight 180.38 lb Heart Rate 72 /min BP Systolic Sitting 114 mmHg Lue regular cuff BP Diastolic Sitting 70 mmHg Lue regular cuff Respiratory Rate 14 /min O2 % BldC Oximetry 92 % BMI (Body Mass Index) 35.2 kg/m2 04/27/2018 11:23am Height 60 inches 5'0" Weight 181.00 lb Patient stated Heart Rate 92 /min BP Systolic 144 mmHg BP Diastolic 76 mmHg Respiratory Rate 18 /min Pain Level 3 BMI (Body Mass Index) 35.3 kg/m2 04/05/2018 11:32am Height 60 inches 5'0" Heart [...] Result H/L Range Note Laboratory test 08/11/2017 [facility] C Reactive 4.98 mg/L Normal <8.[address] [place] [address] [phone] CBC Auto Diff 08/11/2017 [facility] White Blood 10.0 Normal 3.5-10.[address] Count 10^3/[place] [address] [phone] Red Blood Count 4.37 10^6/uL Normal 4.00-5.40 Hemoglobin 13.3 g/dL Normal 12.0-16.0 Hematocrit 39 % Normal 35-47 Mean Corpuscular Volume 88 fL Normal 80-97 Mean Corpuscular Hemoglobin 30 pg Normal 27-31 Mean Corpuscular HGB Conc 34 g/dL Normal 31-36 Red Cell Distribution Width 14 % Normal 10.5-15 Platelet Count 316 10^3/uL Normal 150-450 Mean Platelet Volume 6.7 um3 Low 7.4-10.4 Abs Neutrophils 6.7 10^3/uL Normal 1.5-7.7 Abs Lymphocytes 2.2 10^3/uL Normal 1.0-4.8 Abs Monocytes 0.8 10^3/uL Normal 0-0.8 Abs Eosinophils 0.3 10^3/uL Normal 0-0.6 Abs Basophils 0 10^3/uL Normal 0-0.2 Abs Nucleated RBC 0 10^3/uL Granulocyte % 66.8 % Normal 38-83 Lymphocyte % 22.2 % Low 25-47 Monocyte % 8.1 % High 0-7 Eosinophil % 2.6 % Normal 0-6 Basophil % 0.3 % Normal 0-2 Nucleated Red Blood Cells % 0 Xray 09/23/[address] [facility] [address] Lung Screening-Low Dose <pending> [address] [place] [address] [phone] Procedures Date Code Description Status 03/24/2018 92307 Neuroplasty/Transposition, Ulnar Nerve AT Wrist Completed 03/24/2018 70398 Neuroplasty/Transposition, Ulnar Nerve AT Wrist Completed 01/11/2018 25362 Polysomnography Sleep Staging 4+ Parameters W/Cpap Completed 10/23/2017 53962 Polysomnography Sleep Staging 4+ Parameters Completed 07/12/2017 90788 Admin Of Inj Completed 04/07/201773827 Inject/Drain Joint/Bursa Major W/O US Completed 10/27/2016 91583 Pulmonary Function><Bronchodil Completed 10/27/2016 77185 Pulmonary Stress Test Simple Completed 10/27/2016 84726 Plethysmography Determination Lung Volumes & Per Airway Completed Resist 10/27/2016 50851 Diffusing Capacity Completed 02/05/2016 01468 EKG, Interpretation Only Completed 10/27/2015 21646 Treadmill Interp/Report Only Completed 10/27/2015 62846 Stress Test Supervsn W/Out I/R Completed 04/06/2013 09029 Xray Knee 3 Views Completed 04/06/2013 Inject/Drain Joint/Bursa Major W/O US Completed 01/19/2012 38927 Arthroscopy Shoulder Debridement Extensive Completed 01/19/2012 01606 Arthroscopy Shoulder Debridement Extensive Completed 01/11/2012 32392 EKG, Interpretation Only Completed 11/12/201190163 Inject/Drain Joint/Bursa Major W/O US Completed 11/03/2011 66488 Arthroscopy,Unlisted Procedure Completed 11/03/2011 83156 Arthroscopy,Unlisted Procedure Completed 11/03/2011 61855 Arthroscopy,Shoulder Decompression Of Subacromial Space Completed /Acromio 11/03/2011 09466 Arthroscopy,Shoulder Decompression Of Subacromial Space Completed /Acromio 11/03/2011 57459 Arthroscopy,Shoulder,Distal Claviculectomy Incl Dist Completed Articular SR 11/03/2011 22747 Arthroscopy,Shoulder,Distal Claviculectomy Incl Dist Completed Articular SR 09/02/201161682 Inject/Drain Joint/Bursa Intermediate W/O US Completed 09/02/201179443 Inject/Drain Joint/Bursa Major W/O US Completed 08/21/2011 22176 Treadmill Interp/Report Only Completed 08/21/2011 92133 Stress Test Supervsn W/Out I/R Completed 01/14/2011 Inject/Drain Joint/Bursa Intermediate W/O US Completed 12/02/201022935 Inject/Drain Joint/Bursa Intermediate W/O US Completed 11/04/201060719 Inject/Drain Joint/Bursa Major W/O US Completed 09/30/2010 40117 Rad Shoulder Comp, Min. 2 Views Completed 04/26/2007 77102 EKG Tracing & Interpretation Completed 04/26/2007 32044 EKG Tracing & Interpretation Completed Encounters Type Date Location Provider Dx Diagnosis Office Visit 03/21/2018 Pulmonology And Cinthia Gonzalez44.9 Chronic obstructive 9:30a Sleep Services Of pulmonary disease, Liquid Sugar Melter unspecified R09.02 Hypoxemia F17.210 Nicotine dependence, cigarettes, uncomplicated E66.09 Other obesity due to excess calories Z12.2 Encntr screen for malignant neoplasm of respiratory organs Z01.811 Encounter for preprocedural respiratory examination Office Visit 03/02/2018 Roxanne Martinez G56.22 Lesion of ulnar 10:45a Services Of Keya Rashid nerve, left upper C.M.A. limb Office Visit 02/20/2018 Pulmonology And Cinthia Gonzalez44.9 Chronic 1:15p Sleep Services Of MD gee Liquid Sugar Melter pulmonary disease, unspecified R09.02 Hypoxemia F17.210 Nicotine [...] Gonzalez44.9 Chronic 11:00a Sleep Services Of MD gee Liquid Sugar Melter pulmonary disease, unspecified R09.02 Hypoxemia F17.210 Nicotine dependence, cigarettes, uncomplicated G47.33 Obstructive sleep apnea (adult) (pediatric) E66.09 Other obesity due to excess calories Z12.2 Encntr screen for malignant neoplasm of respiratory organs Office Visit 11/16/2017 Roxanne Godinez, S92.534A Nondisp fx of 1:30p Services Of distal phalanx of C.M.A. right lesser toe(s), init Office Visit 08/11/2017 Pulmonology And Melania J44.1 Chronic 11:30a Sleep Services Of MD Shelbie obstructive Liquid Sugar Melter pulmonary disease w (acute) exacerbation F17.210 Nicotine dependence, cigarettes, uncomplicated R09.02 Hypoxemia R06.83 Snoring Office Visit 07/12/2017 Orthopedic Brock Mcintosh M25.561 Pain in right 1:15p Services Of MD Vickie knee C.M.A. Office Visit 05/12/2017 Orthopedic Brock F M25.511 Pain in right 11:00a Services Of MD Vickie shoulder C.M.A. Office Visit 05/11/2017 Pulmonology And Melanai J44.9 Chronic 10:45a Sleep Services Of MD Shelbie obstructive Liquid Sugar Melter pulmonary disease, unspecified R09.02 Hypoxemia Z01.811 Encounter for preprocedural respiratory examination F17.210 Nicotine dependence, cigarettes, uncomplicated Office Visit 04/07/2017 2:00p Orthopedic Brock F M25.511 Pain in right Services Of MD Vickie shoulder C.M.A. M75.51 Bursitis of right shoulder Office Visit 12/30/2016 Orthopedic Brock Mcintosh M25.511 Pain in right 10:00a Services Of MD Vickie shoulder C.M.A. Office Visit 11/11/2016 Pulmonology And Melania J44.9 Chronic 10:00a Sleep Services Of MD Shelbie obstructive Liquid Sugar Melter pulmonary disease, unspecified R09.02 Hypoxemia F17.210 Nicotine dependence, cigarettes, uncomplicated Office Visit 11/03/2016 Neurosurgery Tim M47.812 Spondylosis w/o 1:20p Services Of Yoel Bradley M.D. myelopathy or radiculopathy, cervical region Z98.1 Arthrodesis status Office Visit 09/21/2016 12:30p Pulmonology And Melania R06.02 Shortness of Sleep Services Of MD Shelbie breath Liquid Sugar Melter J44.9 Chronic obstructive pulmonary disease, unspecified F17.210 Nicotine dependence, cigarettes, uncomplicated Z12.2 Encntr screen for malignant neoplasm of respiratory organs R05 Cough Office Visit 02/05/2016 11:01a [facility] Denita Lackey, R07.89 Other chest Assoc,timothy Laura pain Hospitalists J41.0 Simple chronic bronchitis F41.9 Anxiety disorder, unspecified Office Visit 02/04/2016 11:00a [facility] Denita Lackey, R07.89 Other chest Assoctimothy M.D. pain Hospitalists J41.0 Simple chronic bronchitis F41.9 Anxiety disorder, unspecified Office Visit 10/27/2015 [facility] Morelia Cerda D72.829 Elevated white 9:49a Assoc,timothy Beckett, [employer] blood cell Hospitalists count, unspecified J44.1 Chronic obstructive pulmonary disease w (acute) exacerbation R07.9 Chest pain, unspecified I10 Essential (primary) hypertension Office Visit 01/20/2015 Neurosurgery Eugenio Diego M54.2 Cervicalgia 2:00p Services Of Yoel Villegas M.D. Office Visit 10/29/2014 Pulmonology And Melania 786.05 Shortness Of 10:15a Sleep Services Of MD Pako Morfin Cma 496 COPD Airway Obstruction Chronic Not Class Elsewhere 305.1 Tobacco Use Disorder 307.49 Sleep Disorder Other Office Visit 10/25/2014 [facility] Luis Carlos Rivera, 578.9 Hemorrhage 1:33p Assoctimothy M.D. Gastrointestinal Hospitalists Tract Unspec Office Visit 04/06/2013 Orthopedic Kerry 715.36 Osteoarthrosis 2:45p Services Of [place] Raymond Localcindyd Not Spec C.M.A. Prime Or 2Ndy Lower Leg 727.51 Cyst Synovial Popliteal Space 844.1 Sprains & Strains Knee Medial Collateral Ligament Office Visit 10/20/2012 [facility] Paul Balderas 557.1 Vascular 9:27a Assoctimothy II, M.D. Insufficiency Of Hospitalists Intestine Chronic 578.9 Hemorrhage Gastrointestinal Tract Unspec 296.60 Bipolar I Disorder Current Mixed NOS 305.1 Tobacco Use Disorder Office Visit 10/19/2012 [facility] Lina 557.1 Vascular 9:25a Assoctimothy M.D. Insufficiency Of Hospitalists Intestine Chronic 578.9 Hemorrhage Gastrointestinal Tract Unspec 296.60 Bipolar I Disorder Current Mixed NOS 305.1 Tobacco Use Disorder Office Visit 10/18[facility]2012 [facility] 562.11 Diverticulitis 9:25a Assoctimothy M.D. Colon W/O Hospitalists Hemorrhage 578.9 Hemorrhage Gastrointestinal Tract Unspec 296.60 Bipolar I Disorder Current Mixed NOS 305.1 Tobacco Use Disorder Office Visit 12/21/2011 10:15a Roxanne Busch, 719.81 Joint Disorder Services Of M.D. Other Spec C.M.A. Shoulder Region Office Visit 12/10/2011 11:15a Roxanne Busch 726.61 Bursitis Services Of M.D. Tendinitis Pes C.M.A. Anserinus Office Visit 11/12/2011 11:30a Roxanne Busch 716.91 Arthropathy Unspec Services Of M.D. Shoulder Region C.M.A. 726.10 Bursae & Tendon Disorders Shoulder Region Unspec 719.41 Pain Joint Shoulder Region Office Visit 09/14/2011 10:00a Roxanne Busch 726.2 Shoulder Region Services Of C.M.A. M.D. Affections Other Not Elsewhere Class Office Visit 09/02/2011 9:15a Roxanne Busch 726.2 Shoulder Region Services Of C.M.A. M.D. Affections Other Not Elsewhere Class 716.91 Arthropathy Unspec Shoulder Region Office Visit 01/14/2011 9:00a Roxanne Busch 726.10 Bursae & Tendon Services Of C.M.A. M.D. Disorders Shoulder Region Unspec 716.91 Arthropathy Unspec Shoulder Region Office Visit 12/02/2010 8:30a Roxanne Busch 726.10 Bursae & Tendon Services Of C.M.A. M.D. Disorders Shoulder Region Unspec 716.91 Arthropathy Unspec Shoulder Region Office Visit 11/04/2010 Roxanne Busch 726.10 Bursae & Tendon 10:45a Services Of C.M.A. M.D. Disorders Shoulder Region Unspec Office Visit 09/30/2010 Roxanne Busch 726.10 Bursae & Tendon 8:00a Services Of C.M.A. M.D. Disorders Shoulder Region Unspec Office Visit 02/20/2009 [facility] Lina 372.30 Conjunctivitis 3:45a Assoc,timothy Palacios M.D. Unspec Hospitalists V72.83 Examination Preoperative Other Spec Office Visit 06/27/2008 2:15a [facility] Jewel 780.2 Syncope & Assoc,timothy Thomson M.D. Collapse Hospitalists Office Visit 06/26/2008 2:15a [facility] 780.2 Syncope & Assoc,timothy Thomson M.D. Collapse Hospitalists Office Visit 06/25/2008 3:30[facility] 780.2 Syncope & Assoc,timothy Thomson M.D. Collapse Hospitalists Office Visit 06/17/2008 4:00p DO Not Use Jodi Michelle, 719.41 Pain Joint Liquid Sugar Melter-Laura M.D., FACP Shoulder Region 782.3 Edema Office Visit 06/14/2008 3:30p DO Not Use Ame Torres, 719.42 Pain Joint Liquid Sugar Melter-Laura M.D. Upper Arm 300.00 Anxiety State Unspec Office Visit 06/06/2008 10:15a DO Not Use Ame Torres, 782.3 Edema Liquid Sugar Melter-Laura M.D. 300.00 Anxiety State Unspec Office Visit 05/24/2008 4:15p DO Not Use Lisa Varn, 461.9 Sinusitis Acute Liquid Sugar Melter-Laura N.P. Unspec 719.42 Pain Joint Upper Arm 719.41 Pain Joint Shoulder Region 401.1 Hypertension Benign Office Visit 01/17/2008 1:30p DO Not Use Brian 461.9 Sinusitis Acute Arvind Mccloud M.D. Unspec Office Visit 12/27/2007 10:15a DO Not Use Radalice 461.9 Sinusitis Acute Liquid Sugar MelterConstantine Mccloud M.D. Unspec 401.1 Hypertension Benign 780.52 Insomnia Unspecified Office Visit 08/28/2007 DO Not Use Brian 780.52 Insomnia 10:45a Arvind Mccloud M.D. Unspecified Office Visit 08/01/2007 DO Not Use Brian 780.52 Insomnia 11:30a Arvind Mccloud M.D. Unspecified 311 Depressive Disorder Not Elsewhere Spec Office Visit 07/19/2007 11:30a DO Not Use Ame Torres, 786.50 Pain Chest Liquid Sugar Melter-Laura M.DKamla Unspec 311 Depressive Disorder Not Elsewhere Spec Office Visit 04/26/2007 10:45a DO Not Use Ame Torres, 719.46 Pain Joint Liquid Sugar Melter-Laura M.D. 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 461.9 Sinusitis Acute Unspec 493.92 Asthma Unspec W/ Acute Exacerbation Office 02/27/2007 DO Not Use Radomski, 272.0 Hypercholesterolemia Visit 9:30a Arvind Mccloud M.D. Pure 401.1 Hypertension Benign 959.7 Injury Knee Leg Ankle & Foot Other & Unspec Office Visit 01/13/2007 11:30a DO Not Use Jodi Michelle, 380.10 Otitis Externa Arvind Laura, FACP Infective Unspec 466.0 Bronchitis Acute Office Visit 12/28/2006 3:45p DO Not Use Brian 461.9 Sinusitis Acute Arvind Mccloud M.D. Unspec 380.10 [...] Visit 11/04/2006 3:45p DO Not Use Ame Torres 729.5 Pain In Arvind Laura Limb 786.50 Pain Chest Unspec Office Visit 07/27/2006 DO Not Use Radalice, 401.1 Hypertension 9:30a Arvind Mccloud M.D. 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 Benign 722.4 Intervertebral Disc Degeneration Cervical 311 Depressive Disorder Not Elsewhere Spec 300.00 Anxiety State Unspec Office Visit 02/23/2006 10:15a DO Not Use Radomski, 461.9 Sinusitis Acute Arvind Mccloud M.D. Unspec [...] Arvind Mccloud M.D. Unspec Plan of Treatment 09/18/2018 - Melania Morfin MDJ44.9 Chronic obstructive pulmonary disease, unspecifiedFollow up:6 months SMG47.33 Obstructive sleep apnea (adult) ( pediatric)R09.02 TpnobfebrM79.210 Nicotine dependence, cigarettes, uncomplicated
[2018-10-15 17:27] VITALS: BP 115/88
--- NOTE | 2018-10-15 17:39 | UC ---
Hand/Wrist HPI - HPI Summary HPI Summary: 57-year-old woman comes in with a chief complaint of right wrist pain. Started about a week ago. No known injury. Patient cannot think of any new activities that may contribute to an overuse injury. The worst pain is on the thenar aspect of the wrist. No weakness or numbness. Pain is worse with range of motion of the wrist. - History Of Current Complaint Chief Complaint: UCUpperExtremity Stated Complaint: RIGHT WRIST Time Seen by Provider: 10/15/18 17:32 Hx Last Menstrual Period: MENOPAUSE Pain Intensity: 7 - Allergies/Home Medications Allergies/Adverse Reactions: Allergies Allergy/AdvReac Type Severity Reaction Status Date / Time azithromycin Allergy Severe Diarrhea Verified 10/15/18 17:26 codeine Allergy Severe Difficulty Verified 10/15/18 17:26 Breathing, facial swelling Penicillins Allergy Severe Rash, Verified 10/15/18 17:26 facial swelling Sulfa (Sulfonamide Allergy Severe Rash And Verified 10/15/18 17:26 Antibiotics) Itching tetracycline Allergy Severe Rash Verified 10/15/18 17:26 levofloxacin [From Levaquin] AdvReac Severe Anaphylatic Verified 10/15/18 17:26 Shock Bees Allergy Severe Anaphylatic Uncoded 10/15/18 17:26 Shock Home Medications: Home Medications Ibuprofen TAB* [Advil TAB*] 600 mg PO PRN 10/15/18 [History] PMH/Surg Hx/FS Hx/Imm Hx Previously Healthy: Yes Cardiovascular History: Hypertension Respiratory History: COPD Psychological History: Bipolar Disorder Other History Of: Negative For: Anticoagulant Therapy - Surgical History Surgical History: Yes Surgery Procedure, Year, and Place: fusion cervical spine(PART OF METAL REMOVED BUT DOES STILL HAVE METAL IN NECK),. BILATERAL SHOULDER REPAIRS 4 YRS AGO,. laparoscopy of bowel,. both elbows PINCHED NERVES REPAIRED. UTERINE POLYP REMOVED-CARPAL TUNNEL RIGHT WRIST. LEFT WRIST DECOMPRESSION - Family History Known Family History: Positive: Cardiac Disease - father [place] >55 y/o, Hypertension, Respiratory Disease - COPD in mother - Social History Alcohol Use: None Alcohol Amount: 2 per year Substance Use Type: None Smoking Status (MU): Current Every Day Smoker Type: Cigarettes Amount Used/How Often: 1/2 PPD Length of Time of Smoking/Using Tobacco: since age 17 Have You Smoked in the Last Year: Yes - "I smoked my last cigarette this morning 03/16/16" "I have patches" When Did the Patient Quit Smoking/Using Tobacco: will be stopping in a couple days has gum and patches Household Exposure Type: Cigarettes - Immunization History Most Recent Influenza Vaccination: 11/2015 Most Recent Tetanus Shot: last 10 years Most Recent Pneumonia Vaccination: none Review of Systems All Other Systems Reviewed And Are Negative: Yes Constitutional: Positive: Negative Skin: Positive: Negative Eyes: Positive: Negative ENT: Positive: Negative Respiratory: Positive: Negative Cardiovascular: Positive: Negative Gastrointestinal: Positive: Negative Motor: Positive: Negative Neurovascular: Positive: Negative Musculoskeletal: Positive: Other: - SEE HPI Neurological: Positive: Negative Psychological: Positive: Negative Is Patient Immunocompromised?: No Physical Exam Triage Information Reviewed: Yes Appearance: Well-Appearing, No Pain Distress, Well-Nourished Vital Signs: Initial Vital Signs Temp 97.7 F 10/15/18 17:22 Pulse 73 10/15/18 17:22 Resp 16 10/15/18 17:22 BP 115/88 10/15/18 17:22 Pulse Ox 92 10/15/18 17:22 Vital Signs Reviewed: Yes Eye Exam: Normal Eyes: Positive: Conjunctiva Clear Neck: Positive: Supple Respiratory: Positive: No respiratory distress Musculoskeletal: Positive: Other: Neurological: Positive: Alert Psychological: Positive: Age Appropriate Behavior Skin Exam: Normal Hand/Wrist Course/Dx - Course Course Of Treatment: Mortgage Accounting Clerk: Tamara Hickman S ([id number]) Electrician Aircraft: EARNESTINE (EARNESTINE) Report Date: 10/15/2018 17:33:00 Report Status: Final Start of Report Content Patient Name: VALENTIN NICHOLAS Medical Record#: [id number] Ordering Physician: Taz Michael MD Acct.#: [id number] : Age: 57 Sex: F Location: [facility] Exam Date: 10/15/18 1733 ADM Status: REG ER Order Information: WRIST RIGHT 3+ VWS Accession Number: [id number] CPT: 38607 Indication: Indication: Right wrist pain. 4 views of the right wrist demonstrates no fracture or dislocation. Degenerative changes of the first carpal metacarpal joint is noted. No other fractures are noted. IMPRESSION: Degenerative changes of the first carpal metacarpal joint and the second carpal metacarpal joint. <Electronically signed by Tamara Hickman MD in OV> 10/15/181751 Dictated By: Tamara Hickman MD Dictated Date/Time: 10/15/181750 Transcribed Date/ Time: 10/15/181750 Copy to: CC:Yovana Montoya MD; Taz Michael MD Imaging - [facility] [address] [place] [address] ph ([phone]) ph ([phone]) ph ([phone]) End of Report Content ========= I discussed the x-rays with the patient. Patient was placed a thumb spica splint by nursing patient neurovascular intact after placement of the thumb spica splint. Plan is to continue the anti-inflammatory ibuprofen. Also ice it. Follow-up with sports medicine or orthopedics. - Differential Dx/Diagnosis Provider Diagnosis: Right wrist tendinitis Discharge ED - Sign-Out/Discharge Documenting (check all that apply): Patient Departure All imaging exams completed and their final reports reviewed: Yes - Discharge Plan Condition: Stable Disposition: HOME Patient Education Materials: Wrist Injury (ED), Tendinitis (ED) Referrals: Yovana Montoya MD [Primary Care Provider] - Kerry Raymond MD [Medical Doctor] - [facility] [Provider Group] Additional Instructions: FOLLOW UP WITH SPORTS MEDICINE OR ORTHOPEDICS IF NOT COMPLETELY IMPROVED. GET RECHECKED SOONER IF YOUR CONDITION WORSENS OR ANY QUESTIONS OR CONCERNS. - Billing Disposition and Condition Condition: STABLE Disposition: Home
== END 2018-10-15 18:19 | disposition home or self-care (01) ==
LOC: UCEAST 16:54
DX: M77.9 Enthesopathy, unspecified (principal); I10 Essential (primary) hypertension; F17.210 Nicotine dependence, cigarettes, uncomplicated
CPT/HCPCS: 99213; G0463

== ENCOUNTER 2019-01-18 13:36 | Emergency (ER) | payer MEDICARE, MEDICAID ==
--- NOTE | 2019-01-18 13:38 | UC ---
Eye Complaint HPI - HPI Summary HPI Summary: 58 yo female presents with URI symptoms. She tells me that she has a history of COPD and gets exacerbations from time to time, but has been doing really well since using Breo and Incruse. She says that she has not been using any nebulizers as her doctor told her not too with her new inhalers. Over the last 4 -5 days she has been having a productive cough with green phlegm and feels that her chest is tight when she breathes. Also over the last 3 days she has had redness and swelling to her right lower eyelid. Seems to be improving, but is concerned about it. Denies fever, chills, sore throat, sinus symptoms, feeling short of breath, chest pain, n/v. - History of Current Complaint Stated Complaint: EYE IRRITATION Time Seen by Provider: 01/18/19 13:37 Hx Obtained From: Patient Hx Last Menstrual Period: MENOPAUSE Onset/Duration: Gradual Onset Severity Initially: Mild Severity Currently: Mild Pain Intensity: 3 Pain Scale Used: 0-10 Numeric - Allergies/Home Medications Allergies/Adverse Reactions: Allergies Allergy/AdvReac Type Severity Reaction Status Date / Time azithromycin Allergy Severe Diarrhea Verified 01/18/19 13:41 codeine Allergy Severe Difficulty Verified 01/18/19 13:41 Breathing, facial swelling Penicillins Allergy Severe Rash, Verified 01/18/19 13:41 facial swelling Sulfa (Sulfonamide Allergy Severe Rash And Verified 01/18/19 13:41 Antibiotics) Itching tetracycline Allergy Severe Rash Verified 01/18/19 13:41 levofloxacin [From Levaquin] AdvReac Severe Anaphylatic Verified 01/18/19 13:41 Shock Bees Allergy Severe Anaphylatic Uncoded 01/18/19 13:41 Shock PMH/Surg Hx/FS Hx/Imm Hx Endocrine History: Dyslipidemia Cardiovascular History: Hypertension Respiratory History: COPD Psychological History: Bipolar Disorder Other History Of: Negative For: Anticoagulant Therapy - Surgical History Surgical History: Yes Surgery Procedure, Year, and Place: fusion cervical spine(PART OF METAL REMOVED BUT DOES STILL HAVE METAL IN NECK),. BILATERAL SHOULDER REPAIRS 4 YRS AGO,. laparoscopy of bowel,. both elbows PINCHED NERVES REPAIRED. UTERINE POLYP REMOVED-CARPAL TUNNEL RIGHT WRIST. LEFT WRIST DECOMPRESSION - Family History Known Family History: Positive: Cardiac Disease - father [place] >55 y/o, Hypertension, Respiratory Disease - COPD in mother - Social History Lives: With Family Alcohol Use: None Alcohol Amount: 2 per year Substance Use Type: Marijuana Smoking Status (MU): Former Smoker Type: Cigarettes Amount Used/How Often: 1/2 PPD Length of Time of Smoking/Using Tobacco: since age 17 Have You Smoked in the Last Year: Yes - "I smoked my last cigarette this morning 03/16/16" "I have patches" When Did the Patient Quit Smoking/Using Tobacco: will be stopping in a couple days has gum and patches Household Exposure Type: Cigarettes - Immunization History Most Recent Influenza Vaccination: 11/2015 Most Recent Tetanus Shot: last 10 years Most Recent Pneumonia Vaccination: none Review of Systems All Other Systems Reviewed And Are Negative: No Constitutional: Positive: Negative Skin: Positive: Negative Eyes: Positive: Drainage, Eye Redness ENT: Positive: Negative Respiratory: Positive: Negative Cardiovascular: Positive: Negative Neurological: Positive: Negative Psychological: Positive: Negative Physical Exam - Summary Physical Exam Summary: GENERAL: NAD. WDWN. No pain distress. SKIN: No rashes, sores, lesions, or open wounds. HEENT: Head: AT/NC Eyes: EOM intact. PERRLA. RIGHT EYE: Mild scleral injection. Conjunctiva with mild erythema and inflammation on lower lid. No discharge. Ears: Hearing grossly normal. TMs intact, no bulging, erythema, or edema. Nose: Nasal mucosa pink and moist. NTTP maxillary and frontal sinus. Throat: Posterior oropharynx without exudates, erythema, or tonsillar enlargement. Uvula midline. NECK: Supple. Nontender. No lymphadenopathy. CHEST: Mild wheezing throughout. No r/r. No accessory muscle use. Breathing comfortably and in no distress. CV: RRR. Pulses intact. Cap refill <2seconds NEURO: Alert. PSYCH: Age appropriate behavior. Triage Information Reviewed: Yes Vital Signs: Vital Signs: Temp Pulse Resp BP Pulse Ox 99.8 F 96 22 128/69 92 01/18/19 13:45 01/18/19 13:45 01/18/19 13:45 01/18/19 13:45 01/18/19 13:45 Vital Signs Reviewed: Yes Diagnostics - Radiology CXR Radiology Interpretation Completed By: Radiologist Summary of Radiographic Findings: IMPRESSION: #. Stigmata of obstructive lung disease. No acute pulmonary or cardiac process evident. Eye Complaint Course/Dx - Course Course Of Treatment: CXR as above. Looking at past visits her baseline O2% is around 92-94%. Suspect COPD exacerbation. Will rx for prednisone, anbx eye drops, and ceftin. Noted PCN allergy - pt states this was a rash a long time ago. Looking at her old visits it appears she has taken ceftin in the past with no noted problems - pt does not remember this, but says it could be possible - Differential Dx/Diagnosis Provider Diagnosis: COPD exacerbation Discharge ED - Sign-Out/Discharge Documenting (check all that apply): Patient Departure All imaging exams completed and their final reports reviewed: Yes - Discharge Plan Condition: Stable Disposition: HOME Prescriptions: Cefuroxime 500 MG(NF) 500 mg PO BID #14 tab Polymyx/Trimethoprim OPTH* [Polytrim OPHTH*] 1 drop RIGHT EYE TID 7 Days #1 btl predniSONE TAB* [Deltasone 20 MG TAB*] 40 mg PO DAILY #10 tab Patient Education Materials: COPD (Chronic Obstructive Pulmonary Disease) (ED) , Conjunctivitis (ED) Referrals: Yovana Montoya MD [Primary Care Provider] - Additional Instructions: If you develop a fever, shortness of breath, chest pain, new or worsening symptoms - please call your PCP or go to the ED immediately. - Billing Disposition and Condition Condition: STABLE Disposition: Home
--- OUTSIDE RECORDS SUMMARY | 2019-01-18 13:42 | XMS REPORT | Continuity of Care Document ---
:1960 External Reference #:[id number] Author Name Haroldo Tariq MD (transmitted by agent of provider Jennifer Jc) Address [address] [place] [address] Care Team Providers Name Role Phone Yovana Montoya MD - Internal Care Team Information Executive [employer] Medicine Problems Active Problems Provider Date Dyspnea Melania Morfin MD Onset: 10/29/2014 Chronic obstructive lung disease Melania Morfin MD Onset: 10/29/2014 Tobacco user Melania Morfin MD Onset: 10/29/2014 Sleep disorder Melania Morfin MD Onset: 10/29/2014 Neck pain Eugenio Villegas M.D. Onset: 01/20/2015 Cervical spondylosis without myelopathy Tim Bradley M.D. Onset: 11/03/2016 Closed fracture of phalanx of foot Gus Godinez MD Onset: 11/16/2017 Social History Type Date Description Comments Sex Unknown Tobacco Use Start: Unknown Currently smokes 1-5 [...] ready to quit smoking Smoking Status Reviewed: 01/09/19 Patient is getting ready to quit smoking Exercise Type/Frequency Does not exercise Allergies, Adverse Reactions, Alerts Active Allergies Reaction Severity Comments Date Sulfa 11/02/2011 Codeine 10/29/2014 Levofloxacin 10/29/2014 Penicillin 10/29/2014 Sulfa Antibiotics 10/29/2014 Tetracycline 10/29/2014 Zithromax 10/29/2014 Buspirone 10/29/2014 Tetracycline 10/29/2014 Bee Sting Anaphylaxis Severe 08/11/2017 Medications Active Medications SIG Qnty Indications Ordering Date Provider Cpap Supplies Pls provide 1units G47.33 Melania Morfin, 09/22/2018 necessary pap supplies, mask to fit, tubing ,head gear, filters Breo Ellipta inhale 1 puff by 60units Mealnia Morfin, 12/26/2017 mouth once daily 200-25mcg/Inh Aerosol Voltaren apply 4 gm to the 900gm M25.561 Brock F 07/12/2017 1% Gel affected area 4 MD Vickie times a day as needed for pain Oxygen please use o2 at 1units J44.9 Melania Morfin, 10/27/2016 Misc 2l/min with MD hernandez. pls provide pt with simply [employer] portable concentrator R09.02 Incruse Ellipta inhale one puff by 30units Melania Morfin [...] as directed Unknown 10/28/2014 0.3mg/0.3ML Solution Auto-Inject Ventolin HFA 2 puffs by mouth four Unknown 108(90Base) times a day as needed mcg/Act Aerosol Detrol LA take one capsule by Unknown 4mg Caps ER 24HR mouth every hs Mirtazapine one tab at hs Unknown 7.5mg Tablets Latuda 1 by mouth every, day Unknown 40mg Tablets after dinner Embeda 1 by mouth every day Unknown 20-0.8mg Capsules ER Tizanidine HCL take 1 tablet by Unknown 4mg Tablets mouth three times a day if needed Medications Administered in Office Medication SIG Qnty [...] Eliu Busch M.D. 12/02/2010 Injection Depomedrol 80MG Eliu Busch M.D. 11/04/2010 Injection Immunizations CPT Code Status Date Vaccine Lot # [id number] Given 01/24/2008 Influenza Virus 3Yrs & Over 05862 Given 01/24/2008 Influenza Virus 3Yrs & Over 41410 Given 04/26/2007 Tdap - Tetanus/Diptheria/Acellular Pertussis 81782 Given 12/06/2006 Influenza Virus 3Yrs & Over 83043 Given 12/03/2005 Influenza Virus 3Yrs & Over Vital Signs Date Vital Result Comment 01/09/2019 9:31am Height 60 inches 5'0" Weight 174.25 lb Heart Rate 92 /min BP Systolic 124 mmHg BP Diastolic 80 mmHg Respiratory Rate 18 /min Body Temperature 98.0 F Pain Level 8 BMI (Body Mass Index) 34.0 kg/m2 09/18/2018 10:11am Height 60 inches 5'0" Weight 180.38 lb Heart Rate 72 /min BP Systolic Sitting 114 mmHg Lue regular cuff BP Diastolic Sitting 70 mmHg Lue regular cuff Respiratory Rate 14 /min O2 % BldC Oximetry 92 % BMI (Body Mass Index) 35.2 kg/m2 Results Description No Information Available Procedures Date Code Description Status 01/09/2019 66819 Inject Tendon Sheath Or Ligament Aponeurosis Eg Plantar Completed Fascia Medical Devices Description No Information Available Encounters Type Date Location Provider Dx Diagnosis Office Visit 09/18/2018 Pulmonology And Melania Morfin J44.9 Chronic obstructive 10:45a Sleep Services Of pulmonary disease, Aged Or Disabled Carer unspecified G47.33 Obstructive sleep apnea (adult) (pediatric) R09.02 Hypoxemia F17.210 Nicotine dependence, cigarettes, uncomplicated Assessments Date Code Description Provider 01/09/2019 M65.4 Radial styloid tenosynovitis [de Quervain] Haroldo Tariq MD 09/18/2018 J44.9 Chronic obstructive pulmonary disease, Melania Morfin MD unspecified 09/18/2018 G47.33 Obstructive sleep apnea (adult) (pediatric) Melania Morfin MD 09/18/2018 R09.02 Hypoxemia Melania Morfin MD 09/18/2018 F17.210 Nicotine dependence, cigarettes, uncomplicated Melania Morfin MD Plan of Treatment Future Appointment(s):02/20/2019 9:45 am - Haroldo Tariq MD at [facility]2019 - Haroldo Tariq MDM65.4 Radial styloid tenosynovitis [de Quervain]Follow up:Follow up: 6 weeks Functional Status Description No Information Available Mental Status Description No Information Available Referrals Description No Information Available
--- OUTSIDE RECORDS SUMMARY | 2019-01-18 13:42 | XMS REPORT | Continuity of Care Document ---
:1960 External Reference #:[id number] Author Name Yovana Montoya M.D. Address [address] [place] [address] Care Team Providers Name Role Phone Eliu Busch MD - Orthopaedic Surgery Care Team Information Photographer [facility] - Hospitalist Care Team Information Photographer [phone] [facility] - Care Team Information Photographer [phone] Gastroenterology Jolie Miranda - Neurology Care Team Information Photographer [phone] Wesley Valle MD - Infectious Care Team Information Photographer [phone] Disease [facility] - [facility] Supp[facility] Care Team Information Photographer Tim Bradley MD - Neurological Care Team Information Photographer [phone] Surgery Brock Johnston MD - Orthopaedic Care Team Information Photographer Surgery Michelle Rashid ([place] [facility]) - Care Team Information Photographer [phone] Surgery of the Hand Problems Active Problems [...] Now Pack Daily 1/2 ppd as 10/2012. Quit as of TuesdayDec 17 Tobacco Use Start: Unknown End: Former Cigarette Smoker Unknown Smoking Status Reviewed: 12/22/18 Former Cigarette Smoker ETOH Use Rare 2 drinks a year. [...] Medications SIG Qnty Indications Ordering Date Provider Pravastatin Sodium take one tablet by 30tabs E78.49 Yovana Henson 07/14/2018 mouth one time at [place] 10mg Tablets night Detrol LA 1 by mouth daily. 90caps Yovana Henson 11/09/2016 4mg Caps ER [place] 24HR Breo Ellipta 1 puff a day only. 60units R07.82 Yovana Henson 08/20/2016 [place] 200-25mcg/Inh Aerosol Ventolin HFA 2 puffs every 4 24gm R06.02 Mariola Kelsey 07/08/2016 times a day as ALEXANDRIA Valenzuela 108(90Base) mcg/Act needed Aerosol Fluticasone 1 puff each nostril 16units Yovana Henson 10/28/2014 Propionate up to bid. [place] 50mcg/Act Suspension Epipen 2-Kai use as directed 2units Mariola Kelsey 06/21/2013 ALEXANDRIA Valenzuela 0.3mg/0.3ML Solution Auto-Inject Amlodipine Besylate take 1 tablet by 90tabs I10 Lobito Dayna 08/10/2011 mouth once daily MD Chandu 5mg Tablets Clonazepam Take 1 Tablet Up To 90tabs F41.9 Yovana Henson 06/28/2011 0.5mg 3 Times Daily as [place] Tablets Needed Lisinopril take 1 tablet by 90tabs Yovana Henson 06/28/2011 20mg mouth once daily [place] Tablets Equate Women's 1 po daily Yovana Henson 05/13/2010 Multivitamin From [place] [facility] Oxycodone HCL 1 by mouth three Unknown 10mg times a day as Tablets needed pain Morphine Sulfate take 1 tablets by Unknown 15mg mouth during night Tablets for breakthrough pain Latuda 1 by mouth every at Unknown 80mg Tablets night Tizanidine HCL take one by mouth Unknown 4mg up to 3 times per Capsules day as needed for pain Mirtazapine Unknown Tablets Incruse Ellipta Unknown 62.5mcg/Inh Aerosol Ranitidine 150 1 by mouth twice a 180tabs Yovana Henson Maximum Strength day [place] 150mg Tablets Sertraline HCL 2 PO qd Unknown 100mg Tablets Trazodone HCL take 2 tablet by Unknown 100mg mouth at bedtime Tablets History Medications Clarithromycin ER 1 by mouth 20tabs J01.90 Yovana Henson 07/14/2018 - 500mg twice daily [place] 12/22/2018 Tablets ER 24HR Medications Administered in Office Medication SIG Qnty Indications Ordering Provider Date TB Intradermal Test Yovana Montoya M.D. 12/06/2016 Injection Immunizations CPT Code Status Date Vaccine Lot # [id number] Given 12/04/2018 Influenza vac quadrivalent preservative free 6 months and up 41702 Given 12/04/2018 Influenza vac quadrivalent preservative free 6 months and up 36263 Given 11/11/2017 Influenza Vac, Quadrivalent, Slit Virus, Im [id number] 25098 Given 11/25/2016 Influenza Vac, [place] [address] Given 08/20/2016 Tdap Tetanus, W Pertussis [id number] 46359 Given 11/30/2015 Influenza Vac, [place] [address] Given 11/12/2014 Influenza Vac, [place] [address] Given 12/20/2013 DO Not Use Split Influenza Virus Vaccine 98318 Given 11/21/2012 DO Not Use Split Influenza Virus Vaccine 05814 Given 11/13/2012 Pneumococcal Immunization [id number] 61302 Given 12/10/2011 DO Not Use Split Influenza Virus Vaccine 33810 Given 11/05/2010 DO Not Use Split Influenza Virus Vaccine 58961 Given 11/24/2009 DO Not Use Split Influenza Virus Vaccine [id number] Vital Signs Date Vital Result Comment 12/22/2018 2:21pm BP Systolic 124 mmHg BP Diastolic 88 mmHg Heart Rate 96 /min Body Temperature 98.8 F Respiratory Rate 16 /min Height 60 inches 5'0" measured Weight 174.00 lb BMI (Body Mass Index) 34.0 kg/m2 09/21/2018 9:35am BP Systolic 130 mmHg BP Diastolic 78 mmHg Heart Rate 76 /min Body Temperature 98.0 F Respiratory Rate 18 /min Weight 178.00 lb Results Test Date Facility Test Result H/L Range Note Laboratory test finding 09/04/2018 Abhijeet Olmedo([facility]) CK 77 U/L 26-140 1 Comprehensive Metabolic 09/04/2018 Abhijeet Olmedo([facility]) Sodium 139 mEq/L 134-149 Prof Potassium 4.2 [...] GFR >60 ml/min/1.73m^ >=60 Lipid Profile 09/04/2018 Abhijeet Olmedo([facility]) Cholesterol 184 mg/dL 120- 200 Triglycerides 373 mg/dL High 30-200 HDL Cholesterol 44 mg/dL 30-85 LDL (Calculated) 65 CALC 0-129 VLDL Cholesterol 75 mg/dL High 0-50 HDL Risk Factor 4.2 CALC 0.0-4.4 Laboratory test 09/04/2018 Abhijeet Olmedo([facility]) LDL, Direct 83 mg/dL 0- 130 finding Laboratory test 06/26/2018 Abhijeet Olmedo([facility]) TSH 1.83 mIU/L 0.50-6.00 finding Vitamin D25 19 Low 30-100 CBC Electronic a 06/26/2018 Abhijeet Olmedo([facility]) WBC 11.3 x10^3/UL High 4.0-10.0 RBC 4.89 x10^6/UL 3.93-6.00 HGB 14.4 g/dL 12.0-17.0 HCT 43 % 35-50 MCV 88.8 fL 80.0-95.0 MCH 29.4 pg 25.6-32.2 MCHC 33.2 g/dL 32.2-36.0 RDW-CV 14.2 % 11.6-14.4 PLT 301 x10^3/UL 163-400 MPV 8.8 fL Low 9.4-12.4 Darrion# 6.56 x10^3/UL High 1.56-6.13 Lymph# 3.38 x10^3/UL 1.18-3.74 Grant# 0.88 x10^3/UL High 0.24-0.82 Eos # 0.4 x10^3/UL 0.0-0.5 Baso # 0.03 x10^3/UL 0.01-0.08 Darrion% 58.4 % 34.0-70.0 Lymph % 30.0 % 20.0-52.0 Grant% 7.8 % 5.0-12.0 Eos% 3.1 % 0.7-7.0 Baso% 0.3 % 0.1-1.2 Comprehensive Metabolic 06/26/2018 Jha Shara([facility]) Sodium 141 mEq/L 134-149 Prof Potassium 4.0 [...] >60 ml/min/1.73m^ >=60 Lipid Profile 06/26/2018 Abhijeet Olmedo([facility]) Cholesterol 242 mg/dL High 120-200 Triglycerides 284 mg/dL High 30-200 HDL Cholesterol 54 mg/dL 30-85 LDL (Calculated) 131 CALC High 0-129 VLDL Cholesterol 57 mg/dL High 0-50 HDL Risk Factor 4.5 CALC High 0.0-4.4 Laboratory test 06/26/2018 Abhijeet Olmedo([facility]) LDL, Direct 136 mg/dL High 0-130 finding 1 FASTING august 2018. Procedures Date Code Description Status 09/26/2018 [id number] Mammogram Completed 09/15/2018 [id number] Mammogram Completed 05/16/2017 [id number] Mammogram Completed 08/15/2015 [id number] Colonoscopy Completed 06/10/2015 [id number] Mammogram Completed 04/18/2014 [id number] Mammogram Completed 07/04/2012 [id number] Mammogram Completed 03/31/2011 [id number] Mammogram Completed Medical Devices Description No Information Available Encounters Type Date Location Provider Dx Diagnosis Office Visit 09/21/2018 [facility] Office Yovana Henson E78.2 Mixed hyperlipidemia 9:40a [place] I10 Essential (primary) hypertension Z12.31 Encntr screen mammogram for malignant neoplasm of breast Office Visit 07/14/2018 11:00a [facility] Office Yovana Henson J01.90 Acute sinusitis, [place] unspecified E78.49 Other hyperlipidemia E55.9 Vitamin D deficiency, unspecified F41.9 Anxiety disorder, unspecified E78.1 Pure hyperglyceridemia Office Visit 06/23/2018 9:40a [facility] Office Yovana Henson I65.23 Occlusion and [place] stenosis of bilateral carotid arteries E78.49 Other hyperlipidemia E55.9 Vitamin D deficiency, unspecified J44.9 Chronic obstructive pulmonary disease, unspecified M54.5 Low back pain Assessments Date Code Description Provider 12/22/2018 Z00.01 Encounter for general adult medical Yovana Montoya M.D. examination with abnormal findings 12/22/2018 E78.2 Mixed hyperlipidemia Yovana Montoya M.D. 12/22/2018 I10 Essential (primary) hypertension Yovana Montoya M.D. 12/22/2018 E55.9 Vitamin D deficiency, unspecified Yovana Montoya M.D. 12/22/2018 F41.9 Anxiety disorder, unspecified Yovana Montoya M.D. 12/22/2018 J44.9 Chronic obstructive pulmonary disease, Yovana Montoya M.D. unspecified 12/22/2018 G89.4 Chronic pain syndrome Yovana Montoya M.D. 12/22/2018 R10.11 Right upper quadrant pain Yovana Montoya M.D. 09/21/2018 E78.2 Mixed hyperlipidemia Yovana Montoya M.D. [...] M54.5 Low back pain Yovana Montoya M.D. Plan of Treatment 12/22/2018 - Yovana Montoya M.D.Z00.01 Encounter for general adult medical examination with abnormal findingsComments:You are in good general health. I recommend regular physical exams with attention to good nutrition and exercise, eye exams every other year, and dental exams twice yearly. Goals:2 fresh fruits daily3 helpings of fresh green and multicolored vegetablesEat from the whole color spectrum. 40-60 Oz water dailyMOVE YOUR BODY. Bodies were made to be moved. exercise 30 minutes at least 4-5 times weeklyFollow up:next week for pap and breast exam.E78.2 Mixed hyperlipidemiaNew Labs:CCC-Comp+Lipid ([facility]), Ordered: 12/22/18Comments:ok to go off cholesterol meds - pravastatin and see where it lands.go off for amonth. Will get fasting bloodwork then,return 2 weeks later to review labs and pap and breast.Follow up:6 weeks.I10 Essential ( primary) [id number] Vitamin D deficiency, unspecifiedNew Labs:Vitamin D, 25Hydroxy([facility]/LC, Ordered: 12/22/18F41.9 Anxiety disorder, unspecifiedComments: Well controlled. Continue present meds.J44.9 Chronic obstructive pulmonary disease, unspecifiedComments:stable. Will probably improve now that you've stopped cigarettes.CONGRATULATIONS ON STOPPING CIGARETTES.G89.4 Chronic pain syndromeComments:CONTINUE with pain clinic and injections.R10.11 Right upper quadrant painComments:wait and see about the abdominal pain. YOu'll keep track of it.AllComments:Medication Management Patient Understands medications she's taking? Yes No Are there Barriers to Adherence? Yes No Has the patient been asked about herbal supplements and therapies, and OTC meds? Yes No Functional Status Description No Information Available Mental Status Description No Information Available Referrals Description No Information Available
[2019-01-18 13:52] VITALS: BP 128/69
== END 2019-01-18 14:49 | disposition home or self-care (01) ==
LOC: UCEAST 13:36
DX: J44.1 Chronic obstructive pulmonary disease with (acute) exacerbation (principal); I10 Essential (primary) hypertension; J44.9 Chronic obstructive pulmonary disease, unspecified; H57.89 Other specified disorders of eye and adnexa; Z88.1 Allergy status to other antibiotic agents; Z88.5 Allergy status to narcotic agent; Z88.0 Allergy status to penicillin; Z88.2 Allergy status to sulfonamides; Z88.8 Allergy status to other drugs, medicaments and biological substances; Z91.030 Bee allergy status; Z87.891 Personal history of nicotine dependence
CPT/HCPCS: 71046; 99212; G0463

== ENCOUNTER 2019-02-11 14:36 | Emergency (ER) | payer MEDICARE, MEDICAID ==
--- OUTSIDE RECORDS SUMMARY | 2019-02-11 14:41 | XMS REPORT ---
:1960 Author Organization [facility] Care Team Providers Name Role Phone Mary Vaughan Primary Care Physician Unavailable Allergies, Adverse Reactions, Alerts Allergy Code CodeSystem Reaction Severity Criticality Status Start Substance Date nkda Moderate Active Medications Medication Medication Medication Start Stop Route Dose Status Fill Code CodeSystem Date Date Instructions Latuda 9749025 RxNorm 2019- oral 80 mg active for 30 -20 12-19 tablet day(s) sertraline 373508 RxNorm 2019- oral 100 mg completed for 30 5- 08-19 tablet day(s) sertraline 273700 RxNorm 2019- oral 100 mg completed for 30 8-02 01-27 tablet day(s) Latuda 3754341 RxNorm 2019- oral 80 mg completed for 30 5- 06-18 tablet day(s) sertraline 449134 RxNorm 0 2019- oral 100 mg 2 completed 2 tablet - 11-17 tablet once a day once a for 30 day(s) day mirtazapine 509047 RxNorm 2019- oral 7.5 mg 1 completed Take 1 tablet - 12-09 tablet by mouth at at bedtime for bedtime 30 day(s) trazodone 875955 RxNorm 2018-02 2020- oral 100 mg active for 30 0-24 01-22 tablet day(s) sertraline 750435 RxNorm 2019- oral 100 mg completed for 30 2-22 08-19 tablet day(s) Latuda 1230902 RxNorm 0 2019- oral 80 mg completed for 30 6-18 09-16 tablet day(s) mirtazapine 869336 RxNorm 20190 2019- oral 7.5 mg completed for 30 5-21 09-10 tablet day(s) trazodone 853190 RxNorm 2019- oral 150 mg completed for 30 3-14 08-19 tablet day(s) trazodone 181297 RxNorm 2018- oral 150 mg completed for 30 -04 12-24 tablet day(s) mirtazapine 725776 RxNorm 2018- oral 7.5 mg completed for 30 3-14 08-19 tablet day(s) sertraline 661317 RxNorm 2018-02- oral 100 mg active for 30 03-12- tablet day(s) Latuda 2980531 RxNorm 2018- oral 60 mg completed for 30 04-07 05-21 tablet day(s) Relevant diagnostic tests/laboratory data Narrative No Information Procedures Procedure Code CodeSystem Target Date of Status Service Device Device Device Name Site Procedure Delivery Code Name UID Location Psychotherap [id number] SNOMED-CT () 2018-12-28 complete Mental y, 45 04 d Health- minutes with [address], [id number] Psychotherap [id number] SNOMED-CT () 2018-10-26 complete Mental y, 45 04 d Health- minutes with [facility], [id number] [phone] Psychotherap [id number] SNOMED-CT () 2018-11-02 complete Mental y, 45 04 d Health- minutes with [facility] patient [address], [id number] Psychotherap [id number] SNOMED-CT () 2018-11-09 complete Mental y, 45 04 d Health- minutes with [facility], [id number] Psychotherap [id number] SNOMED-CT () 2018-11-23 complete Mental y, 45 04 d Health- minutes with [facility], [id number] Psychotherap [id number] SNOMED-CT () 2018-05-29 complete Mental y, 45 04 d Health- minutes with [facility] patient [address], [id number] Psychotherap [id number] SNOMED-CT () 2018-09-06 complete Mental y, 45 04 d Health- minutes with [address], [id number] Psychotherap [id number] SNOMED-CT () 2018-08-23 complete Mental y, 45 04 d Health- minutes with [address], [id number] Psychotherap [id number] SNOMED-CT () 2018-09-20 complete Mental y, 45 04 d Health- minutes with [address], [id number] Psychotherap [id number] SNOMED-CT () 2018-10-02 complete Mental y, 45 04 d Health- minutes with [address], [id number] [id number] Psychotherap [id number] SNOMED-CT () 2018-06-13 complete Mental y, 45 04 d Health- minutes with [address], [id number] Psychotherap [id number] SNOMED-CT () 2018-06-20 complete Mental y, 45 04 d Health- minutes with [address], [id number] Psychotherap [id number] SNOMED-CT () 2018-07-04 complete Mental y, 45 04 d Health- minutes with [address], [id number] [id number] Psychotherap [id number] SNOMED-CT () 2018-08-01 complete Mental y, 45 04 d Health- minutes with [address], [id number] [id number] Psychotherap [id number] SNOMED-CT () 2018-08-15 complete Mental y, 45 04 d Health- minutes with [address], [id number] Psychotherap [id number] SNOMED-CT () 2018-08-30 complete Mental y, 45 04 d Health- minutes with [address], [id number] Office or [id number] SNOMED-CT () 2018-10-02 complete Mental other 7 d Health- outpatient Araceli visit for [address], established [id number] patient, [id number] which requires at least 2 of these 3 varghese components: An expanded problem focused history; An expanded problem focused examination; Medical decision making of [facility] Office [place] [id number] SNOMED-CT () 2018-12-07 complete Mental other 7 d Health- outpatient Swain visit for [address], established [phone] patient, [id number] which requires at least 2 of these 3 varghese components: An expanded problem focused history; An expanded problem focused examination; Medical decision making of [facility] Office [place] [id number] SNOMED-CT () 2018-07-04 complete Mental other 6 d Health- outpatient Swain visit for [address], established [id number] patient, [id number] which requires at least 2 of these 3 varghese components: A problem focused history; A problem focused examination; Straightforw maximiliano medical decision making. Counselin Office or [id number] SNOMED-CT () 2018-08-01 complete Mental other 6 d Health- outpatient Araceli visit for [address], established [phone] patient, [id number] which requires at least 2 of these 3 varghese components: A problem focused history; A problem focused examination; Straightforw maximiliano medical decision making. Counselin Office or [id number] SNOMED-CT () 2018-05-17 complete Mental other 8 d Health- outpatient Swain visit for [address], established [id number] patient, [id number] which requires at least 2 of these 3 varghese components: A detailed history; A detailed examination; Medical decision making of moderate complexity. Counseling and/o SNOMED-CT () 2018-10-12 complete Mental d Health- Araceli [address], [phone] SNOMED-CT () 2018-12-07 complete Mental d Health- [facility], [id number] [id number] SNOMED-CT () 2019-01-[address], [id number] Encounters/Encounter Diagnoses Encounter Name Encounter Diagnosis Diagnosis Diagnosis Date of Service Code Code Name CodeSystem Diagnosis Delivery Location Established [facility] [facility] 2019-01-30 Behavioral patient 15-29 [facility] minutes [facility] , , , Vital Signs No Information Social History Element Description Description Start End Code CodeSystem AdditionalInfo Date Date SexAssignedAtBirth Female 1960- F AdministrativeGender 0-31 Hospital Discharge Instructions Reason For Referral Medical Equipment FDA Assessments
[2019-02-11 15:17] VITALS: BP 153/74
[2019-02-11] MEDS ORDERED: Ketorolac INJ* 30 MG/ML 1 ML VIAL IM ONE (15:31)
--- NOTE | 2019-02-11 15:32 | UC ---
Shoulder Pain HPI - HPI Summary HPI Summary: The patient is a 58-year-old female that woke this morning with severe right shoulder pain. She states the pain radiates all way down to her fingertips. Her fingers feel numb. She has had chronic neck pain. Her right shoulder pain is worse with any attempts to move it. It feels better in a sling. She is right handed. She takes narcotics for her chronic back pain and they have not helped with her shoulder pain. - History of Current Complaint Chief Complaint: UCUpperExtremity Stated Complaint: ARM PAIN Time Seen by Provider: 02/11/19 15:27 Hx Obtained From: Patient Hx Last Menstrual Period: post menopause Onset/Duration: Gradual Onset, Lasting Hours Timing: Constant Severity Initially: Severe Severity Currently: Severe Location Of Pain: Is Diffuse, Radiates To - right finger Pain Intensity: 10 Character: Sharp, Aching, Throbbing, Spasmodic, Stiffness Aggravating Factor(s): Movement, Internal Rotation, External Rotation, Abduction Alleviating Factor(s): Rest - sing Associated Signs And Symptoms: Positive: Numbness/Tingling Related History: Dominant Hand Right Torso: 1 - pain 2 - pain 3 - pain - Allergies/Home Medications Allergies/Adverse Reactions: Allergies Allergy/AdvReac Type Severity Reaction Status Date / Time azithromycin Allergy Severe Diarrhea Verified 02/11/19 15:18 codeine Allergy Severe Difficulty Verified 02/11/19 15:18 Breathing, facial swelling Penicillins Allergy Severe Rash, Verified 02/11/19 15:18 facial swelling Sulfa (Sulfonamide Allergy Severe Rash And Verified 02/11/19 15:18 Antibiotics) Itching tetracycline Allergy Severe Rash Verified 02/11/19 15:18 levofloxacin [From Levaquin] AdvReac Severe Anaphylatic Verified 02/11/19 15:18 Shock Bees Allergy Severe Anaphylatic Uncoded 01/18/19 13:41 Shock Home Medications: Home Medications predniSONE TAB* [Deltasone 20 MG TAB*] 10 mg PO DAILY 02/11/19 [History] PMH/Surg Hx/FS Hx/Imm Hx Previously Healthy: Yes Endocrine History: Dyslipidemia Cardiovascular History: Hypertension Respiratory History: COPD Other History Of: Negative For: Anticoagulant Therapy - Surgical History Surgical History: Yes Surgery Procedure, Year, and Place: fusion cervical spine(PART OF METAL REMOVED BUT DOES STILL HAVE METAL IN NECK),. BILATERAL SHOULDER REPAIRS 4 YRS AGO,. laparoscopy of bowel,. both elbows PINCHED NERVES REPAIRED. UTERINE POLYP REMOVED-CARPAL TUNNEL RIGHT WRIST. LEFT WRIST DECOMPRESSION - Family History Known Family History: Positive: Cardiac Disease - father [place] >55 y/o, Hypertension, Respiratory Disease - COPD in mother - Social History Alcohol Use: None Alcohol Amount: 2 per year Substance Use Type: Marijuana Smoking Status (MU): Former Smoker Type: Cigarettes Amount Used/How Often: 1/2 PPD Length of Time of Smoking/Using Tobacco: since age 17 Have You Smoked in the Last Year: Yes - "I smoked my last cigarette this morning 03/16/16" "I have patches" When Did the Patient Quit Smoking/Using Tobacco: will be stopping in a couple days has gum and patches Household Exposure Type: Cigarettes - Immunization History Most Recent Influenza Vaccination: 11/2015 Most Recent Tetanus Shot: last 10 years Most Recent Pneumonia Vaccination: none Review of Systems All Other Systems Reviewed And Are Negative: Yes Constitutional: Positive: Negative Skin: Positive: Negative Eyes: Positive: Negative ENT: Positive: Negative Respiratory: Positive: Negative Cardiovascular: Positive: Negative Gastrointestinal: Positive: Negative Genitourinary: Positive: Negative Motor: Positive: Negative Neurovascular: Positive: Negative Musculoskeletal: Positive: Arthralgia - right shoulder Neurological: Positive: Paresthesia - fingers Psychological: Positive: Negative Is Patient Immunocompromised?: Yes Physical Exam Triage Information Reviewed: Yes Appearance: Well-Appearing, No Pain Distress, Well-Nourished Vital Signs: Initial Vital Signs Temp 98.3 F 02/11/19 15:10 Pulse 94 02/11/19 15:10 Resp 16 02/11/19 15:10 BP 153/74 02/11/19 15:10 Pulse Ox 96 02/11/19 15:10 Vital Signs Reviewed: Yes Eyes: Positive: Conjunctiva Clear ENT: Positive: Hearing grossly normal. Negative: Nasal congestion, Nasal drainage, Trismus, Muffled voice, Dental tenderness Neck: Positive: No Lymphadenopathy. Negative: Supple Respiratory: Positive: Lungs clear, Normal breath sounds, No respiratory distress, No accessory muscle use Cardiovascular: Positive: RRR, No Murmur Musculoskeletal: Positive: No Edema, ROM Limited @ - right shoulder/tender anteriorly and trapezius Neurological: Positive: Alert Psychological Exam: Normal Skin Exam: Normal Diagnostics - Radiology No standard instances Radiology Interpretation Completed By: Radiologist Summary of Radiographic Findings: IMPRESSION: 1. Multilevel degenerative changes and stable postsurgical findings as described above. 2. There is a lucent line at the base of the dens. The dens is otherwise intact and the atlantodental joint appears normal. If it'll influence clinical management superior characterization can be made with CT of the cervical spine. If the patient's symptoms persist, follow-up imaging is recommended. THE CORACOCLAVICULAR JOINT MEASURES 2.4 CM IN DIAMETER. PLEASE CORRELATE TO SURGICAL HISTORY INCLUDING OSTEOTOMY. IN THE ABSENCE OF SURGERY THE DIFFERENTIAL DIAGNOSIS INCLUDES HYPERPARATHYROIDISM, RHEUMATOID ARTHRITIS OR DISTAL CLAVICULAR OSTEOLYSIS. If the patient's symptoms persist, follow-up imaging is recommended Shoulder Course/Dx - Differential Dx/Diagnosis Provider Diagnosis: Right shoulder pain, Right cervical radiculopathy Discharge ED - Sign-Out/Discharge Documenting (check all that apply): Patient Departure All imaging exams completed and their final reports reviewed: Yes - Discharge Plan Condition: Stable Disposition: HOME Patient Education Materials: Cervical Radiculopathy (ED), Soft Cervical Collar (ED), How to Use a Sling (ED) Referrals: Yovana Montoya MD [Primary Care Provider] - As Soon As Possible Additional Instructions: you may need further imaging of your neck I am unsure if the neck or your shoulder is the primary cause of your pain were sling for comfort I suggest you follow up with your orthopedist - Billing Disposition and Condition Condition: STABLE Disposition: Home
== END 2019-02-11 17:13 | disposition home or self-care (01) ==
LOC: UCEAST 14:36
DX: M54.12 Radiculopathy, cervical region (principal); M25.511 Pain in right shoulder; G89.29 Other chronic pain; M54.2 Cervicalgia; M19.011 Primary osteoarthritis, right shoulder; Z79.51 Long term (current) use of inhaled steroids; I10 Essential (primary) hypertension; J44.9 Chronic obstructive pulmonary disease, unspecified; R20.2 Paresthesia of skin; Z87.891 Personal history of nicotine dependence; Z98.1 Arthrodesis status; Z88.0 Allergy status to penicillin; Z88.1 Allergy status to other antibiotic agents; Z88.2 Allergy status to sulfonamides; Z88.5 Allergy status to narcotic agent; Z91.030 Bee allergy status
CPT/HCPCS: 72050; 96372; 99212; G0463; J1885

== ENCOUNTER 2019-05-20 09:21 | Emergency (ER) | payer MEDICARE, MEDICAID ==
--- OUTSIDE RECORDS SUMMARY | 2019-05-20 09:29 | XMS REPORT | Continuity of Care Document ---
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 Onset: 01/20/2015 Cervical spondylosis without myelopathy Tim Bradley M.D. Onset: 11/03/2016 Closed fracture of phalanx of foot Gus Godinez MD Onset: 11/16/2017 Radiculopathy, cervical region Haroldo Tariq MD Onset: 03/14/2019 Carpal tunnel syndrome of right wrist Haroldo Tariq MD Onset: 03/14/2019 Radial styloid tenosynovitis Haroldo Tariq MD Onset: 03/14/2019 Social History Type Date Description Comments Sex [...] ready to quit smoking Smoking Status Reviewed: 04/10/19 Patient is getting ready to quit smoking Exercise Type/Frequency Does not exercise Allergies, Adverse Reactions, Alerts Active Allergies Reaction Severity Comments Date Sulfa 11/02/2011 Codeine 10/29/2014 Levofloxacin 10/29/2014 Penicillin 10/29/2014 Sulfa Antibiotics 10/29/2014 Tetracycline 10/29/2014 Zithromax 10/29/2014 Buspirone 10/29/2014 Tetracycline 10/29/2014 Bee Sting Anaphylaxis Severe 08/11/2017 Medications Active Medications SIG Qnty Indications Ordering Date Provider Cpap Supplies Pls provide 1units G47.33 Melaina Morfin, 09/22/2018 necessary pap supplies, mask to fit, tubing ,head gear, filters Breo Ellipta inhale 1 puff by 60units Melania Morfin, 12/26/2017 mouth once daily 200-25mcg/Inh Aerosol Voltaren apply 4 gm to the 900gm M25.561 Brock F 07/12/2017 1% Gel affected area 4 MD Vickie times a day as needed for pain Oxygen please use o2 at 1units J44.9 Melania Morfin, 10/27/2016 Misc 2l/min with MD hernandez. pls provide pt with simply Widgetbox portable concentrator R09.02 Incruse Ellipta inhale one [...] Medication SIG Qnty Indications Ordering Provider Date Celestone 3 mg and 3mg Haroldo Tariq MD 03/14/2019 Injection Celestone 3 mg and 3mg Haroldo Tariq MD 01/09/2019 Injection Dexamethasone Sodium Brock Johnston MD 07/12/2017 Phosphate, [...] Depomedrol 80MG Eliu Busch M.D. 12/02/2010 Injection Josephomedrol 80MG Eliu Busch M.D. 11/04/2010 Injection Immunizations CPT Code Status Date Vaccine Lot # [id number] Given 01/24/2008 Influenza Virus 3Yrs & Over 32523 Given 01/24/2008 Influenza Virus 3Yrs & Over 42988 Given 04/26/2007 Tdap - Tetanus/Diptheria/Acellular Pertussis 91062 Given 12/06/2006 Influenza Virus 3Yrs & Over 94255 Given 12/03/2005 Influenza Virus 3Yrs & Over Vital Signs Date Vital Result Comment 04/10/2019 11:56am Height 60 inches 5'0" Weight 151.00 lb Heart Rate 91 /min BP Systolic 124 mmHg BP Diastolic 84 mmHg Respiratory Rate 18 /min Body Temperature 98.0 F Pain Level 9 BMI (Body Mass Index) 29.5 kg/m2 03/14/2019 9:31am Heart Rate 110 /min BP Systolic 150 mmHg BP Diastolic 90 mmHg Respiratory Rate 22 /min Body Temperature 98.4 F Pain Level 8 Results Description No Information Available Procedures Date Code Description Status 03/14/2019 Inject Tendon Sheath Or Ligament Aponeurosis Eg Plantar Completed Fascia 01/09/201915530 Inject Tendon Sheath Or Ligament Aponeurosis Eg Plantar Completed Fascia Medical Devices Description No Information Available Encounters Type Date Location Provider Dx Diagnosis Office Visit 03/14/2019 [facility] Haroldo Tariq M65.4 Radial styloid 9:15a at [place] tenosynovitis [de Quervain] G56.01 Carpal tunnel syndrome, right upper limb M54.12 Radiculopathy, cervical region Office Visit 02/20/2019 9:45a Paxton Zarco M65.4 Radial styloid [facility] at [facility] tenosynovitis [de Shashank Quervain] G56.01 Carpal tunnel syndrome, right upper limb M54.2 Cervicalgia Office Visit 01/09/2019 9:30a Paxton Zarco M65.4 Radial styloid [facility] at [facility] tenosynovitis [de Shashank Quervain] Assessments Date Code Description Provider 04/10/2019 M65.4 Radial styloid tenosynovitis [de Quervain] Haroldo Tariq MD 04/10/2019 G56.01 Carpal tunnel syndrome, right upper limb Haroldo Tariq MD 04/10/2019 M54.12 Radiculopathy, cervical region Haroldo Tariq MD 03/14/2019 M65.4 Radial styloid tenosynovitis [de Quervain] Haroldo Tariq MD 03/14/2019 G56.01 Carpal tunnel syndrome, right upper limb Haroldo Tariq MD 03/14/2019 M54.12 Radiculopathy, cervical region Haroldo Tariq MD 02/20/2019 M65.4 Radial styloid tenosynovitis [de Quervain] Haroldo Tariq MD 02/20/2019 G56.01 Carpal tunnel syndrome, right upper limb Haroldo Tariq MD 02/20/2019 M54.2 Cervicalgia Haroldo Tariq MD 01/09/2019 M65.4 Radial styloid tenosynovitis [de Quervain] Haroldo Tariq MD Plan of Treatment Future Appointment(s):05/16/2019 12:00 pm - Laurie Wang MD at [facility]04/25/2019 10:00 am - Michelle Tejeda NP at [facility]04/10/2019 - Haroldo Tariq MDM65.4 Radial styloid tenosynovitis [de Quervain]Follow up:Follow up: 7-10 days before jsibwmvK93.01 Carpal tunnel syndrome, right upper limbM54.12 Radiculopathy, cervical region Functional Status Description No Information Available Mental Status Description No Information Available Referrals Refer to Dr Reason for Referral Status Appt Date Laurie Wang MD Created [address] [place] [address] [phone]
--- OUTSIDE RECORDS SUMMARY | 2019-05-20 09:29 | XMS REPORT | Continuity of Care Document ---
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 Onset: 01/20/2015 Cervical spondylosis without myelopathy Tim Bradley M.D. Onset: 11/03/2016 Closed fracture of phalanx of foot Gus Godinez MD Onset: 11/16/2017 Radial styloid tenosynovitis Haroldo Tariq MD Onset: 03/14/2019 Carpal tunnel syndrome of right wrist Haroldo Tariq MD Onset: 03/14/2019 Radiculopathy, cervical region Haroldo Tariq MD Onset: 03/14/2019 Social History [...] ready to quit smoking Smoking Status Reviewed: 04/25/19 Patient is getting ready to quit smoking Exercise Type/Frequency Does not exercise Allergies, Adverse Reactions, Alerts Active Allergies Reaction Severity Comments Date Sulfa 11/02/2011 Codeine 10/29/2014 Levofloxacin 10/29/2014 Penicillin 10/29/2014 Sulfa Antibiotics 10/29/2014 Tetracycline 10/29/2014 Zithromax 10/29/2014 Buspirone 10/29/2014 Tetracycline 10/29/2014 Bee Sting Anaphylaxis Severe 08/11/2017 Medications Active Medications SIG Qnty Indications Ordering Date Provider Clarithromycin ER 1 tab daily 7tabs J44.9 Michelle 04/25/2019 500mg Ileana, MEDICAL BILLER CODER Tablets ER 24HR Prednisone 1 tab daily for 7 11tabs J44.1 Michelle 04/25/2019 5mg Tablets days, then 1/2 tab Ileana, MEDICAL BILLER CODER daily for 8 days Cpap Supplies Pls provide 1units G47.33 Melania Morfin, 09/22/2018 necessary pap MD supplies, mask to fit, tubing ,head gear, [...] MD hernandez. pls provide pt with simply TapInko portable concentrator R09.02 Incruse Ellipta inhale one puff by 30units Melania Morfin MD 10/08/2016 62.5mcg/Inh mouth every day Aerosol Besolate bid Melania Morfin MD 09/21/2016 2mg Albuterol Sulfate 1 unit nebl every 6 4units Melania Morfin MD 2015 (2.5mg/3ML) hours as needed 0.083% Nebulizer Sertraline HCL 1 by mouth every day Unknown 10/28/2014 200mg Tablets Trazodone HCL 2 by mouth every Unknown 10/28/2014 100mg Tablets night at bedtime Lisinopril 1 by [...] Latuda 1 by mouth every, day Unknown 120mg Tablets after dinner Embeda 1 by mouth [...] CPT Code Status Date Vaccine Lot # [id number] Given 01/24/2008 Influenza Virus 3Yrs & Over 66138 Given 01/24/2008 Influenza Virus 3Yrs & Over 24235 Given 04/26/2007 Tdap - Tetanus/Diptheria/Acellular Pertussis 77851 Given 12/06/2006 Influenza Virus 3Yrs & Over 74764 Given 12/03/2005 Influenza Virus 3Yrs & Over Vital Signs Date Vital Result Comment 04/25/2019 9:43am Height 60 inches 5'0" Weight 147.38 lb Heart Rate 63 /min BP Systolic 110 mmHg BP Diastolic 66 mmHg O2 % BldC Oximetry 90 % BMI (Body Mass Index) 28.8 kg/m2 04/10/2019 11:56am Height 60 inches 5'0" Weight 151.00 lb Heart Rate 91 /min BP Systolic 124 mmHg BP Diastolic 84 mmHg Respiratory Rate 18 /min Body Temperature 98.0 F Pain Level 9 BMI (Body Mass Index) 29.5 kg/m2 Results Description No Information Available Procedures Date Code Description Status 03/14/201939388 Inject Tendon Sheath Or Ligament Aponeurosis Eg Plantar Completed Fascia 01/09/2019 23454 Inject Tendon Sheath Or Ligament Aponeurosis Eg Plantar Completed Fascia Medical Devices Description No Information Available Encounters Type Date Location Provider Dx Diagnosis Office Visit 05/15/2019 [facility] CHERYL [facility] G56.01 Carpal tunnel 9:00a at [place] syndrome, right upper limb M54.12 Radiculopathy, cervical region G56.22 Lesion of ulnar nerve, left upper limb Office Visit 04/25/2019 [facility] J44.1 Chronic 10:00a [facility] obstructive Product Coordinator pulmonary disease w (acute) exacerbation R09.02 Hypoxemia G47.33 Obstructive sleep apnea (adult) (pediatric) F17.210 Nicotine dependence, cigarettes, uncomplicated Office Visit 04/10/2019 11:30a Paxton Flores5.4 Radial styloid [facility]oped[facility] at [facility] tenosynovitis [[place]] M54.12 Radiculopathy, cervical region Office Visit 03/14/2019 9:15a Paxton Flores5.4 Radial styloid [facility] at [facility] tenosynovitis [[place]] G56.01 Carpal tunnel syndrome, right upper limb M54.12 Radiculopathy, cervical region Office Visit 02/20/2019 9:45a Paxton Le.4 Radial styloid [facility] at [facility] tenosynovitis [de [place] Quervain] G56.01 Carpal tunnel syndrome, right upper limb M54.2 Cervicalgia Office Visit 01/09/2019 9:30a Paxton Zarco M65.4 Radial styloid [facility] at [facility] tenosynovitis [de [place] Quervain] Assessments Date Code Description Provider 05/15/2019 G56.01 Carpal tunnel syndrome, right upper limb [place] 05/15/2019 M54.12 Radiculopathy, cervical region [place] 05/15/2019 G56.22 Lesion of ulnar nerve, left upper limb [place] 04/25/2019 J44.1 Chronic obstructive pulmonary disease with Michelle Tejeda NP (acute) exacerbation 04/25/2019 R09.02 Hypoxemia Michelle Tejeda NP 04/25/2019 G47.33 Obstructive sleep apnea (adult) (pediatric) Michelle Tejeda NP 04/25/2019 F17.210 Nicotine dependence, cigarettes, Michelle Tejeda NP uncomplicated 04/10/2019 M65.4 Radial styloid tenosynovitis [de Quervain] Haroldo Tariq MD 04/10/2019 M54.12 Radiculopathy, cervical [...] Haroldo Tariq MD Plan of Treatment Future Appointment(s):07/06/2019 10:00 am - Michelle Tejeda NP at [facility]08/27/2019 12:30 pm - Haroldo Tariq MD at [facility] at Qyayit4905/29/2019 8:45 am - Haroldo Tariq MD at [facility] at Viwtfd3305/15/2019 - [place], PAG56.01 Carpal tunnel syndrome, right upper limbFollow up:Follow up: 2 lsdjqyH64.12 Radiculopathy, cervical xvhuigM93.22 Lesion of ulnar nerve, left upper limbG56.01 Carpal tunnel syndrome, right upper limbFollow up:Follow up: 2 omrkwzA80.12 Radiculopathy, cervical krhphbX68.22 Lesion of ulnar nerve, left upper limb Functional Status Description No Information Available Mental Status Description No Information Available Referrals Refer to Reason for Referral Status Appt Date Laurie Wang MD Created [address] [place] [address] [place] [address] [phone]
--- OUTSIDE RECORDS SUMMARY | 2019-05-20 09:29 | XMS REPORT ---
:1960 Author Organization [facility] Care Team Providers Name Role Phone Mary Vaughan Primary Care Physician Unavailable Allergies, Adverse Reactions, Alerts Allergy Code CodeSystem Reaction Severity Criticality Status Start Substance Date nkda Moderate Active Medications Medication Medication Medication Start Stop Route Dose Status Fill Code CodeSystem Date Date Instructions sertraline 944810 RxNorm 2018-02- oral 100 mg active for 30 -12 04-25 tablet day(s) Latuda 2517391 RxNorm 2019- oral 80 mg active for 30 - 12-19 tablet day(s) mirtazapine 493071 RxNorm 2019- oral 7.5 mg 1 completed Take 1 tablet 10-24- tablet by mouth at at bedtime for bedtime 30 day(s) trazodone 529614 RxNorm 2019- oral 150 mg completed for 30 - 10-24 tablet day(s) sertraline 886081 RxNorm 2019- oral 100 mg 2 completed 2 tablet -02 01-17 tablet once a day once a for 30 day(s) day sertraline 150077 RxNorm 2019- oral 100 mg completed for 30 -02 01-27 tablet day(s) mirtazapine 166784 RxNorm 2019- oral 7.5 mg completed for 30 - 09-10 tablet day(s) trazodone 537262 RxNorm 2019- oral 150 mg completed for 30 3-14 08-19 tablet day(s) sertraline 751338 RxNorm 0 2019- oral 100 mg completed for 30 5- 08-19 tablet day(s) mirtazapine 639987 RxNorm 2019 2019- oral 7.5 mg completed for 30 3-14 08-19 tablet day(s) Latuda 2336254 RxNorm 2019- oral 80 mg completed for 30 6-18 09-16 tablet day(s) Latuda 5539850 RxNorm 2019- oral 60 mg completed for 30 2-22 05-21 tablet day(s) trazodone 982688 RxNorm 2018-02- oral 100 mg active for 30 0-24 01-22 tablet day(s) sertraline 509402 RxNorm 2019- oral 100 mg completed for 30 2-22 08-19 tablet day(s) Latuda 1591810 RxNorm 2019- oral 80 mg completed for 30 5-21 06-18 tablet day(s) Relevant diagnostic tests/laboratory data Narrative No Information Procedures Procedure Code CodeSystem Target Date of Status Service Device Device Device Name Site Procedure Delivery Code Name UID Location Office or [id number] SNOMED-CT () 2018-05-17 complete Mental other 8 d Health- outpatient [place] visit for [address], [facility], [facility] [id number] patient, [id number] which requires at least 2 of these 3 varghees components: A detailed history; A detailed examination; Medical decision making of moderate complexity. Counseling and/o Psychotherap 656034 SNOMED-CT () 2018-05-29 complete Mental y, 45 04 d Health- minutes with [place] patient [address], [id number] [id number] Psychotherap [id number] SNOMED-CT () 2018-06-13 complete Mental y, 45 04 d Health- minutes with [place] patient [address], [id number] [id number] Psychotherap [id number] SNOMED-CT () 2018-06-20 complete Mental y, 45 04 d Health- minutes with [place] patient [address], [id number] [id number] Psychotherap 268803 SNOMED-CT () 2018-07-04 complete Mental y, 45 04 d Health- minutes with [place] patient [address], [id number] Office or [id number] SNOMED-CT () 2018-07-04 complete Mental other 6 d Health- outpatient [place] visit for [address], established [id number] patient, [id number] which requires at least 2 of these 3 varghese components: A problem focused history; A problem focused examination; Straightforw maximiliano medical decision making. Counselin Office or [id number] SNOMED-CT () 2018-08-01 complete Mental other 6 d Health- outpatient [place] visit for [address], [facility], [facility], established [id number] patient, [phone] which requires at least 2 of these 3 varghese components: A problem focused history; A problem focused examination; Straightforw maximiliano medical decision making. Counselin Psychotherap 340797 SNOMED-CT () 2018-08-01 complete Mental y, 45 04 d Health- minutes with [place] patient [address], [id number] [id number] Psychotherap 326952 SNOMED-CT () 2018-08-15 complete Mental y, 45 04 d Health- minutes with [place] patient [address], [id number] [phone] Psychotherap 184128 SNOMED-CT () 2018-08-30 complete Mental y, 45 04 d Health- minutes with [place] patient [address], [id number] [id number] Psychotherap 938945 SNOMED-CT () 2018-09-06 complete Mental y, 45 04 d Health- minutes with [place] patient [address], [id number] [id number] Psychotherap [id number] SNOMED-CT () 2018-08-23 complete Mental y, 45 04 d Health- minutes with [place] patient [address], [id number] [phone] Psychotherap 535655 SNOMED-CT () 2018-09-20 complete Mental y, 45 04 d Health- minutes with [place] patient [address], [id number] [id number] Psychotherap 296970 SNOMED-CT () 2018-10-02 complete Mental y, 45 04 d Health- minutes with [place] patient [address], [id number] Office or [id number] SNOMED-CT () 2018-10-02 complete Mental other 7 d Health- outpatient [place] visit for [address], established [id number] patient, [id number] which requires at least 2 of these 3 varghese components: An expanded problem focused history; An expanded problem focused examination; Medical decision making of low SNOMED-CT () 2018-10-12 complete Mental d Health- [address], [id number] [id number] Psychotherap 053029 SNOMED-CT () 2018-10-26 complete Mental y, 45 04 d Health- minutes with [place] patient [address], [id number] [id number] Psychotherap [id number] SNOMED-CT () 2018-11-02 complete Mental y, 45 04 d Health- minutes with [place] patient [address], [id number] [id number] Psychotherap 176984 SNOMED-CT () 2018-11-09 complete Mental y, 45 04 d Health- minutes with [place] patient [address], [id number] [phone] Psychotherap [id number] SNOMED-CT () 2018-11-23 complete Mental y, 45 04 d Health- minutes with [place] patient [address], [id number] [id number] Office or [id number] SNOMED-CT () 2018-12-07 complete Mental other 7 d Health- outpatient [place] visit for [address], [facility], established [id number] patient, [id number] which requires at least 2 of these 3 varghese components: An expanded problem focused history; An expanded problem focused examination; Medical decision making of low SNOMED-CT () 2018-12-07 complete Mental d Health- [address], [id number] [id number] Psychotherap [id number] SNOMED-CT () 2018-12-28 complete Mental y, 45 04 d Health- minutes with [place] patient [address], [id number] SNOMED-CT () 2019-01-25 complete Mental d Health- [place], [id number] [id number] Office or [id number] SNOMED-CT () 2019-01-30 complete Mental other 7 d Health- outpatient [place] visit for [address], established [id number] patient, [id number] which requires at least 2 of these 3 varghese components: An expanded problem focused history; An expanded problem focused examination; Medical decision making of [facility] Psychotherap 841408 SNOMED-CT () 2019-02-06 complete Mental y, 45 04 d Health- minutes with [place] patient [address], [id number] [id number] Psychotherap [id number] SNOMED-CT () 2019-02-22 complete Mental y, 45 04 d Health- minutes with [place] patient [address], [id number] [id number] Office or [id number] SNOMED-CT () 2019-02-27 complete Mental other 6 d Health- outpatient [place] visit for [address], established [id number] patient, [id number] which requires at least 2 of these 3 varghese components: A problem focused history; A problem focused examination; Straightforw maximiliano medical decision making. Counselin Psychotherap 084870 SNOMED-CT () 2019-03-08 complete Mental y, 45 04 d Health- minutes with [place] patient [address], [id number] [phone] Psychotherap 098241 SNOMED-CT () 2019-03-21 complete Mental y, 45 04 d Health- minutes with [place] patient [address], [id number] [id number] Encounters/Encounter Diagnoses Encounter Name Encounter Diagnosis Diagnosis Diagnosis Date of Service Code Code Name CodeSystem Diagnosis Delivery Location Psychotherapy - 89614 SNOMED-CT 2019-03-21 [facility] [address] [place] [address], [phone] Vital Signs No Information Social History Element Description Description Start End Code CodeSystem AdditionalInfo Date Date SexAssignedAtBirth Female 1960-02 F AdministrativeGender 0-31 Hospital Discharge Instructions Reason For Referral Medical Equipment FDA Assessments
--- OUTSIDE RECORDS SUMMARY | 2019-05-20 09:29 | XMS REPORT | Continuity of Care Document ---
:1960 External Reference #:[id number] Author Name Michelle Tejeda NP Address [address], [address] [place] [address] Care Team Providers Name Role Phone Yovana Montoya MD - Internal Care Team Information Base Ply Hand Medicine Problems Active Problems Provider Date Dyspnea [...] daily 7tabs J44.9 Michelle 04/25/2019 500mg Ileana, SOFT WATER MECHANIC Tablets ER 24HR Prednisone 1 tab daily for 7 11tabs J44.1 Michelle 04/25/2019 5mg Tablets days, then 1/2 tab Ileana, SOFT WATER MECHANIC daily for 8 days Cpap Supplies Pls [...] MD hernandez. pls provide pt with simply Displair portable concentrator R09.02 Incruse Ellipta inhale one [...] CPT Code Status Date Vaccine Lot # [id number] Given 01/24/2008 Influenza Virus 3Yrs & Over 84468 Given 01/24/2008 Influenza Virus 3Yrs & Over 78517 Given 04/26/2007 Tdap - Tetanus/Diptheria/Acellular Pertussis 20331 Given 12/06/2006 Influenza Virus 3Yrs & Over 77687 Given 12/03/2005 Influenza Virus 3Yrs & Over [...] Available Procedures Date Code Description Status 03/14/2019 95916 Inject Tendon Sheath Or Ligament Aponeurosis Eg Plantar Completed Fascia 01/09/2019 97240 Inject Tendon Sheath Or Ligament Aponeurosis Eg Plantar Completed Fascia Medical Devices Description No Information Available Encounters Type Date Location Provider Dx Diagnosis Office Visit 04/25/2019 [facility] J44.1 Chronic obstructive 10:00a [facility] pulmonary disease w Pipe Coremaker (acute) exacerbation R09.02 Hypoxemia G47.33 Obstructive sleep apnea (adult) (pediatric) F17.210 Nicotine dependence, cigarettes, uncomplicated Office Visit 03/14/2019 9:15a Paxton Zarco M65.4 Radial styloid [facility]oped[facility] at [facility] tenosynovitis [Mera Quervain] G56.01 Carpal tunnel syndrome, right upper limb M54.12 Radiculopathy, cervical region Office Visit 02/20/2019 9:45a Paxton Zarco M65.4 Radial styloid [facility] at [facility] tenosynovitis [Mera Quervalake] G56.01 Carpal tunnel syndrome, right upper limb M54.2 Cervicalgia Office Visit 01/09/2019 9:30a Paxton Zarco M65.4 Radial styloid [facility] at [facility] tenosynovitis [[place]] Assessments Date Code Description Provider 04/25/2019 J44.1 Chronic obstructive pulmonary disease with [...] Haroldo Tariq MD Plan of Treatment Future Appointment(s):06/13/2019 10:00 am - Michelle Tejeda NP at [facility]05/15/2019 9:00 am - Haroldo Tariq MD at [facility] at Xzupwy6606/18/2019 12:00 pm - Haroldo Tariq MD at [facility] at Fbyhcf8505/29/2019 8:45 am - Haroldo Tariq MD at [facility] at Kkneiy0205/16/2019 12:00 pm - Laurie Wang MD at [facility]04/25/2019 - Michelle Tejeda, NPJ44.1 Chronic obstructive pulmonary disease with (acute) exacerbationNew Medication: Prednisone 5 mg - 1 tab daily for 7 days, then 1/2 tab daily for 8 daysNew Orders:PFTW/Spirometry Vol Pre/Post Bronchdilat Dlco Complete, Ordered: Minute Walk, Ordered: 04/25/19Follow up:6-8 weeks (PFTs and 6 min walk prior )Recommendations:Start the antibiotics and uvahltajczH07.02 XajgkdgywF45.33 Obstructive sleep apnea (adult) (pediatric)F17.210 Nicotine dependence, cigarettes, uncomplicated Functional Status Description No Information Available Mental Status Description No Information Available Referrals Refer to Reason for Referral Status Appt Date Laurie Wang MD Created [address] [place] [phone]
--- OUTSIDE RECORDS SUMMARY | 2019-05-20 09:29 | XMS REPORT ---
:1960 Author Organization [facility] Care Team Providers Name Role Phone Mary Vaughan Primary Care Physician Unavailable Allergies, Adverse Reactions, Alerts Allergy Code CodeSystem Reaction Severity Criticality Status Start Substance Date nkda Moderate Active Medications Medication Medication Medication Start Stop Route Dose Status Fill Code CodeSystem Date Date Instructions sertraline 652122 RxNorm 2019- oral 100 mg completed for 30 -04 10-19 tablet day(s) sertraline 869308 RxNorm 2019- oral 100 mg 2 completed 2 tablet 10-02-17 tablet once a day once a for 30 day(s) day sertraline 197101 RxNorm 2019- oral 100 mg completed for 30 - 08-19 tablet day(s) mirtazapine 989383 RxNorm 2019- oral 7.5 mg 1 completed Take 1 tablet 10-24- tablet by mouth at at bedtime for bedtime 30 day(s) sertraline 611668 RxNorm 2019- oral 100 mg completed for 30 - 11-27 tablet day(s) mirtazapine 185666 RxNorm 2019- oral 7.5 mg completed for 30 - 09-10 tablet day(s) Latuda 6762408 RxNorm 2019- oral 80 mg completed for 30 5- 06-18 tablet day(s) trazodone 014153 RxNorm 2018-02 2020- oral 100 mg active for 30 0-24 01-22 tablet day(s) Latuda 2251055 RxNorm 2019- oral 80 mg active for 30 9-20 12-19 tablet day(s) sertraline 569891 RxNorm 2018-02 2020- oral 100 mg active for 30 - 02-25 tablet day(s) trazodone 100712 RxNorm 2019- oral 150 mg completed for 30 3-14 08-19 tablet day(s) trazodone 113435 RxNorm 2019- oral 150 mg completed for 30 5-21 10-24 tablet day(s) Latuda 3102345 RxNorm 2019- oral 80 mg completed for 30 6-18 09-16 tablet day(s) Latuda 0818163 RxNorm 2018- oral 60 mg completed for 30 2-22 05-21 tablet day(s) mirtazapine 659190 RxNorm 2019- oral 7.5 mg completed for 30 3-14 08-19 tablet day(s) Relevant diagnostic tests/laboratory data Narrative No Information Procedures Procedure Code CodeSystem Target Date of Status Service Device Device Device Name Site Procedure Delivery Code Name UID Location Psychotherap 645373 SNOMED-CT () 2018-12-28 complete Mental y, 45 04 d Health- minutes with [address], [id number] Psychotherap 804601 SNOMED-CT () 2019-02-06 complete Mental y, 45 04 d Health- minutes with [place], [id number] [id number] Psychotherap 512850 SNOMED-CT () 2019-02-22 complete Mental y, 45 04 d Health- minutes with [facility] patient [address], [id number] [id number] Psychotherap 170064 SNOMED-CT () 2019-03-08 complete Mental y, 45 04 d Health- minutes with [place], [id number] [id number] Psychotherap 232264 SNOMED-CT () 2018-10-26 complete Mental y, 45 04 d Health- minutes with [place], [id number] [phone] Psychotherap 901835 SNOMED-CT () 2018-11-02 complete Mental y, 45 04 d Health- minutes with [place] patient [address], [id number] [id number] Psychotherap 342021 SNOMED-CT () 2018-10-02 complete Mental y, 45 04 d Health- minutes with [address], [id number] [id number] Psychotherap 756231 SNOMED-CT () 2018-08-01 complete Mental y, 45 04 d Health- minutes with [address], [id number] [phone] Psychotherap 526717 SNOMED-CT () 2018-08-15 complete Mental y, 45 04 d Health- minutes with [address], [phone] Psychotherap 906537 SNOMED-CT () 2018-08-30 complete Mental y, 45 04 d Health- minutes with [address], [id number] [phone] Psychotherap 536902 SNOMED-CT () 2018-09-06 complete Mental y, 45 04 d Health- minutes with [address], [id number] [id number] Psychotherap 576093 SNOMED-CT () 2018-08-23 complete Mental y, 45 04 d Health- minutes with [address], [id number] [phone] Psychotherap 618914 SNOMED-CT () 2018-09-20 complete Mental y, 45 04 d Health- minutes with [address], [id number] [phone] Psychotherap 105622 SNOMED-CT () 2018-11-09 complete Mental y, 45 04 d Health- minutes with [address], [id number] Psychotherap 143882 SNOMED-CT () 2018-11-23 complete Mental y, 45 04 d Health- minutes with [address], [id number] [phone] Psychotherap 741907 SNOMED-CT () 2018-05-29 complete Mental y, 45 04 d Health- minutes with [address], [id number] [id number] Psychotherap 207392 SNOMED-CT () 2018-06-13 complete Mental y, 45 04 d Health- minutes with [facility] patient [address], [id number] [phone] Psychotherap 136244 SNOMED-CT () 2018-06-20 complete Mental y, 45 04 d Health- minutes with [place] patient [address], [id number] [phone] Psychotherap 880075 SNOMED-CT () 2018-07-04 complete Mental y, 45 04 d Health- minutes with [place] patient [address], [id number] [phone] Office or [id number] SNOMED-CT () 2018-10-02 complete Mental other 7 d Health- outpatient Ar[facility]eli visit for [address], [facility], established [id number] patient, [phone] which requires at least 2 of these 3 varghese components: An expanded problem focused history; An expanded problem focused examination; Medical decision making of low Office or 145764 SNOMED-CT () 2018-12-07 complete Mental other 7 d Health- outpatient Ar[facility] visit for [address], established [id number] patient, [phone] which requires at least 2 of these 3 varghese components: An expanded problem focused history; An expanded problem focused examination; Medical decision making of low Office or 025552 SNOMED-CT () 2019-01-30 complete Mental other 7 d Health- outpatient [place] visit for [address], established [id number] patient, [phone] which requires at least 2 of these 3 varghese components: An expanded problem focused history; An expanded problem focused examination; Medical decision making of low Office or 821618 SNOMED-CT () 2019-02-27 complete Mental other 6 d Health- outpatient [place] visit for [address], established [id number] patient, [phone] which requires at least 2 of these 3 varghese components: A problem focused history; A problem focused examination; Straightforw maximiliano medical decision making. Counselin Office or 110846 SNOMED-CT () 2018-07-04 complete Mental other 6 d Health- outpatient [place] visit for [address], established [id number] patient, [phone] which requires at least 2 of these 3 varghese components: A problem focused history; A problem focused examination; Straightforw maximiliano medical decision making. Counselin Office or 241473 SNOMED-CT () 2018-08-01 complete Mental other 6 d Health- outpatient [facility] visit for [address], established [id number] patient, [id number] which requires at least 2 of these 3 varghese components: A problem focused history; A problem focused examination; Straightforw maximiliano medical decision making. Counselin Office or 210210 SNOMED-CT () 2018-05-17 complete Mental other 8 d Health- outpatient [place] visit for [address], established [id number] patient, [phone] which requires at least 2 of these 3 varghese components: A detailed history; A detailed examination; Medical decision making of moderate complexity. Counseling and/o SNOMED-CT () 2018-10-12 complete Mental d [address], [id number] SNOMED-CT () 2018-12-07 complete Mental d [address], [id number] SNOMED-CT () 2019-01-25 complete Mental d [address], [id number] [phone] Encounters/Encounter Diagnoses Encounter Name Encounter Diagnosis Diagnosis Diagnosis Date of Service Code Code Name CodeSystem Diagnosis Delivery Location Psychotherapy - 64725 SNOMED-CT 2019-03-08 Behavioral Individual [facility] [address] [place] [address], [phone] Vital Signs No Information Social History Element Description Description Start End Code CodeSystem AdditionalInfo Date Date SexAssignedAtBirth Female 1960- F AdministrativeGender 0-31 Hospital Discharge Instructions Reason For Referral Medical Equipment FDA Assessments
--- OUTSIDE RECORDS SUMMARY | 2019-05-20 09:29 | XMS REPORT | Continuity of Care Document ---
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 pls provide pt with [employer] portable concentrator R09.02 Incruse Ellipta inhale one [...] CPT Code Status Date Vaccine Lot # [id number] Given 01/24/2008 Influenza Virus 3Yrs & Over 70829 Given 01/24/2008 Influenza Virus 3Yrs & Over 33945 Given 04/26/2007 Tdap - Tetanus/Diptheria/Acellular Pertussis 53521 Given 12/06/2006 Influenza Virus 3Yrs & Over 82157 Given 12/03/2005 Influenza Virus 3Yrs & Over [...] Available Procedures Date Code Description Status 03/14/2019 98474 Inject Tendon Sheath Or Ligament Aponeurosis Eg Plantar Completed Fascia 01/09/2019 13778 Inject Tendon Sheath Or Ligament Aponeurosis Eg Plantar Completed Fascia Medical Devices Description No Information Available Encounters Type Date Location Provider Dx Diagnosis Office Visit 04/25/2019 Pulmonology And Michelle J44.1 Chronic obstructive 10:00a [facility] pulmonary disease w Nut Processing Supervisor (acute) exacerbation R09.02 Hypoxemia G47.33 Obstructive sleep apnea (adult) (pediatric) F17.210 Nicotine dependence, cigarettes, uncomplicated Office Visit 04/10/2019 11:30a Paxton Le.4 Radial styloid Orthopedics at [facility] tenosynovitis [Mera Querjuan josé] M54.12 Radiculopathy, cervical region Office Visit 03/14/2019 9:15a Paxton Le.4 Radial styloid Orthopedics at [facility] tenosynovitis [[place]] G56.01 Carpal tunnel syndrome, right upper limb M54.12 Radiculopathy, cervical region Office Visit 02/20/2019 9:45a Paxton Le.4 Radial styloid Orthopedics at [facility]ynov[facility] [[place]] G56.01 Carpal tunnel syndrome, right upper limb M54.2 Cervicalgia Office Visit 01/09/2019 9:30a Paxton Le.4 Radial styloid Orthopedics at [facility] ten[facility]ynovitis [de Aniwa Quervain] Assessments Date Code Description Provider 04/25/2019 J44.1 [...] NP at [facility]05/15/2019 9:00 am - Haroldo Tariq MD at [facility] at Zffikk0506/18/2019 12:00 pm - Haroldo Tariq MD at [facility] at Uttlef7005/29/2019 8:45 am - Haroldo Tariq MD at [facility] at Pijyjd4005/16/2019 12:00 pm - Laurie Wang MD at [facility]04/25/2019 - Michelle Tejeda NPJ44.1 Chronic obstructive pulmonary disease with (acute) exacerbationNew Medication: Prednisone 5 mg - 1 tab daily for 7 days, then 1/2 tab daily for 8 daysFollow up :6-8 weeks (PFTs and 6 min walk prior)Recommendations:Start the antibiotics and jnlclervjtP98.02 PodzaozanK09.33 Obstructive sleep apnea (adult) (pediatric) F17.210 Nicotine dependence, cigarettes, uncomplicated Functional Status Description No Information Available Mental Status Description No Information Available Referrals Refer to Reason for Referral Status Appt Date Laurie Wang MD Created [address] [place] [address] [place] [address] [phone]
--- OUTSIDE RECORDS SUMMARY | 2019-05-20 09:29 | XMS REPORT ---
:1960 Author Organization [facility] Care Team Providers Name Role Phone Mary Vaughan Primary Care Physician Unavailable Allergies, Adverse Reactions, Alerts Allergy Code CodeSystem Reaction Severity Criticality Status Start Substance Date nkda Moderate Active Medications Medication Medication Medication Start Stop Route Dose Status Fill Code CodeSystem Date Date Instructions Latuda 3422205 RxNorm 2019- oral 80 mg completed for 30 6-18 09-16 tablet day(s) Latuda 6223146 RxNorm 2019- oral 80 mg completed for 30 - 06-18 tablet day(s) Latuda 4525167 RxNorm 2018- oral 60 mg completed for 30 2- 05-21 tablet day(s) Latuda 2001665 RxNorm 2019- oral 80 mg active for 30 -20 12-19 tablet day(s) trazodone 261983 RxNorm 2019- oral 150 mg completed for 30 5-21 10-24 tablet day(s) sertraline 201373 RxNorm 2019- oral 100 mg completed for 30 5-21 08-19 tablet day(s) mirtazapine 807146 RxNorm 2019- oral 7.5 mg completed for 30 5- 09-10 tablet day(s) trazodone 792113 RxNorm 2018-02 2020- oral 100 mg active for 30 0-24 01-22 tablet day(s) sertraline 113795 RxNorm 2019- oral 100 mg completed for 30 8-19 11-27 tablet day(s) mirtazapine 100093 RxNorm 2019 2019- oral 7.5 mg completed for 30 3-14 08-19 tablet day(s) sertraline 262985 RxNorm 2019- oral 100 mg completed for 30 2-22 08-19 tablet day(s) mirtazapine 417905 RxNorm 2019-0 2019- oral 7.5 mg 1 completed Take 1 tablet 10-24 12- tablet by mouth at at bedtime for bedtime 30 day(s) sertraline 682394 RxNorm 2018-02- oral 100 mg active for 30 03-12 02-25 tablet day(s) sertraline 826360 RxNorm 2018- oral 100 mg 2 completed 2 tablet 10-02 11-17 tablet once a day once a for 30 day(s) day trazodone 005235 RxNorm 2018- oral 150 mg completed for 30 14 08-19 tablet day(s) Relevant diagnostic tests/laboratory data Narrative No Information Procedures Procedure Code CodeSystem Target Date of Status Service Device Device Device Name Site Procedure Delivery Code Name UID Location Office or 977132 SNOMED-CT () 2018-05-17 complete Mental other 8 d Health- outpatient [facility] visit for [address], [place] [facility], [facility] [id number] patient, [phone] which requires at least 2 of these 3 varghese components: A detailed history; A detailed examination; Medical decision making of moderate complexity. Counseling and/o Psychotherap 643789 SNOMED-CT () 2018-05-29 complete Mental y, 45 04 d Health- minutes with [facility] patient [address], [id number] [phone] Psychotherap 122140 SNOMED-CT () 2018-06-13 complete Mental y, 45 04 d Health- minutes with [facility] patient [address], [id number] Psychotherap 919402 SNOMED-CT () 2018-06-20 complete Mental y, 45 04 d Health- minutes with [facility] patient [address], [id number] Psychotherap 490872 SNOMED-CT () 2018-07-04 complete Mental y, 45 04 d Health- minutes with [facility] patient [address], [id number] [phone] Office or 865369 SNOMED-CT () 2018-07-04 complete Mental other 6 d Health- outpatient [facility] visit for [address], established [id number] patient, [phone] which requires at least 2 of these 3 varghese components: A problem focused history; A problem focused examination; Straightforw maximiliano medical decision making. Counselin Office or 343329 SNOMED-CT () 2018-08-01 complete Mental other 6 d Health- outpatient Araceli visit for [address], [facility], [facility], established [id number] patient, [phone] which requires at least 2 of these 3 varghese components: A problem focused history; A problem focused examination; Straightforw maximiliano medical decision making. Counselin Psychotherap 375886 SNOMED-CT () 2018-08-01 complete Mental y, 45 04 d Health- minutes with [facility] patient [address], [id number] [phone] Psychotherap 277584 SNOMED-CT () 2018-08-15 complete Mental y, 45 04 d Health- minutes with [facility] patient [address], [id number] [phone] Psychotherap 650609 SNOMED-CT () 2018-08-30 complete Mental y, 45 04 d Health- minutes with [facility] patient [address], [phone] [phone] Psychotherap 637773 SNOMED-CT () 2018-09-06 complete Mental y, 45 04 d Health- minutes with [facility] patient [address], [phone] [id number] Psychotherap 753670 SNOMED-CT () 2018-08-23 complete Mental y, 45 04 d Health- minutes with [facility] patient [address], [phone] Psychotherap 374076 SNOMED-CT () 2018-09-20 complete Mental y, 45 04 d Health- minutes with [facility] patient [address], [phone] [phone] Psychotherap 267554 SNOMED-CT () 2018-10-02 complete Mental y, 45 04 d Health- minutes with [facility] patient [address], [id number] [phone] Office or 530832 SNOMED-CT () 2018-10-02 complete Mental other 7 d Health- outpatient [facility] visit for [address], established [id number] patient, [phone] which requires at least 2 of these 3 varghese components: An expanded problem focused history; An expanded problem focused examination; Medical decision making of low SNOMED-CT () 2018-10-12 complete Mental d Health- [address], [id number] [id number] Psychotherap 667328 SNOMED-CT () 2018-10-26 complete Mental y, 45 04 d Health- minutes with [facility] patient [address], [id number] Psychotherap 931706 SNOMED-CT () 2018-11-02 complete Mental y, 45 04 d Health- minutes with [facility] patient [address], [id number] [phone] Psychotherap 400318 SNOMED-CT () 2018-11-09 complete Mental y, 45 04 d Health- minutes with [facility] patient [address], [id number] [phone] Psychotherap 114112 SNOMED-CT () 2018-11-23 complete Mental y, 45 04 d Health- minutes with [facility] patient [address], [id number] [phone] Office or 141301 SNOMED-CT () 2018-12-07 complete Mental other 7 d Health- outpatient [facility] visit for [address], [facility], established [id number] patient, [phone] which requires at least 2 of these 3 varghese components: An expanded problem focused history; An expanded problem focused examination; Medical decision making of low SNOMED-CT () 2018-12-07 complete Mental d Health- [address], [id number] [phone] Psychotherap 177874 SNOMED-CT () 2018-12-28 complete Mental y, 45 04 d Health- minutes with [facility] patient [address], [phone] SNOMED-CT () 2019-01-25 complete Mental d Health- [facility], [id number] [phone] Office or 725453 SNOMED-CT () 2019-01-30 complete Mental other 7 d Health- outpatient [facility] visit for [address], established [id number] patient, [phone] which requires at least 2 of these 3 varghese components: An expanded problem focused history; An expanded problem focused examination; Medical decision making of [facility] Psychotherap 495571 SNOMED-CT () 2019-02-06 complete Mental y, 45 04 d Health- minutes with [facility] patient [address], [id number] [phone] Psychotherap 526848 SNOMED-CT () 2019-02-22 complete Mental y, 45 04 d Health- minutes with [facility] patient [address], [id number] [phone] Office or 764975 SNOMED-CT () 2019-02-27 complete Mental other 6 d Health- outpatient Arac[facility] visit for [address], established [id number] patient, [phone] which requires at least 2 of these 3 varghese components: A problem focused history; A problem focused examination; Straightforw maximiliano medical decision making. Counselin Psychotherap 908011 SNOMED-CT () 2019-03-08 complete Mental y, 45 04 d Health- minutes with [facility] patient [address], [phone] [phone] Psychotherap 147067 SNOMED-CT () 2019-03-21 complete Mental y, 45 04 d Health- minutes with [facility] patient [address], [id number] [phone] Psychotherap 894268 SNOMED-CT () 2019-03-28 complete Mental y, 45 04 d Health- minutes with [facility] patient [address], [id number] [phone] Psychotherap 221427 SNOMED-CT () 2019-04-12 complete Mental y, 45 04 d Health- minutes with [facility] patient [place] [address] [place], [place], [id number] Encounters/Encounter Diagnoses Encounter Name Encounter Diagnosis Diagnosis Diagnosis Date of Service Code Code Name CodeSystem Diagnosis Delivery Location [facility] - 52116 SNOMED-CT 2019-04-12 Behavioral Individual 30 [facility] min Clinic [address] [place], [place], [phone] Vital Signs No Information Social History Element Description Description Start End Code CodeSystem AdditionalInfo Date Date SexAssignedAtBirth Female 1960- F AdministrativeGender 0-31 Hospital Discharge Instructions Reason For Referral Medical Equipment FDA Assessments
--- OUTSIDE RECORDS SUMMARY | 2019-05-20 09:29 | XMS REPORT | Continuity of Care Document ---
:1960 External Reference #:[id number] Author Name Michelle Tejeda NP (transmitted by agent of provider Nella Levi) Address [address], [address] [place] [address] Care Team Providers Name Role Phone Yovana Montoya MD - Internal Care Team Information Warehouse Traffic Supervisor Medicine Problems Active Problems Provider Date Dyspnea [...] daily 7tabs J44.9 Michelle 04/25/2019 500mg Ileana, FLOOR COVERING CONTRACTOR Tablets ER 24HR Prednisone 1 tab daily for 7 11tabs J44.1 Michelle 04/25/2019 5mg Tablets days, then 1/2 tab Ileana, FLOOR COVERING CONTRACTOR daily for 8 days Cpap Supplies Pls [...] with MD hernandez. pls provide pt with [employer] portable concentrator R09.02 Incruse Ellipta inhale one [...] CPT Code Status Date Vaccine Lot # [id number] Given 01/24/2008 Influenza Virus 3Yrs & Over 83879 Given 01/24/2008 Influenza Virus 3Yrs & Over 84738 Given 04/26/2007 Tdap - Tetanus/Diptheria/Acellular Pertussis 82887 Given 12/06/2006 Influenza Virus 3Yrs & Over 35961 Given 12/03/2005 Influenza Virus 3Yrs & Over [...] Available Procedures Date Code Description Status 03/14/2019 49649 Inject Tendon Sheath Or Ligament Aponeurosis Eg Plantar Completed Fascia 01/09/2019 05205 Inject Tendon Sheath Or Ligament Aponeurosis Eg Plantar Completed Fascia Medical Devices Description No Information Available Encounters Type Date Location Provider Dx Diagnosis Office Visit 04/25/2019 Pulmonology And Michelle J44.1 Chronic obstructive 10:00a [facility] pulmonary disease w Corporate Representative (acute) exacerbation R09.02 Hypoxemia G47.33 Obstructive sleep apnea (adult) (pediatric) F17.210 Nicotine dependence, cigarettes, uncomplicated Office Visit 03/14/2019 9:15a Paxton Zarco M65.4 Radial styloid Orthopedics at [facility] tenosynovitis [de [place] Quervain] G56.01 Carpal tunnel syndrome, right upper limb M54.12 Radiculopathy, cervical region Office Visit 02/20/2019 9:45a Paxton Zarco M65.4 Radial styloid Orthopedics at [facility]osynovitis [de [place] Quervain] G56.01 Carpal tunnel syndrome, right upper limb M54.2 Cervicalgia Office Visit 01/09/2019 9:30a Paxton Zarco M65.4 Radial styloid Orthopedics at [facility] tenosynovitis [de [place] Quervain] Assessments Date Code Description Provider 04/25/2019 J44.1 Chronic obstructive pulmonary disease with Michelle Tejeda NP (acute) exacerbation 04/25/2019 R09.02 Hypoxemia Michelle Tjeeda NP 04/25/2019 G47.33 Obstructive sleep apnea (adult) [...] NP at [facility]05/15/2019 9:00 am - Haroldo Tariq MD at [facility] at [place]5506/18/2019 12:00 pm - Haroldo Tariq MD at [facility] at Khmhaj2505/29/2019 8:45 am - Haroldo Tariq MD at [facility] at T[place]y0905/16/2019 12:00 pm - Laurie Wang MD at [facility]04/25/2019 - Michelle Tejeda NPJ44.1 Chronic obstructive pulmonary disease with (acute) exacerbationNew Medication: Prednisone 5 mg - 1 tab daily for 7 days, then 1/2 tab daily for 8 daysFollow up :6-8 weeks (PFTs and 6 min walk prior)Recommendations:Start the antibiotics and fiytwayfbkC11.02 SxurrgxftV30.33 Obstructive sleep apnea (adult) (pediatric) F17.210 Nicotine dependence, cigarettes, uncomplicated Functional Status Description No Information Available Mental Status Description No Information Available Referrals Refer to Reason for Referral Status Appt Date Laurie Wang MD Created [address] [place] [phone]
--- OUTSIDE RECORDS SUMMARY | 2019-05-20 09:29 | XMS REPORT ---
:1960 Author Organization [facility] Care Team Providers Name Role Phone Mary Vaughan Primary Care Physician Unavailable Allergies, Adverse Reactions, Alerts Allergy Code CodeSystem Reaction Severity Criticality Status Start Substance Date nkda Moderate Active Medications Medication Medication Medication Start Stop Route Dose Status Fill Code CodeSystem Date Date Instructions sertraline 010322 RxNorm 2018-02- oral 100 mg active for 30 - 02-25 tablet day(s) mirtazapine 400309 RxNorm 2018- oral 7.5 mg completed for 30 3-14 08-19 tablet day(s) sertraline 362792 RxNorm 2018- oral 100 mg completed for 30 -02 01-27 tablet day(s) Latuda 4332228 RxNorm 2019- oral 80 mg completed for 30 6-18 09-16 tablet day(s) trazodone 141372 RxNorm 2018-02- oral 100 mg active for 30 0-24 -22 tablet day(s) Latuda 0768422 RxNorm 2019- oral 80 mg completed for 30 - 06-18 tablet day(s) mirtazapine 016370 RxNorm 2019- oral 7.5 mg completed for 30 - 09-10 tablet day(s) sertraline 177967 RxNorm 2019- oral 100 mg 2 completed 2 tablet 10-02 11-17 tablet once a day once a for 30 day(s) day mirtazapine 671228 RxNorm 2019- oral 7.5 mg 1 completed Take 1 tablet - 12-09 tablet by mouth at at bedtime for bedtime 30 day(s) Latuda 5531179 RxNorm 2019- oral 60 mg completed for 30 2- 05-21 tablet day(s) trazodone 610937 RxNorm 2019- oral 150 mg completed for 30 5-21 10-24 tablet day(s) Latuda 1099821 RxNorm 2019- oral 80 mg active for 30 9-20 12-19 tablet day(s) sertraline 129991 RxNorm 2019- oral 100 mg completed for 30 5-21 08-19 tablet day(s) trazodone 036986 RxNorm 2018- oral 150 mg completed for 30 3-14 08-19 tablet day(s) sertraline 695351 RxNorm 2019- oral 100 mg completed for 30 2-22 08-19 tablet day(s) Relevant diagnostic tests/laboratory data Narrative No Information Procedures Procedure Code CodeSystem Target Date of Status Service Device Device Device Name Site Procedure Delivery Code Name UID Location Office or [id number] SNOMED-CT () 2018-05-17 complete Mental other 8 d Health- outpatient [place] visit for [address], [facility] [id number] patient, [id number] which requires at least 2 of these 3 varghese components: A detailed history; A detailed examination; Medical decision making of moderate complexity. Counseling and/o Psychotherap [id number] SNOMED-CT () 2018-05-29 complete Mental y, 45 04 d Health- minutes with [place] patient [address], [id number] [id number] Psychotherap [id number] SNOMED-CT () 2018-06-13 complete Mental y, 45 04 d Health- minutes with [place] patient [address], [id number] [id number] Psychotherap [id number] SNOMED-CT () 2018-06-20 complete Mental y, 45 04 d Health- minutes with [place] patient [address], [id number] [phone] Psychotherap [id number] SNOMED-CT () 2018-07-04 complete Mental y, 45 04 d Health- minutes with [facility] patient [address], [id number] [phone] Office or [id number] SNOMED-CT () 2018-07-04 complete Mental other 6 d Health- outpatient [place] visit for [address], established [id number] patient, [id number] which requires at least 2 of these 3 varghese components: A problem focused history; A problem focused examination; Straightforw maximiliano medical decision making. Counselin Office or [id number] SNOMED-CT () 2018-08-01 complete Mental other 6 d Health- outpatient [place] visit for [address], [facility], [facility], established [id number] patient, [id number] which requires at least 2 of these 3 varghese components: A problem focused history; A problem focused examination; Straightforw maximiliano medical decision making. Counselin Psychotherap [id number] SNOMED-CT () 2018-08-01 complete Mental y, 45 04 d Health- minutes with [place] patient [address], [id number] [id number] Psychotherap [id number] SNOMED-CT () 2018-08-15 complete Mental y, 45 04 d Health- minutes with [facility] patient [address], [id number] [phone] Psychotherap [id number] SNOMED-CT () 2018-08-30 complete Mental y, 45 04 d Health- minutes with [place] patient [address], [id number] [phone] Psychotherap [id number] SNOMED-CT () 2018-09-06 complete Mental y, 45 04 d Health- minutes with [facility] patient [address], [id number] [phone] Psychotherap [id number] SNOMED-CT () 2018-08-23 complete Mental y, 45 04 d Health- minutes with [place] patient [address], [id number] [phone] Psychotherap [id number] SNOMED-CT () 2018-09-20 complete Mental y, 45 04 d Health- minutes with [place] patient [address], [id number] [phone] Psychotherap [id number] SNOMED-CT () 2018-10-02 complete Mental y, 45 04 d Health- minutes with [place] patient [address], [id number] [id number] Office or [id number] SNOMED-CT () 2018-10-02 complete Mental other 7 d Health- outpatient [place] visit for [address], established [id number] patient, [id number] which requires at least 2 of these 3 varghese components: An expanded problem focused history; An expanded problem focused examination; Medical decision making of low SNOMED-CT () 2018-10-12 complete Mental d Health- [address], [id number] [id number] Psychotherap [id number] SNOMED-CT () 2018-10-26 complete Mental y, 45 04 d Health- minutes with [place] patient [address], [id number] [id number] Psychotherap [id number] SNOMED-CT () 2018-11-02 complete Mental y, 45 04 d Health- minutes with [place] patient [address], [id number] [phone] Psychotherap [id number] SNOMED-CT () 2018-11-09 complete Mental y, 45 04 d Health- minutes with [facility] patient [address], [id number] [phone] Psychotherap [id number] SNOMED-CT () 2018-11-23 complete Mental y, 45 04 d Health- minutes with [facility] patient [address], [id number] [phone] Office or [id number] SNOMED-CT () 2018-12-07 complete Mental other 7 d Health- outpatient [place] visit for [address], [facility], established [id number] patient, [id number] which requires at least 2 of these 3 varghese components: An expanded problem focused history; An expanded problem focused examination; Medical decision making of low SNOMED-CT () 2018-12-07 complete Mental d Health- [address], [id number] [phone] Psychotherap [id number] SNOMED-CT () 2018-12-28 complete Mental y, 45 04 d Health- minutes with [place] patient [address], [id number] [phone] SNOMED-CT () 2019-01-25 complete Mental d Health- [facility], [id number] [phone] Office or [id number] SNOMED-CT () 2019-01-30 complete Mental other 7 d Health- outpatient [place] visit for [address], established [id number] patient, [id number] which requires at least 2 of these 3 varghese components: An expanded problem focused history; An expanded problem focused examination; Medical decision making of [facility] Psychotherap [id number] SNOMED-CT () 2019-02-06 complete Mental y, 45 04 d Health- minutes with [place] patient [address], [id number] [id number] Psychotherap [id number] SNOMED-CT () 2019-02-22 complete Mental y, 45 04 d Health- minutes with [place] patient [address], [id number] [phone] Office or [id number] SNOMED-CT () 2019-02-27 complete Mental other 6 d Health- outpatient [place] visit for [address], established [id number] patient, [id number] which requires at least 2 of these 3 varghese components: A problem focused history; A problem focused examination; Straightforw maximiliano medical decision making. Counselin Psychotherap [id number] SNOMED-CT () 2019-03-08 complete Mental y, 45 04 d Health- minutes with [facility] patient [address], [id number] [phone] Psychotherap [id number] SNOMED-CT () 2019-03-21 complete Mental y, 45 04 d Health- minutes with [place] patient [address], [id number] [phone] Psychotherap [id number] SNOMED-CT () 2019-03-28 complete Mental y, 45 04 d Health- minutes with [place] patient [address], [id number] [phone] Encounters/Encounter Diagnoses Encounter Encounter Diagnosis Diagnosis Diagnosis Date of Service Name Code Code Name CodeSystem Diagnosis Delivery Location Non-Billable 84807 SNOMED-CT 2019-03-29 [facility] , , Vital Signs No Information Social History Element Description Description Start End Code CodeSystem AdditionalInfo Date Date SexAssignedAtBirth Female 1960-02 F AdministrativeGender 0-31 Hospital Discharge Instructions Reason For Referral Medical Equipment FDA Assessments
--- NOTE | 2019-05-20 10:04 | UC ---
Shoulder Pain HPI - HPI Summary HPI Summary: 58-year-old woman comes in with a chief complaint of right shoulder pain. Pain started couple days ago after she had increased her activities. Pain is right in the shoulder joint itself. She does have chronic neck pain, pinched nerve in her right elbow and carpal tunnel syndrome in her right wrist and hand. Shoulder pain is worse with palpation and movement. She's had prior surgery to that shoulder. She's been taking ibuprofen which doesn't help very much. She has been wearing sling which decreases the pain. Also just been putting ice on it which decreased the pain. - History of Current Complaint Chief Complaint: UCUpperExtremity Stated Complaint: SHOULDER PAIN Time Seen by Provider: 05/20/19 09:28 Hx Last Menstrual Period: post menopause Pain Intensity: 9 - Allergies/Home Medications Allergies/Adverse Reactions: Allergies Allergy/AdvReac Type Severity Reaction Status Date / Time azithromycin Allergy Severe Diarrhea Verified 05/20/19 09:29 codeine Allergy Severe Difficulty Verified 05/20/19 09:29 Breathing, facial swelling Penicillins Allergy Severe Rash, Verified 05/20/19 09:29 facial swelling Sulfa (Sulfonamide Allergy Severe Rash And Verified 05/20/19 09:29 Antibiotics) Itching tetracycline Allergy Severe Rash Verified 05/20/19 09:29 levofloxacin [From Levaquin] AdvReac Severe Anaphylatic Verified 05/20/19 09:29 Shock Bees Allergy Severe Anaphylatic Uncoded 05/20/19 09:29 Shock Home Medications: Home Medications amLODIPine TAB* [Norvasc 5 mg TAB*] 5 mg PO QAM 10/17/12 [History Confirmed 07/03] EPINEPHrine [Epipen 2-Kai] 0.3 mg INJ ONCE PRN 10/24/14 [History Confirmed 05/19] Lisinopril TAB* [Prinivil TAB 10 MG*] 20 mg PO QAM 10/24/14 [History Confirmed 05/20/19] Tolterodine (NF) [Detrol (NF)] 4 mg PO BEDTIME 10/31/15 [History Confirmed 05/19] Soothie 1 drop BOTH EYES DAILY PRN 03/26/16 [History Confirmed 05/20/19] Mirtazapine 7.5 mg PO BEDTIME 05/08/17 [History Confirmed 05/20/19] Albuterol HFA INHALER* [Ventolin HFA Inhaler*] 2 puff INH Q4H PRN 09/21/17 [ History Confirmed 05/20/19] Fluticasone/Vilanterol [Breo Ellipta 200-25 Mcg INH] 1 each IH QAM 09/21/17 [ History Confirmed 05/20/19] Multivitamin [Multivitamins] 1 each PO QAM 09/21/17 [History Confirmed 05/20/19] Oxycodone TAB(NF) [Oxycodone HCl 10 MG] 10 mg PO QID 09/21/17 [History Confirmed 05/20/19] Sertraline* [Zoloft*] 200 mg PO QAM 09/21/17 [History Confirmed 05/20/19] Umeclidinium 62.5 MDI(NF) [Incruse ELLIPTA MDI (NF)] 62.5 mcg IN QAM 09/21/17 [ History Confirmed 05/20/19] clonazePAM TAB(*) [KlonoPIN TAB(*)] 0.5 mg PO TID PRN 09/21/17 [History Confirmed 05/20/19] traZODone TAB* [Desyrel TAB*] 150 mg PO BEDTIME 09/21/17 [History Confirmed 07/03] Morphine Sulfate [Ms Contin] 15 mg PO BID PRN MDD 2 01/04/19 [History Confirmed 05/20/19] Cyclobenzaprine TAB* [Flexeril 10 MG TAB*] 10 mg PO TID PRN 02/02/19 [History Confirmed 05/20/19] Cetirizine* [ZyrTEC 10 MG TAB*] 10 mg PO DAILY 05/20/19 [History Confirmed 05/19] Ibuprofen TAB* [Motrin TAB* 600 MG] 600 mg PO Q6H PRN 05/20/19 [History Confirmed 05/20/19] Lurasidone(*) [Latuda] 100 mg PO DAILY 05/20/19 [History Confirmed 05/20/19] predniSONE 10 mg TAB [Deltasone 10 MG TAB*] 10 mg PO DAILY #5 tab 05/20/19 [Rx] PMH/Surg Hx/FS Hx/Imm Hx Previously Healthy: Yes Endocrine History: Dyslipidemia Cardiovascular History: Hypertension Respiratory History: COPD Psychological History: Bipolar Disorder Other History Of: Negative For: Anticoagulant Therapy - Surgical History Surgical History: Yes Surgery Procedure, Year, and Place: fusion cervical spine(PART OF METAL REMOVED BUT DOES STILL HAVE METAL IN NECK),. BILATERAL SHOULDER REPAIR,. laparoscopy of bowel,. both elbows PINCHED NERVES REPAIRED. UTERINE POLYP REMOVED-CARPAL TUNNEL RIGHT WRIST. LEFT WRIST DECOMPRESSION 2017 - Family History Known Family History: Positive: Cardiac Disease - father [place] >55 y/o, Hypertension, Respiratory Disease - COPD in mother - Social History Alcohol Use: None Alcohol Amount: 2 per year Substance Use Type: Marijuana Substance Use Comment - Amount & Last Used: ocassional Smoking Status (MU): Light Every Day Tobacco Smoker Type: Cigarettes Amount Used/How Often: 5 cig/ day Length of Time of Smoking/Using Tobacco: has smoked since they were a teen Have You Smoked in the Last Year: Yes - "I smoked my last cigarette this morning 03/16/16" "I have patches" When Did the Patient Quit Smoking/Using Tobacco: will be stopping in a couple days has gum and patches Household Exposure Type: Cigarettes - Immunization History Most Recent Influenza Vaccination: 11/2015 Most Recent Tetanus Shot: last 10 years Most Recent Pneumonia Vaccination: none Review of Systems All Other Systems Reviewed And Are Negative: Yes Constitutional: Positive: Negative Skin: Positive: Negative Eyes: Positive: Negative ENT: Positive: Negative Respiratory: Positive: Negative Cardiovascular: Positive: Negative Motor: Positive: Other - see hpi Neurovascular: Positive: Other - see hpi Musculoskeletal: Positive: Other: - see hpi Neurological/Mental Status: Positive: Other - see hpi Psychological: Positive: Negative Is Patient Immunocompromised?: No Physical Exam Triage Information Reviewed: Yes Appearance: Well-Appearing, Well-Nourished, Pain Distress - mild with palpation and exam of right shoulder Vital Signs Reviewed: Yes Eye Exam: Normal Eyes: Positive: Conjunctiva Clear Neck: Positive: Supple Respiratory: Positive: No respiratory distress Musculoskeletal: Positive: Other: - Right shoulder is tender to palpation on the joint line. Neck is nontender to palpation. 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 Patient reports decreased sensation in the right thumb and index finger which is chronic. Normal capillary refill. Patient's wearing a sling which was not removed secondary to increased pain with any range of motion. Neurological: Positive: Alert Psychological: Positive: Age Appropriate Behavior Skin Exam: Normal Shoulder Course/Dx - Course Course Of Treatment: Payroll Tax Specialist: Sudhir Hilario ([id number]) Toddler Caregiver: EARNESTINE (EARNESTINE) Report Date: 05/20/2019 10:18:00 Report Status: Final Start of Report Content Patient Name: VALENTIN NICHOLAS Medical Record#: [id number] Ordering Physician: Taz Michael MD Acct.#: [id number] : Age: 58 Sex: F Location: [facility] Exam Date: 05/20/19941 ADM Status: [facility] ER Order Information: SHOULDER RIGHT 2+ VWS Accession Number: [id number] CPT: 81768 INDICATION: Right shoulder pain x3 days COMPARISON: Chest x-ray February 11, 2019 TECHNIQUE: 4 views of the right shoulder were obtained. FINDINGS: Similar to the prior radiograph the right acromioclavicular joint measures 2.4 cm in width. The visualized bones are otherwise intact and anatomically aligned. IMPRESSION: 1. NO RADIOGRAPHICALLY APPARENT ACUTE ABNORMALITY OF THE RIGHT SHOULDER. 2. THE RIGHT ACROMIOCLAVICULAR JOINT MEASURES 2.4 CM IN DIAMETER SIMILAR TO THE PRIOR RADIOGRAPH. PLEASE CORRELATE TO SURGICAL HISTORY INCLUDING OSTEOTOMY. IN THE ABSENCE OF SURGERY, DIFFERENTIAL DIAGNOSIS INCLUDES HYPERPARATHYROIDISM, RHEUMATOID ARTHRITIS OR DISTAL CLAVICULAR OSTEOLYSIS. If the patient's symptoms persist, follow-up imaging is recommended. <Electronically signed by Sudhir Hilario MD in OV> [id number] Dictated By: Sudhir Hilario MD Dictated Date/Time: 05/20/19 1011 Transcribed Date/Time: 05/20/19 1011 Copy to: CC:Yovana Montoya MD; Taz Michael MD Imaging - [facility] Imaging - [facility] Imaging - [facility] [address] [facility] [address] [place], [place] [id number] [place] [id number] [place] [id number] ph [phone]) ph ) ph ([phone]) End of Report Content I discussed the x-rays with the patient. Discussed the need to remove the sling multiple times a day and do range of motion exercises to avoid frozen shoulder. The patient continue the ibuprofen and the ice. Patient stated in the past similar pain has been helped with 10 mg of prednisone a day and she wishes to have a prescription for prednisone. Patient will follow-up with orthopedics. - Differential Dx/Diagnosis Provider Diagnosis: Right shoulder pain Discharge ED - Sign-Out/Discharge Documenting (check all that apply): Patient Departure All imaging exams completed and their final reports reviewed: Yes - Discharge Plan Condition: Stable Disposition: HOME Prescriptions: predniSONE 10 mg TAB [Deltasone 10 MG TAB*] 10 mg PO DAILY #5 tab Patient Education Materials: Shoulder Pain (ED) Referrals: Yovana Montoya MD [Primary Care Provider] - Kerry Raymond MD [Medical Doctor] - Additional Instructions: FOLLOW UP WITH ORTHOPEDICS. Take your arm out of the sling at least 4 times a day, preferably more often, and perform the range of motion exercises as discussed and demonstrated to help avoid frozen shoulder. GET REEVALUATED IF NOT IMPROVED OR WORSE OR ANY QUESTIONS OR CONCERNS. - Billing Disposition and Condition Condition: STABLE Disposition: Home
[2019-05-20 10:09] VITALS: BP 94/54
== END 2019-05-20 10:45 | disposition home or self-care (01) ==
LOC: UCEAST 09:21
DX: M25.511 Pain in right shoulder (principal); I10 Essential (primary) hypertension; J44.9 Chronic obstructive pulmonary disease, unspecified; F31.9 Bipolar disorder, unspecified; Z79.899 Other long term (current) drug therapy; Z88.5 Allergy status to narcotic agent; Z88.0 Allergy status to penicillin; Z88.2 Allergy status to sulfonamides; Z88.1 Allergy status to other antibiotic agents; Z91.030 Bee allergy status; F17.210 Nicotine dependence, cigarettes, uncomplicated
CPT/HCPCS: 99212; G0463

== ENCOUNTER 2023-06-22 22:07 | Observation (INO) ==
[2023-06-22 22:50] LABS: ABS Basophils 0.1 10^3/uL (0.0-0.1); ABS Lymphocytes 1.7 10^3/uL (1.0-4.8); ABS Monocytes 1.3 10^3/uL (0.0-0.9); ABS Neutrophils 9.5 10^3/uL (1.5-7.6); ABS Nucleated RBC 0.01 10^3/ul; Eosinophil % 0.1 %; Hematocrit 41.2 % (35-45); Hemoglobin 13.9 g/dL (11.5-14.3); Lymphocyte % 13.3 %; Mean Corpuscular Hemoglobin 30.1 pg (27-33); Mean Corpuscular Hgb Conc 33.9 g/dL (31-36); Mean Corpuscular Volume 88.9 fL (80-97); Mean Platelet Volume 7.7 fL (7.5-11.2); Nucleated Red Blood Cells % 0.1 %/100WBC (0.0-0.8); Platelet Count 188 10^3/uL (150-450); Red Blood Count 4.63 10^6/uL (3.63-4.92); Red Cell Distribution Width 14.7 % (12-17); White Blood Count 12.6 10^3/uL (3.8-11.8)
[2023-06-22 22:58] LABS: INR 1.14 (0.83-1.13)
[2023-06-22] MEDS: Albuterol/Ipratropium NEB.SOL (2.5/0.5 MG) 3 ML NEB.SOLN INH SCH (23:03)
[2023-06-22 23:59] LABS: Albumin 3.8 g/dL (3.2-5.2); Albumin/Globulin Ratio 1.2 (1-3); C Reactive Protein 117.6 mg/L (<8.01); Calcium 9.3 mg/dL (8.6-10.3); Creatinine, Serum 0.55 mg/dL (0.51-0.95); Globulin 3.2 g/dL (2-4); Total Bilirubin 0.3 mg/dL (0.2-1.0); eGFR CKD-EPI 104.2 (>60)
[2023-06-23 00:03] LABS: High Sensitivity Troponin 1 Hr 34 pg/mL (<15)
[2023-06-23] MEDS: cefTRIAXone 1 gm/50 mL D5W 1 GM/50 ML BAG IV ONE (00:12)
[2023-06-23] MEDS ORDERED: Albuterol/Ipratropium NEB.SOL (2.5/0.5 MG) 3 ML NEB.SOLN INH PRN (00:43)
[2023-06-23] MEDS: Azithromycin 500 mg/250 ml NS 500 MG/250 ML BAG IVPB ONE (01:21)
[2023-06-23] MEDS: methylPREDNISolone SOD SUCC 125 mg 2 ML VIAL IV ONE (01:21)
[2023-06-23] MEDS ORDERED: Ondansetron 4 mg VIAL 2 MG/ML 2 ml VIAL IV PRN (01:49)
[2023-06-23] MEDS: Albuterol/Ipratropium NEB.SOL (2.5/0.5 MG) 3 ML NEB.SOLN INH SCH ×2 (04:34→06:49)
[2023-06-23 05:36] LABS: TSH Ultra Thyroid Stim Horm 1.35 mcIU/mL (0.34-5.60)
[2023-06-23] MEDS: methylPREDNISolone SOD SUCC 40 mg/ml 1 ml VIAL IV SCH (06:55)
[2023-06-23] MEDS: Enoxaparin 40 MG/0.4 ML SYR SUBCUT SCH (06:55)
[2023-06-23] MEDS: Morphine ER 15 mg TAB ** extended release PO PRN (08:34)
[2023-06-23] MEDS: [UNRECOGNIZED DRUG - OTHER] PO SCH (08:40)
[2023-06-23] MEDS: NF: Cariprazine 3 mg CAP (NF) PO SCH (08:40)
[2023-06-23] MEDS ORDERED: Pravastatin 10 mg TAB (NF) PO SCH (09:00)
[2023-06-23] MEDS ORDERED: Cariprazine 3 mg CAP (NF) PO SCH (09:00)
[2023-06-23] MEDS: Pravastatin 20 mg TAB (NF) PO SCH ×2 (15:09→20:32)
[2023-06-23] MEDS: cefTRIAXone 1 gm/50 mL D5W 1 GM/50 ML BAG IV SCH (23:14)
[2023-06-24] MEDS: Azithromycin 500 mg/250 ml NS 500 MG/250 ML BAG IVPB SCH (00:05)
[2023-06-24] MEDS: Albuterol/Ipratropium NEB.SOL (2.5/0.5 MG) 3 ML NEB.SOLN ONE (04:30)
[2023-06-24 06:55] LABS: ABS Basophils 0.1 10^3/uL (0.0-0.1); ABS Lymphocytes 2.1 10^3/uL (1.0-4.8); ABS Monocytes 1.2 10^3/uL (0.0-0.9); ABS Nucleated RBC 0.01 10^3/ul; Eosinophil % 0.1 %; Hematocrit 36.8 % (35-45); Hemoglobin 12.3 g/dL (11.5-14.3); Lymphocyte % 11.3 %; Mean Corpuscular Hemoglobin 29.6 pg (27-33); Mean Corpuscular Hgb Conc 33.4 g/dL (31-36); Mean Corpuscular Volume 88.6 fL (80-97); Platelet Count 231 10^3/uL (150-450); Red Blood Count 4.15 10^6/uL (3.63-4.92); Red Cell Distribution Width 14.5 % (12-17); White Blood Count 18.3 10^3/uL (3.8-11.8)
[2023-06-24 07:10] LABS: Calcium 9.2 mg/dL (8.6-10.3); Creatinine, Serum 0.62 mg/dL (0.51-0.95); Magnesium 1.8 mg/dL (1.9-2.7); Potassium 4.1 mmol/L (3.5-5.0); eGFR CKD-EPI 101.3 (>60)
[2023-06-24] MEDS: Albuterol/Ipratropium NEB.SOL (2.5/0.5 MG) 3 ML NEB.SOLN INH SCH (07:25)
[2023-06-24] MEDS: methylPREDNISolone SOD SUCC 40 mg/ml 1 ml VIAL IV SCH (13:38)
[2023-06-24] MEDS: Mometasone/Formoter 200/5 MDI INH SCH (19:43)
[2023-06-24] MEDS: Albuterol 2.5mg/3 ml (0.083%) NEB.SOLN INH SCH (19:44)
[2023-06-25 06:06] LABS: Hematocrit 38.5 % (35-45); Mean Corpuscular Hemoglobin 29.9 pg (27-33); Mean Corpuscular Hgb Conc 33.7 g/dL (31-36); Mean Corpuscular Volume 88.9 fL (80-97); Mean Platelet Volume 7.6 fL (7.5-11.2); Platelet Count 298 10^3/uL (150-450); Red Blood Count 4.33 10^6/uL (3.63-4.92); Red Cell Distribution Width 14.2 % (12-17); White Blood Count 17.7 10^3/uL (3.8-11.8)
[2023-06-25 06:49] LABS: Calcium 9.6 mg/dL (8.6-10.3); Creatinine, Serum 0.58 mg/dL (0.51-0.95); Potassium 4.8 mmol/L (3.5-5.0); eGFR CKD-EPI 102.9 (>60)
[2023-06-25 06:56] LABS: Magnesium 1.9 mg/dL (1.9-2.7)
[2023-06-25] MEDS: SPIRIVA Respimat (tiotropium) 2.5 mcg/inh Inhaler INH SCH (07:47)
[2023-06-25 08:53] LABS: ABS Lymphocytes 1.2 10^3/uL (1.0-4.8); ABS Monocytes 0.5 10^3/uL (0.0-0.9); ABS Neutrophils 15.9 10^3/uL (1.5-7.6); Lymphocyte % 6.7 %; RBC Morphology Normal (Normal)
[2023-06-25 10:00] VITALS: BP 147/93
[2023-06-25 10:17] LABS: C Reactive Protein 23.61 mg/L (<8.01)
== END 2023-06-25 12:00 | disposition home or self-care (01) ==
LOC: ED 22:07 → EDHOLD 22:07 → SUATTDRO 06-23 00:42 → EDHOLD 06-23 08:05 → MEDTELE 06-23 12:59
PROVIDERS: ADMIT Student in an Organized Health Care Education/Training Program; ATTEND Internal Medicine

== ENCOUNTER 2023-12-14 07:51 | Observation (INO) ==
[2023-12-14] MEDS: Azithromycin 500 mg/250 ml NS 500 MG/250 ML BAG IVPB ONE (08:57)
[2023-12-14] MEDS: Lactated Ringers 1000 ml BAG IV.FLUID IV ONE (08:58)
[2023-12-14 09:03] LABS: ABS Eosinophils 0.1 10^3/uL (0.0-0.5); ABS Lymphocytes 1.6 10^3/uL (1.0-4.8); ABS Monocytes 0.8 10^3/uL (0.0-0.9); ABS Neutrophils 10.6 10^3/uL (1.5-7.6); Eosinophil % 0.8 %; Hematocrit 34.6 % (35-45); Hemoglobin 11.1 g/dL (11.5-14.3); Mean Corpuscular Hemoglobin 28.9 pg (27-33); Mean Corpuscular Hgb Conc 32.1 g/dL (31-36); Mean Platelet Volume 7.4 fL (7.5-11.2); Platelet Count 288 10^3/uL (150-450); Red Blood Count 3.84 10^6/uL (3.63-4.92); Red Cell Distribution Width 14.2 % (12-17); White Blood Count 13.2 10^3/uL (3.8-11.8)
[2023-12-14] MEDS: Acetylcysteine INHALATION SOL 200 MG/ML NEB.SOLN 10 ML INH ONE ×2 (09:07→13:47)
[2023-12-14] MEDS: Albuterol/Ipratropium NEB.SOL (2.5/0.5 MG) 3 ML NEB.SOLN INH ONE (09:07)
[2023-12-14 09:13] LABS: INR 0.98 (0.85-1.14)
[2023-12-14 09:57] LABS: Albumin 3.8 g/dL (3.2-5.2); Albumin/Globulin Ratio 1.3 (1-3); Creatinine, Serum 0.62 mg/dL (0.51-0.95); Potassium 4.3 mmol/L (3.5-5.0); Total Bilirubin 0.3 mg/dL (0.2-1.0); Total Protein 6.8 g/dL (6.4-8.9); eGFR CKD-EPI 101.3 (>60)
[2023-12-14 10:27] LABS: High Sensitivity Troponin 1 Hr 8 pg/mL (<15)
[2023-12-14] MEDS ORDERED: Polyethylene Glycol 3350 17 GM PACKET PO PRN (10:47)
[2023-12-14] MEDS ORDERED: Al Hydrox/Mg Hydrox/Simet LIQ 30 ML UDC PO PRN (10:47)
[2023-12-14] MEDS: cefTRIAXone 1 gm/50 mL D5W 1 GM/50 ML BAG IV ONE (10:57)
[2023-12-14] MEDS: methylPREDNISolone SOD SUCC 125 mg 2 ML VIAL IV ONE (10:57)
[2023-12-14 11:05] LABS: C Reactive Protein 30.46 mg/L (<8.01)
[2023-12-14] MEDS: Magnesium Sulfate 2 gm BAG 2 GM/50 ML BAG IVPB ONE (11:06)
[2023-12-14] MEDS ORDERED: Ondansetron 4 mg VIAL 2 MG/ML 2 ml VIAL IV PRN (11:46)
[2023-12-14] MEDS: Albuterol/Ipratropium NEB.SOL (2.5/0.5 MG) 3 ML NEB.SOLN INH SCH (12:44)
[2023-12-14] MEDS: Enoxaparin 40 MG/0.4 ML SYR SUBCUT SCH (13:05)
[2023-12-14] MEDS: Albuterol/Ipratropium NEB.SOL (2.5/0.5 MG) 3 ML NEB.SOLN INH PRN (14:00)
[2023-12-14] MEDS: Iohexol 350 (CONTRAST) 500 ML MDV IV ONE (16:41)
[2023-12-14 19:20] LABS: Hepatitis C Antibody Negative (Negative)
[2023-12-14] MEDS: Morphine ER 15 mg TAB ** extended release PO PRN (20:00)
[2023-12-14] MEDS: Cariprazine 3 mg CAP (NF) PO SCH (20:01)
[2023-12-15] MEDS: Mometasone/Formoter 200/5 MDI INH SCH (07:27)
[2023-12-15] MEDS: CMCS: Pravastatin 20 mg TAB (NF) PO SCH (08:36)
[2023-12-15] MEDS ORDERED: Cariprazine 3 mg CAP (NF) PO SCH (09:00)
[2023-12-15] MEDS ORDERED: Azithromycin 500 mg/250 ml NS 500 MG/250 ML BAG IVPB SCH (09:00)
[2023-12-15] MEDS ORDERED: DOXYcycline 100 MG in NS 0.9% 250 ml 250 ML IVPB SCH (09:00)
[2023-12-15] MEDS: cefTRIAXone 1 gm/50 mL D5W 1 GM/50 ML BAG IV SCH (10:36)
[2023-12-15] MEDS: [UNRECOGNIZED DRUG - OTHER] PO SCH (10:54)
[2023-12-15] MEDS: Morphine 2 MG/ML SYRINGE IV ONE (13:20)
[2023-12-15 14:38] LABS: High Sensitivity Troponin 1 Hr 12 pg/mL (<15)
[2023-12-16 09:31] VITALS: BP 146/76
[2023-12-16 10:20] LABS: ABS Eosinophils 0.1 10^3/uL (0.0-0.5); ABS Lymphocytes 3.1 10^3/uL (1.0-4.8); ABS Monocytes 1.4 10^3/uL (0.0-0.9); Eosinophil % 0.3 %; Hematocrit 35.4 % (35-45); Hemoglobin 11.5 g/dL (11.5-14.3); Lymphocyte % 18.5 %; Mean Corpuscular Hgb Conc 32.5 g/dL (31-36); Mean Corpuscular Volume 89.2 fL (80-97); Mean Platelet Volume 6.7 fL (7.5-11.2); Platelet Count 333 10^3/uL (150-450); Red Blood Count 3.97 10^6/uL (3.63-4.92); Red Cell Distribution Width 14.6 % (12-17); White Blood Count 16.5 10^3/uL (3.8-11.8)
[2023-12-16 11:15] LABS: Calcium 9.7 mg/dL (8.6-10.3); Creatinine, Serum 0.75 mg/dL (0.51-0.95); Magnesium 1.9 mg/dL (1.9-2.7); Potassium 3.9 mmol/L (3.5-5.0)
== END 2023-12-16 15:00 | disposition home or self-care (01) ==
LOC: ED 07:51 → EDHOLD 07:51 → SUATTDRO 10:47 → MED 13:51
PROVIDERS: ADMIT Internal Medicine; ATTEND Student in an Organized Health Care Education/Training Program